=== PATIENT | male | born 1965 | race Caucasian/White ===

== ENCOUNTER 2020-03-20 06:00 | Inpatient (IN) | payer SELFPAY ==
[2020-03-20] MEDS ORDERED: Propofol 1,000 MG/100 ML VIAL IV ONE (06:06)
[2020-03-20] MEDS ORDERED: Labetalol HCl 100 MG/20 ML VIAL SLOW IVP PRN (06:38)
[2020-03-20] MEDS ORDERED: hydrALAZINE 20 MG/ML VIAL SLOW IVP PRN (06:38)
[2020-03-20] MEDS ORDERED: cloNIDine 0.1 MG TAB PO PRN (06:38)
[2020-03-20] MEDS ORDERED: Promethazine HCl 12.5 MG in Sodium Chloride 0.9% 50 ML IVPB PRN (06:38)
[2020-03-20] MEDS ORDERED: Morphine 2 MG/ML VIAL SLOW IVP PRN (06:43)
[2020-03-20] MEDS ORDERED: Propofol BOLUS 1,000 MG/100 ML VIAL IV PRN (06:43)
[2020-03-20] MEDS ORDERED: Fentanyl BOLUS 250 ML IVPB PRN (06:43)
[2020-03-20] MEDS ORDERED: DISCONTINUE PREVIOUS NARCOTIC PAIN MEDICATIONS AND BENZODIAZEPINES FS SCH (06:43)
[2020-03-20] MEDS ORDERED: fentaNYL Citrate/PF 2,000 MCG in Sodium Chloride 0.9% 60 ML IV SCH (06:43)
[2020-03-20] MEDS ORDERED: Norepinephrine 8 MG/0.9% NS 250 ML IVPB PRN (06:45)
[2020-03-20] MEDS ORDERED: Ventilator Sedation Protocol 1 EACH FS SCH (06:45)
[2020-03-20] MEDS ORDERED: Electrolyte Replacement Protoc 1 EACH EACH IVPB ONE (06:45)
[2020-03-20] MEDS ORDERED: HumaLOG 300 UNITS/3 ML VIAL SC PRN (06:45)
[2020-03-20] MEDS ORDERED: Electrolyte Replacement Protocol FS PRN (07:00)
[2020-03-20] MEDS ORDERED: ACETYLCYSTEINE IV SCH ×2 (07:15→11:15)
[2020-03-20] MEDS ORDERED: WATER IV SCH ×2 (07:15→11:15)
[2020-03-20] MEDS ORDERED: DEXTROSE 5% IV SCH ×2 (07:15→11:15)
[2020-03-20] MEDS: Lorazepam 2 MG/ML VIAL SLOW IVP PRN ×5 (07:30→17:22)
[2020-03-20] MEDS: Propofol 1,000 MG/100 ML VIAL IV PRN ×4 (07:31→20:02)
[2020-03-20 07:46] LABS: Actual Bicarbonate (HCO3a) 26.4 mEq/L (22-28); Base Excess (BEa) 1.1 mEq/L (-2.0 to +3.0); CO2 Tension 44.5 mmHg (35.0-45.0); Calcium, Ionized (arterial) 1.08 mmol/L (1.12-1.30); O2 Tension (PaO2), arterial 76.9 mmHg (80.0-100.0); Potassium - ABG Lab 2.96 mmol/L (3.70-5.30); pH, Arterial 7.39 (7.35-7.45)
--- NOTE | 2020-03-20 07:47 | RAD ---
Exam: Chest one view HISTORY:Respiratory distress. Status post intubation. Altered mental status. Comparison: 03/20/2020 at 4:09 AM FINDINGS: Lines and tubes: Redemonstration of endotracheal tube, nasogastric tube and a right-sided internal ju gular vascular catheter. Cardiac silhouette:Cardiomegaly Aorta: Unremarkable Pulmonary vessels: Normal Costophrenic angles: Clear LUNGS: Persistent multi focal interstitial and alveolar opacities. Pneumothorax: None Osseous abnormalities: None IMPRESSION: Persistent multi focal interstitial and alveolar opacities, unchanged.
[2020-03-20 07:50] LABS: ALV-art Gradient 580.475 (0-20); Puncture Site RRAD
[2020-03-20 11:26] LABS: Hemoglobin 11.2 g/dL (14.0-18.0); Mean Corpuscular HGB CONC 34.9 g/dL (32.0-36.0); Mean Corpuscular Hemoglobin 30.8 pg (27.0-31.0); Mean Corpuscular Volume 88.4 fL (78.0-98.0); Platelet Count 166 thou/uL (130-400); Red Blood Cell (RBC) Count 3.65 mill/uL (4.70-6.10)
[2020-03-20 11:33] LABS: Lactic Acid 1.8 mmol/L (0.5-2.2)
[2020-03-20 11:39] LABS: ALT (SGPT) 343 U/L (8-55); AST (SGOT) 495 U/L (5-34); Acetaminophen Less than 6.0 mcg/mL (10.0-30.0); Albumin 3.5 g/dL (3.5-5.0); Alkaline Phosphatase 52 U/L (40-110); Anion Gap 16 mmol/L (10-20); BUN (Urea Nitrogen) 38 mg/dL (8.4-25.7); Bilirubin, Total 0.9 mg/dL (0.2-1.2); Calc. Creatinine Clearance 98 mL/min (70-130); Calcium 8.5 mg/dL (7.8-10.44); Carbon Dioxide 30 mmol/L (22-29); Chloride 89 mmol/L (98-107); Estimated GFR-MDRD 55; Globulin 2.3 g/dL (2.4-3.5); Glucose 214 mg/dL (70-105); Protein, Total 5.8 g/dL (6.0-8.3); Sodium 132 mmol/L (136-145)
[2020-03-20 11:44] LABS: Potassium 2.7 mmol/L (3.5-5.1)
[2020-03-20 11:51] LABS: Band 2 % (5-11); Lymphocytes 14 % (21-51); MDiff Complete? YES; Monocytes 3 % (0-10); Neutrophil 81 % (42-75); Platelet Morphology Comment Appears Adequate; RBC Morphology Normal
[2020-03-20] MEDS: Potassium Chloride 40 MEQ in Premix Bag 1 BAG IVPB SCH ×3 (12:27→21:57)
[2020-03-20] MEDS ORDERED: Enoxaparin Sodium 40 MG/0.4 ML SYRINGE SC SCH (13:30)
--- NOTE | 2020-03-20 13:54 | PDOC.HHP ---
Hospitalist HPI - History of Present Illness altered mental status History of Present Illness: Mr. Mireles is a 54-year-old gentleman who was found at home unresponsive. He was initially taken to [place] emergency room and subsequently transferred to this facility for admission. He has a history of opioid addiction. He was reportedly started on methadone recently. He reportedly overdosed on Tylenol and methadone. Patient was reportedly agitated and saturating in the 60s, coughing up frothy red sputum. He was intubated and mechanically ventilated. Patient is currently intubated and mechanically ventilated, admitted to the CCU. He is receiving N-acetylcysteine. He also received dexamethasone furosemide and Zosyn. Hospitalist ROS - Review of Systems ROS unobtainable: due to endotracheal tube - Medication Medications: Active Medications Generic Name Dose Route Start Last Admin Trade Name Freq PRN Reason Stop Dose Admin Albuterol/Ipratropium 3 ml 03/20/20 07:00 03/20/20 12:50 Duoneb NEB 3 ml [id number] BRITTANIE Administration Enoxaparin Sodium 40 mg 03/20/20 13:30 03/20/20 13:23 Lovenox SC 03/20/20 15:30 40 mg NOW BRITTANIE Administration Acetylcysteine 11,000 mg/ 1,055 mls @ 65.938 mls/hr 03/20/20 11:15 03/20/20 10:54 Dextrose/Water IV 03/21/20 03:14 1,055 mls 1115 BRITTANIE Administration Potassium Chloride 40 meq/ 100 mls @ 25 mls/hr 03/20/20 13:00 03/20/20 12:27 Device IVPB 03/20/20 20:59 100 mls Q4H BRITTANIE Administration Lorazepam 2 mg 03/20/20 06:43 03/20/20 13:33 Ativan SLOW IVP 04/19/20 06:43 2 mg Q1H PRN Administration Breakthrough agitation Propofol 1,000 mg 03/20/20 06:43 03/20/20 10:54 Diprivan IV 04/19/20 06:43 1,000 mg INF PRN Administration TO ACHIEVE GOAL RASS Protocol Hospitalist History - Past Medical History Other Medical History: Past medical history is unknown, appears to include opioid addiction Past surgical history: Unknown Allergies: Unknown Current medications: Unknown Social history: Patient reportedly abused opiates and benzodiazepines - Exam General - other findings: Intubated and mechanically ventilated Eye: anicteric sclera ENT: moist mucosa ENT - other findings: ETT Neck: symmetric, no thyromegaly, no lymphadenopathy, no carotid bruit Heart: RRR, no gallops, no rubs, normal peripheral pulses Respiratory: CTAB, no wheezes, normal chest expansion, rales Gastrointestinal: soft, non-distended, normal bowel sounds, no palpable masses Skin: no lesions Psychiatric - other findings: Unable to assess Hospitalist Results - Labs Result Diagrams: 03/20/20 11:09 03/20/20 11:09 Lab results: WBC 13.0 thou/uL (4.8-10.8) H 03/20/20 11:09 Hgb 11.2 g/dL (14.0-18.0) L 03/20/20 11:09 Hct 32.3 % (42.0-52.0) L 03/20/20 11:09 MCV 88.4 fL (78.0-98.0) 03/20/20 11:09 Plt Count 166 thou/uL (130-400) 03/20/20 11:09 Band Neuts % (Manual) 2 % (5-11) L 03/20/20 11:09 ABG pH 7.39 (7.35-7.45) 03/20/20 07:22 ABG pCO2 44.5 mmHg (35.0-45.0) 03/20/20 07:22 ABG pO2 76.9 mmHg (80.0-100.0) L 03/20/20 07:22 Sodium 132 mmol/L (136-145) L 03/20/20 11:09 Potassium 2.7 mmol/L (3.5-5.1) L* 03/20/20 11:09 Chloride 89 mmol/L (98-107) L 03/20/20 11:09 Carbon Dioxide 30 mmol/L (22-29) H 03/20/20 11:09 BUN 38 mg/dL (8.4-25.7) H 03/20/20 11:09 Creatinine 1.36 mg/dL (0.7-1.3) H 03/20/20 11:09 Glucose 214 mg/dL (70-105) H 03/20/20 11:09 Lactic Acid 1.8 mmol/L (0.5-2.2) 03/20/20 11:09 Calcium 8.5 mg/dL (7.8-10.44) 03/20/20 11:09 Total Bilirubin 0.9 mg/dL (0.2-1.2) 03/20/20 11:09 AST 495 U/L (5-34) H 03/20/20 11:09 ALT 343 U/L (8-55) H 03/20/20 11:09 Alkaline Phosphatase 52 U/L (40-110) 03/20/20 11:09 Serum Total Protein 5.8 g/dL (6.0-8.3) L 03/20/20 11:09 Albumin 3.5 g/dL (3.5-5.0) 03/20/20 11:09 Arterial blood gases show pH of 7.21 PCO2 60.5 and PO2 of 78.9. - EKG Interpretation EKG: Telemetry: Normal sinus rhythm - Radiology Interpretation Chest x-ray Status: image reviewed by me Additional Comment: RADIOGRAPH CHEST 1 VIEW: DATE: 03/20/2020 TIME: 4:09 AM HISTORY: 54-year-old male status post intubation, central line placement, and orogastric tube placement. COMPARISON: 05/14/2004 FINDINGS: New multifocal patchy dense small and moderate size consolidations in the bilateral upper lobes, bila teral perihilar regions, and right central infrahilar lower lung zone. New endotracheal tube tip at mid thoracic trachea. New central vascular catheter distal tip overlying right apex at T2-3 level. Ne w esophagogastric tube with side-port at proximal body of stomach. Lateral costophrenic angles not effaced. No pneumothorax. IMPRESSION: 1) somewhat severe bilateral alveolar infiltrates/consolidations: Evidence for bilateral significant pneumonia. Hospitalist H&P A/P - Plan Plan: 1. Drug overdose: Patient overdosed on methadone and acetaminophen. He is currently on Mucomyst drip. QT intervals will be followed. 2.. Acute respiratory failure: Acute hypoxic and hypercapnic respiratory failure secondary to drug overdose versus medication induced pulmonary edema versus aspiration pneumonia. Patient has been started on Zosyn and furosemide, which will be continued. 3. Non-ST elevation myocardial infarction: Patient has an elevated troponin I of 1.649, most likely secondary to non-ST elevation myocardial infarction type II. Cardiology service will be consulted for opinion and help with management. 4. Hyponatremia: Mild, likely asymptomatic. 5.. Hypokalemia: Mild 6. Acute kidney injury: Patient's creatinine is 1.39. Will recheck creatinine with a.m. labs. Level of complexity: High Level of risk: High
[2020-03-20 14:12] LABS: Magnesium 2.3 mg/dL (1.6-2.6)
[2020-03-20 14:15] LABS: Phosphorus Less than 1.0 mg/dL (2.3-4.7)
[2020-03-20] MEDS ORDERED: Potassium Phosphate 30 MMOL in Sodium Chloride 0.9% 250 ML 250 ML IVPB SCH (14:30)
[2020-03-20] MEDS: Piperacillin/Tazobactam 3.375 GM in Sodium Chloride 0.9% 100 ML IVPB SCH ×2 (14:32→20:01)
[2020-03-20] MEDS ORDERED: Potassium Chloride 40 MEQ in Premix Bag 1 BAG IVPB SCH (16:00)
[2020-03-20] MEDS: Famotidine/PF 20 mg/2ml Vial SLOW IVP SCH (20:02)
[2020-03-20 20:30] LABS: Potassium 2.7 mmol/L (3.5-5.1)
[2020-03-20 20:34] LABS: Phosphorus 1.7 mg/dL (2.3-4.7)
[2020-03-20] MEDS ORDERED: Potassium Phosphate 15 MMOL in Sodium Chloride 0.9% 100 ML IVPB SCH (21:00)
[2020-03-21] MEDS: Piperacillin/Tazobactam 3.375 GM in Sodium Chloride 0.9% 100 ML IVPB SCH ×4 (01:02→19:44)
[2020-03-21] MEDS: Potassium Chloride 40 MEQ in Premix Bag 1 BAG IVPB SCH (01:04)
[2020-03-21] MEDS: Propofol 1,000 MG/100 ML VIAL IV PRN ×4 (05:18→18:05)
--- NOTE | 2020-03-21 05:42 | CON ---
DATE OF CONSULTATION: 03/20/2020 HISTORY OF PRESENT ILLNESS: Mr. Maradiaga is a 54-year-old who was admitted with an opiate overdose. Apparently, he has been on methadone. He also apparently has been on Tylenol No. 3. He is admitted to the ICU and is deeply sedated. PAST MEDICAL HISTORY: Unknown. FAMILY HISTORY: Unknown. SOCIAL HISTORY: Unknown. REVIEW OF SYSTEMS: Not obtainable. PHYSICAL EXAMINATION: GENERAL: If his sedation is turned down, he gets combative, but does not follow commands. VITAL SIGNS: Blood pressure 107/55, heart rate 74, and respiratory rate 17. HEAD AND NECK: Unremarkable. LUNGS: Clear. HEART: Regular rhythm. ABDOMEN: Soft. EXTREMITIES: Without edema. LABORATORY DATA: White count 13, hemoglobin 11.2, and platelets 156. Potassium is 2.7, and creatinine 1.36. A pH is 7.39, CO2 of 44, and pO2 of 76. IMPRESSION: Respiratory failure secondary to multiple drug overdose. PLAN: Support until the drugs have worn off. It may take a while for the methadone to wear off. CRITICAL CARE TIME: 30 minutes. Job ID: [id number] MTDD
[2020-03-21 05:44] LABS: #Lymphocytes 0.9 thou/uL (1.20-3.40); #Monocytes 0.9 thou/uL (0.11-0.59); #Neutrophils 14.7 thou/uL (1.40-6.50); %Basophils 0.3 % (0.0-1.0); %Eosinophils 0.1 % (0.0-10.0); %Lymphocytes 5.6 % (21.0-51.0); %Monocytes 5.2 % (0.0-10.0); %Neutrophils 88.9 % (42.0-75.0); Hemoglobin 10.5 g/dL (14.0-18.0); Mean Corpuscular Hemoglobin 30.3 pg (27.0-31.0); Mean Corpuscular Volume 89.1 fL (78.0-98.0); Mean Platelet Volume 10.4 fL (7.4-10.4); Platelet Count 169 thou/uL (130-400); RBC Distribution Width 12.3 % (11.5-14.5); Red Blood Cell (RBC) Count 3.46 mill/uL (4.70-6.10); White Blood Cell (WBC) Count 16.5 thou/uL (4.8-10.8)
[2020-03-21 06:01] LABS: Anion Gap 10 mmol/L (10-20); BUN (Urea Nitrogen) 33 mg/dL (8.4-25.7); Calc. Creatinine Clearance 126 mL/min (70-130); Calcium 8.5 mg/dL (7.8-10.44); Carbon Dioxide 34 mmol/L (22-29); Chloride 95 mmol/L (98-107); Estimated GFR-MDRD 73; Glucose 144 mg/dL (70-105); Sodium 136 mmol/L (136-145)
[2020-03-21 06:36] LABS: Acetaminophen Less than 6.0 mcg/mL (10.0-30.0); Magnesium 2.5 mg/dL (1.6-2.6)
[2020-03-21 06:42] LABS: Phosphorus 1.7 mg/dL (2.3-4.7)
[2020-03-21 07:02] LABS: Actual Bicarbonate (HCO3a) 27.8 mEq/L (22-28); Base Excess (BEa) 6.5 mEq/L (-2.0 to +3.0); CO2 Tension 29.9 mmHg (35.0-45.0); Calcium, Ionized (arterial) 1.11 mmol/L (1.12-1.30); Carboxyhemoglobin (COHb) 0.3 gm% (0.0-3.0); Hemoglobin (Hb) 13.8 g/dL (14.0-18.0); O2 Tension (PaO2), arterial 92.3 mmHg (80.0-100.0); Potassium - ABG Lab 3.02 mmol/L (3.70-5.30)
[2020-03-21 07:05] LABS: ALV-art Gradient 226.825 (0-20); Puncture Site RRAD; pH, Arterial 7.59 (7.35-7.45)
[2020-03-21] MEDS ORDERED: Potassium Chloride 40 MEQ in Premix Bag 1 BAG IVPB SCH (07:30)
[2020-03-21] MEDS ORDERED: Potassium Phosphate 15 MMOL in Sodium Chloride 0.9% 100 ML IVPB SCH ×2 (07:30→08:30)
[2020-03-21] MEDS: Famotidine/PF 20 mg/2ml Vial SLOW IVP SCH ×2 (07:55→20:04)
[2020-03-21] MEDS: Furosemide 40 MG/4 ML VIAL SLOW IVP SCH (07:56)
[2020-03-21] MEDS: Lorazepam 2 MG/ML VIAL SLOW IVP PRN ×4 (07:56→16:58)
[2020-03-21] MEDS: Enoxaparin Sodium 40 MG/0.4 ML SYRINGE SC SCH (07:57)
[2020-03-21] MEDS ORDERED: SODIUM CHLORIDE 0.9% IVPB SCH (08:30)
[2020-03-21] MEDS ORDERED: POTASSIUM CHLORIDE IVPB SCH (08:30)
[2020-03-21 12:18] LABS: Anion Gap 11 mmol/L (10-20); BUN (Urea Nitrogen) 32 mg/dL (8.4-25.7); Calc. Creatinine Clearance 119 mL/min (70-130); Calcium 8.4 mg/dL (7.8-10.44); Carbon Dioxide 35 mmol/L (22-29); Chloride 98 mmol/L (98-107); Estimated GFR-MDRD 68; Glucose 137 mg/dL (70-105); Phosphorus 2.9 mg/dL (2.3-4.7); Potassium 3.5 mmol/L (3.5-5.1); Sodium 140 mmol/L (136-145)
--- NOTE | 2020-03-21 12:51 | CON ---
DATE OF CONSULTATION: 03/21/2020 REASON FOR CONSULTATION: Elevated troponins. HISTORY OF PRESENT ILLNESS: Mr. Maradiaga is a 54-year-old black gentleman, who comes to the hospital for respiratory failure. He apparently overdosed on opiates and Tylenol No. 3, so he was admitted for help with his airway. He is intubated and is already starting to wake up. On my evaluation, he remains intubated and sedated and unable to give me any history. During his initial evaluation, a troponin was drawn that showed troponin of 1.6, so Cardiology has been consulted for this. PAST MEDICAL HISTORY: Unknown. Apparently, opiate addiction. SURGICAL HISTORY: Unobtainable. ALLERGIES: UNOBTAINABLE. OUTPATIENT MEDICATIONS: Unobtainable. SOCIAL HISTORY: Per report, opiate abuse as well as benzodiazepines, but otherwise unable to confirm with the patient. REVIEW OF SYSTEMS: Unobtainable as the patient is sedated and intubated. PHYSICAL EXAMINATION: VITAL SIGNS: Temperature 98.1, pulse 83, respiratory rate 15, saturations are 96% on 50% FiO2. Blood pressure 115/50. GENERAL: Sedated and intubated. NECK: Supple. LUNGS: Have coarse breath sounds anteriorly. CARDIOVASCULAR: S1 and S2. No S3 or S4. No murmurs. ABDOMEN: Soft. Positive bowel sounds. EXTREMITIES: No edema. SKIN: Warm and dry. LABORATORY WORK: Reviewed. On admission, white count was 19, hemoglobin 12, hematocrit 35, platelet count of 267. Coags and ABG were reviewed. Chemistry: Potassium was 2.7 yesterday, has been replaced up to 3.0; phos was low at 1.7; magnesium was normal at 2.3. Troponin was 1.6 with a CK-MB of 38, BNP was 1466. TSH was normal. Albumin was 3.5. UA with 1+ bacteria, 11 to 20 hyaline casts. Urine drug screen was positive for methadone, benzodiazepines. Serology, COVID-19 PCR was not detected. Chest x-ray showed bilateral alveolar infiltrates and consolidations, possible pneumonia, aspiration, also could be pulmonary edema. ASSESSMENT: 1. Acute hypoxic respiratory insufficiency, requiring mechanical ventilation. 2. Opiate and benzodiazepine overdose. 3. Prolonged QT on EKG, currently at 520. 4. Ump-[id number] myocardial infarction. Likely type 2 demand type of ischemia. 5. Acute on chronic systolic versus diastolic heart failure. PLAN: 1. We will get echocardiogram to assess LV function and valvular structures. 2. We will get one more troponin, see where this is going. If his troponin increases tremendously, he will need a heart catheterization for risk stratification. 3. Continue supportive care. Thank you for letting us participate in the care of this patient. We will follow. Forty five minutes of critical care time. Job ID: [id number]
[2020-03-21 13:08] LABS: CKMB 6.5 ng/mL (0-6.6)
--- NOTE | 2020-03-21 15:16 | PRG ---
DATE OF SERVICE: 03/21/2020 OBJECTIVE: VITAL SIGNS: Mr. Maradiaga is afebrile. Heart rate is 87, blood pressure 116/55, respiratory rate 22. LUNGS: Unchanged. HEART: Unchanged. ABDOMEN: Unchanged. NEUROLOGIC: He is still not following commands reliably when sedation is held. IMPRESSION: Multiple opiate overdose. His lab work is essentially unchanged. He has mild leukocytosis. His renal function is stable. Blood gas shows a pH of 7.59, CO2 of 29, and pO2 of 92. Respiratory rate will be decreased. We will extubate him until he is reliably following commands. We will add Precedex. Critical care time 30 min. Job ID: [id number] MTDD
[2020-03-21] MEDS ORDERED: Potassium Chloride 40 MEQ in Sodium Chloride 0.9% 250 ML 250 ML IVPB SCH (17:15)
--- NOTE | 2020-03-21 19:36 | PDOC.HOSPP ---
- Subjective Encounter Date: 03/21/20 Encounter Time: 13:30 Subjective: Patient was seen in follow-up for drug overdose. He is currently intubated, could not obtain review of systems. - Objective Vital Signs & Weight: Vital Signs (12 hours) Temp Pulse Resp Pulse Ox 03/21/20 18:50 76 21 H 93 L 03/21/20 15:59 98 F 03/21/20 15:22 21 H 03/21/20 14:32 85 03/21/20 14:00 98.3 F 03/21/20 13:00 98.3 F 03/21/20 10:20 81 Weight Admit Weight 240 lb Weight 242 lb 11.663 oz Most Recent Monitor Data Heart Rate from ECG 76 NIBP 112/54 NIBP BP-Mean 73 Respiration from ECG 20 SpO2 93 I&O: 03/20/20 03/21/20 03/22/20 06:59 06:59 06:59 Intake Total 2194 627 Output Total 400 2380 1290 Balance -093 -075 -372 Result Diagrams: 03/21/20 05:15 03/21/20 11:45 Additional Labs: Accuchecks 03/21/20 03/21/20 17:15 00:16 POC Glucose 157 H 180 H MAR and labs were reviewed by me. EKG Reviewed by me: Yes (Telemetry normal sinus rhythm, prolonged QT interval) Hospitalist ROS - Review of Systems ROS unobtainable: due to endotracheal tube - Medication Medications: Active Medications Generic Name Dose Route Start Last Admin Trade Name Freq PRN Reason Stop Dose Admin Albuterol/Ipratropium 3 ml 03/20/20 07:00 03/21/20 18:50 Duoneb NEB 3 ml [id number] BRITTANIE Administration Enoxaparin Sodium 40 mg 03/21/20 09:00 03/21/20 07:57 Lovenox SC 40 mg 0900 BRITTANIE Administration Famotidine 20 mg 03/20/20 21:00 03/21/20 07:55 Pepcid SLOW IVP 20 mg BID BRITTANIE Administration Furosemide 40 mg 03/21/20 09:00 03/21/20 07:56 Lasix SLOW IVP 40 mg DAILY BRITTANIE Administration Piperacillin Sod/Tazobactam 100 mls @ 200 mls/hr 03/20/20 14:00 03/21/20 12: 33 Sod 3.375 gm/ Sodium Chloride IVPB 100 mls 0200,0800,1400,2000 BRITTANIE Administration Dexmedetomidine HCl 400 mcg/ 100 mls @ 0 mls/hr 03/21/20 11:00 03/21/20 12:27 Sodium Chloride IVPB 100 mls INF BRITTANIE Administration Protocol Per Protocol Dexmedetomidine HCl 400 mcg/ 100 mls @ 0 mls/hr 03/21/20 11:45 03/21/20 15:23 Sodium Chloride IVPB 100 mls INF BRITTANIE Administration Protocol Titrate Lorazepam 2 mg 03/20/20 06:43 03/21/20 16:58 Ativan SLOW IVP 04/19/20 06:43 2 mg Q1H PRN Administration Breakthrough agitation Propofol 1,000 mg 03/20/20 06:43 03/21/20 18:05 Diprivan IV 04/19/20 06:43 1,000 mg INF PRN Administration TO ACHIEVE GOAL RASS Protocol - Exam General - other findings: Intubated, obese Eye: anicteric sclera ENT: moist mucosa Neck: supple Heart: RRR Respiratory: CTAB Gastrointestinal: soft, non-tender Musculoskeletal: no muscle wasting Psychiatric - other findings: Unable to assess Hosp A/P - Plan continue antibiotics, respiratory therapy Assessment and plan #1 drug overdose: Poison Control Center's instructions being carried out. Patient on Mucomyst for acetaminophen poisoning. 2.. Acute hypoxic respiratory failure: Patient is currently intubated, mechanically ventilated in the CCU. 3. Non-ST elevation myocardial infarction: Likely type II 4. pulmonary edema: Naloxone induced versus secondary to non-ST elevation myocardial infarction type II. Patient is receiving diuretics. 5. Aspiration pneumonia: Continue Zosyn.
[2020-03-22] MEDS: Lorazepam 2 MG/ML VIAL SLOW IVP PRN ×3 (02:50→16:20)
[2020-03-22] MEDS: Piperacillin/Tazobactam 3.375 GM in Sodium Chloride 0.9% 100 ML IVPB SCH ×4 (02:50→20:13)
[2020-03-22] MEDS: Propofol 1,000 MG/100 ML VIAL IV PRN ×4 (03:19→20:13)
[2020-03-22 05:32] LABS: Anion Gap 8 mmol/L (10-20); BUN (Urea Nitrogen) 31 mg/dL (8.4-25.7); Calc. Creatinine Clearance 132 mL/min (70-130); Carbon Dioxide 35 mmol/L (22-29); Chloride 102 mmol/L (98-107); Estimated GFR-MDRD 77; Glucose 137 mg/dL (70-105); Potassium 3.8 mmol/L (3.5-5.1); Sodium 141 mmol/L (136-145)
[2020-03-22 05:43] LABS: Band 5 % (5-11); Hemoglobin 10.5 g/dL (14.0-18.0); Lymphocytes 9 % (21-51); MDiff Complete? YES; Mean Corpuscular HGB CONC 32.7 g/dL (32.0-36.0); Mean Corpuscular Hemoglobin 29.8 pg (27.0-31.0); Mean Corpuscular Volume 91.2 fL (78.0-98.0); Mean Platelet Volume 10.5 fL (7.4-10.4); Monocytes 1 % (0-10); Neutrophil 85 % (42-75); Platelet Count 196 thou/uL (130-400); RBC Distribution Width 12.8 % (11.5-14.5); Red Blood Cell (RBC) Count 3.54 mill/uL (4.70-6.10); White Blood Cell (WBC) Count 13.5 thou/uL (4.8-10.8)
[2020-03-22 05:54] LABS: Phosphorus 2.1 mg/dL (2.3-4.7)
[2020-03-22] MEDS: Furosemide 40 MG/4 ML VIAL SLOW IVP SCH (07:14)
[2020-03-22] MEDS: Famotidine/PF 20 mg/2ml Vial SLOW IVP SCH ×2 (07:15→20:13)
[2020-03-22] MEDS: Enoxaparin Sodium 40 MG/0.4 ML SYRINGE SC SCH (07:15)
--- NOTE | 2020-03-22 08:28 | RAD ---
XR Chest 1 View Portable History: Ventilated patient. Comparison: Radiograph March 20, 2020 Findings: Endotracheal tube tip just below the level of clavicles. Enteric tube tip low diaphragm alt nisha out of field of view. Peripheral airspace opacities throughout the lungs appear less confluent from the comparison exam. Heart size is enlarged. Right IJ central venous catheter tip projects over the mid SVC. Impression: Slight decreased confluent nodular appearance of the airspace opacities which are now sli ghtly more peripheral and less prominent.
--- NOTE | 2020-03-22 11:22 | PDOC.HOSPP ---
- Subjective Encounter Date: 03/22/20 Encounter Time: 11:20 Subjective: Mr. Maradiaga was seen today in follow-up of respiratory failure. He is intubated and sedated. No problems voiced by staff. - Objective Vital Signs & Weight: Vital Signs (12 hours) Temp Pulse Resp BP Pulse Ox 03/22/20 11:04 75 133/71 03/22/20 07:59 98.8 F 03/22/20 07:00 98.8 F 21 H 91 L 03/22/20 06:45 77 122/63 03/22/20 06:00 23 H 03/22/20 04:00 98.4 F 22 H 03/22/20 02:00 23 H 03/22/20 00:00 98.1 F 24 H 03/21/20 23:34 76 22 H 93 L Weight Admit Weight 240 lb Weight 241 lb 4.8 oz Most Recent Monitor Data Heart Rate from ECG 75 NIBP 133/71 NIBP BP-Mean 91 Respiration from ECG 21 SpO2 93 I&O: 03/21/20 03/22/20 03/23/20 06:59 06:59 06:59 Intake Total 2194 1067 0 Output Total 2380 1999 1250 [facility] -186 -933 -1250 Result Diagrams: 03/22/20 04:15 03/22/20 04:15 Additional Labs: Accuchecks 03/22/20 03/21/20 03/21/20 09:49 22:13 17:15 POC Glucose 139 H 147 H 157 H Hospitalist ROS - Medication Medications: Active Medications Generic Name Dose Route Start Last Admin Trade Name Verito PRN Reason Stop Dose Admin Albuterol/Ipratropium 3 ml 03/20/20 07:00 03/22/20 06:41 Duoneb NEB 3 ml [id number] BRITTANIE Administration Enoxaparin Sodium 40 mg 03/21/20 09:00 03/22/20 07:15 Lovenox SC 40 mg 0900 BRITTANIE Administration Famotidine 20 mg 03/20/20 21:00 03/22/20 07:15 Pepcid SLOW IVP 20 mg BID BRITTANIE Administration Furosemide 40 mg 03/21/20 09:00 03/22/20 07:14 Lasix SLOW IVP 40 mg DAILY BRITTANIE Administration Piperacillin Sod/Tazobactam 100 mls @ 200 mls/hr 03/20/20 14:00 03/22/20 07: 15 Sod 3.375 gm/ Sodium Chloride IVPB 100 mls 0200,0800,1400,2000 BRITTANIE Administration Dexmedetomidine HCl 400 mcg/ 100 mls @ 0 mls/hr 03/21/20 11:00 03/22/20 07:50 Sodium Chloride IVPB 100 mls INF BRITTANIE Administration Protocol Per Protocol Dexmedetomidine HCl 400 mcg/ 100 mls @ 0 mls/hr 03/21/20 11:45 03/22/20 11:07 Sodium Chloride IVPB 100 mls INF BRITTANIE Administration Protocol Titrate Lorazepam 2 mg 03/20/20 06:43 03/22/20 11:11 Ativan SLOW IVP 04/19/20 06:43 2 mg Q1H PRN Administration Breakthrough agitation Propofol 1,000 mg 03/20/20 06:43 03/22/20 07:20 Diprivan IV 04/19/20 06:43 1,000 mg INF PRN Administration TO ACHIEVE GOAL RASS Protocol - Exam Eye: PERRL, anicteric sclera Heart: RRR, no murmur, no gallops, no rubs, normal peripheral pulses Respiratory: rhonchi (+ coarse breath sounds bilaterally and rales at the bases) Gastrointestinal: soft, non-tender, non-distended, normal bowel sounds Extremities: no cyanosis, 1+ LE edema Hosp A/P (1) Acute respiratory failure with hypoxemia Code(s): J96.01 - ACUTE RESPIRATORY FAILURE WITH HYPOXIA Status: Acute (2) Aspiration pneumonia Code(s): J69.0 - PNEUMONITIS DUE TO INHALATION OF FOOD AND VOMIT Status: Acute (3) Methadone overdose Code(s): T40.3X1A - POISONING BY METHADONE, ACCIDENTAL (UNINTENTIONAL), INIT Status: Acute - Plan * Acute respiratory failure due to overdose on Methadone, and aspiration pneumonia. He continues to require vent support. * Aspiration pneumonia- continue Zosyn * Wean from the vent as per PCCM * Continue DVT and GI Prophyaxis
--- NOTE | 2020-03-22 16:40 | PDOC.CPN ---
- Subjective Date: 03/22/20 Time: 16:38 Interval history: No new issues. Remains sedated and intubated. - Review of Systems ROS unobtainable: due to endotracheal tube - Objective Allergies/Adverse Reactions: Allergies Allergy/AdvReac Type Severity Reaction Status Date / Time No Allergy Information Allergy Unverified 03/20/20 06:43 Available Visit Medications: Current Medications Albuterol/Ipratropium (Duoneb) 3 ml NEB [id number] [facility] Last Admin: 03/22/20 13:41 Dose: 3 ml Albuterol/Ipratropium (Duoneb) 3 ml NEB Q6H PRN PRN Reason: SOB &/or Wheezing Clonidine (Catapres) 0.1 mg PO BIDPRN PRN PRN Reason: SBP > 160, use second Enoxaparin Sodium (Lovenox) 40 mg SC 0900 [facility] Last Admin: 03/22/20 07:15 Dose: 40 mg Famotidine (Pepcid) 20 mg SLOW IVP BID [facility] Last Admin: 03/22/20 07:15 Dose: 20 mg Furosemide (Lasix) 40 mg SLOW IVP DAILY [facility] Last Admin: 03/22/20 07:14 Dose: 40 mg Hydralazine HCl (Apresoline) 10 mg SLOW IVP Q6H PRN PRN Reason: SBP GREATER THAN 160 Promethazine HCl 12.5 mg/ (Sodium Chloride) 50.5 mls @ 202 mls/hr IVPB Q6H PRN PRN Reason: Nausea/vomiting, use second Fentanyl Citrate 2,000 mcg/ (Sodium Chloride) 100 mls @ 0 mls/hr IV INF [facility]; Protocol Stop: 04/19/20 06:43 Fentanyl Citrate (Fentanyl Bolus) 250 mls @ 0 mls/hr IVPB PRN PRN PRN Reason: Breakthrough pain/agitation Stop: 04/19/20 06:43 Norepinephrine Bitartrate (Levophed) 250 mls @ 0 mls/hr IVPB PRN PRN; Protocol PRN Reason: To maintain MAP > 65 Vasopressin 20 unit/ Sodium (Chloride) 51 mls @ 6 mls/hr IV INF PRN PRN Reason: To maintain MAP > 65 Piperacillin Sod/Tazobactam (Sod 3.375 gm/ Sodium Chloride) 100 mls @ 200 mls/ hr IVPB 0200,0800,1400,2000 BRITTANIE Last Admin: 03/22/20 14:26 Dose: 100 mls Dexmedetomidine HCl 400 mcg/ (Sodium Chloride) 100 mls @ 0 mls/hr IVPB INF BRITTANIE ; Protocol Last Admin: 03/22/20 07:50 Dose: 100 mls Dexmedetomidine HCl 400 mcg/ (Sodium Chloride) 100 mls @ 0 mls/hr IVPB INF BRITTANIE ; Protocol Last Admin: 03/22/20 11:07 Dose: 100 mls Insulin Human Lispro (Humalog) 0 units SC .MILD SLIDING SCALE PRN PRN Reason: Mild Correctional Scale Labetalol HCl (Normodyne) 20 mg SLOW IVP Q4H PRN PRN Reason: SBP > 160, use third Lorazepam (Ativan) 2 mg SLOW IVP Q1H PRN PRN Reason: Breakthrough agitation Stop: 04/19/20 06:43 Last Admin: 03/22/20 16:20 Dose: 2 mg Miscellaneous Medication (Electrolyte Replacement Protocol) 0 each FS ASDIR PRN ; Protocol PRN Reason: ELECTROLYTE REPLACEMENT Morphine Sulfate (Morphine) 2 mg SLOW IVP Q1H PRN PRN Reason: Breakthrough Pain/Agitation Stop: 04/19/20 06:43 Discontinue Previous Narcotic Pain Medications And Benzodiazepines 1 each FS .ONE BRITTANIE Stop: 04/19/20 06:43 Ondansetron HCl (Zofran) 4 mg IVP Q6H PRN PRN Reason: Nausea/Vomiting, use 1st Propofol (Diprivan) 1,000 mg IV INF PRN; Protocol PRN Reason: TO ACHIEVE GOAL RASS Stop: 04/19/20 06:43 Last Admin: 03/22/20 11:49 Dose: 1,000 mg Propofol (Diprivan Bolus) 20 mg IV Q5MIN PRN PRN Reason: BREAKTHROUGH AGITATION Stop: 04/19/20 06:43 Vital Signs & Weight: Vital Signs Temp Pulse Resp BP Pulse Ox 03/22/20 15:26 70 140/74 03/22/20 14:00 17 03/22/20 13:41 76 141/74 H 03/22/20 11:04 75 133/71 03/22/20 07:59 98.8 F 03/22/20 07:00 98.8 F 21 H 91 L 03/22/20 06:45 77 122/63 03/22/20 06:00 23 H Admit Weight 240 lb Weight 241 lb 4.8 oz - Physical Exam General: other (S/I) HEENT: normocephaly Neck: supple neck Cardiac: regular rate and rhythm Lungs: clear to auscultation Neuro: no lateralizing findings Abdomen: active bowel sounds Extremities: 1+ LE edema Skin: clear Musculoskeletal: normal range of motion - Labs Result Diagrams: 03/22/20 04:15 03/22/20 04:15 Troponin/CKMB CK-MB (CK-2) 6.5 ng/mL (0-6.6) 03/21/20 11:45 Troponin I 2.230 ng/mL (< 0.028) H* 03/21/20 11:45 - Telemetry Sinus rhythms and dysrhythmias: sinus rhythm - Assessment/Plan Assessment/Plan: 1. Acute hypoxic respiratory insufficiency, requiring mechanical ventilation. 2. Opiate and benzodiazepine overdose. 3. Prolonged QT, improving. 4. Swi-KP-rxycmzjjh myocardial infarction. Likely type 2 demand type of ischemia. 5. Acute on chronic systolic versus diastolic heart failure. PLAN: - Echo pending today. - Continue supportive care. - Repeat EKG tomorrow AM.
--- NOTE | 2020-03-22 20:31 | PRG ---
DATE OF SERVICE: 03/22/2020 SUBJECTIVE: Diallo Maradiaga still does not follow commands, gets tachypneic and agitated when sedation is held. OBJECTIVE: VITAL SIGNS: He is afebrile. Heart rate is in the 60s, blood pressure 136/75. LUNGS: Clear. HEART: Regular rhythm. ABDOMEN: Soft. EXTREMITIES: Without asymmetry or edema. He moves all 4 extremities equally. LABORATORY DATA: White count 13.5, hemoglobin 10.5, platelets 196. Sodium 141, potassium 3.8, chloride 102, bicarb 35, BUN 31, creatinine 1.02, glucose 135. IMPRESSION: 1. Multiple drug overdose. 2. Probable noncardiogenic edema. ? neurogenic pulmonary edema associated with his drug overdose. He does have diastolic dysfunction by echo. Some of this could be a chemical pneumonitis related to aspiration as well. He is not near any point of weaning or extubation in my opinion. Blood gas is not done today. I guess we dealing with an acid-base disorder. We will check a blood gas in the morning. Critical care time was 30 min. Job ID: [id number] MTDD
[2020-03-23] MEDS: Propofol 1,000 MG/100 ML VIAL IV PRN ×3 (02:09→17:24)
[2020-03-23] MEDS: Piperacillin/Tazobactam 3.375 GM in Sodium Chloride 0.9% 100 ML IVPB SCH ×4 (02:20→19:56)
[2020-03-23 05:13] LABS: #Lymphocytes 1.9 thou/uL (1.20-3.40); #Monocytes 1.1 thou/uL (0.11-0.59); #Neutrophils 9.4 thou/uL (1.40-6.50); %Basophils 0.2 % (0.0-1.0); %Eosinophils 0.2 % (0.0-10.0); %Neutrophils 75.6 % (42.0-75.0); Hemoglobin 11.8 g/dL (14.0-18.0); Mean Corpuscular HGB CONC 34.4 g/dL (32.0-36.0); Mean Corpuscular Hemoglobin 31.4 pg (27.0-31.0); Mean Corpuscular Volume 91.2 fL (78.0-98.0); Mean Platelet Volume 9.8 fL (7.4-10.4); Platelet Count 192 thou/uL (130-400); RBC Distribution Width 12.7 % (11.5-14.5); Red Blood Cell (RBC) Count 3.74 mill/uL (4.70-6.10); White Blood Cell (WBC) Count 12.4 thou/uL (4.8-10.8)
[2020-03-23 05:25] LABS: Anion Gap 11 mmol/L (10-20); BUN (Urea Nitrogen) 30 mg/dL (8.4-25.7); Calc. Creatinine Clearance 163 mL/min (70-130); Calcium 8.6 mg/dL (7.8-10.44); Carbon Dioxide 32 mmol/L (22-29); Chloride 105 mmol/L (98-107); Estimated GFR-MDRD Greater than 90; Glucose 124 mg/dL (70-105); Potassium 3.9 mmol/L (3.5-5.1); Sodium 144 mmol/L (136-145)
[2020-03-23 05:57] LABS: Band 8 % (5-11); Hemoglobin 11.6 g/dL (14.0-18.0); Lymphocytes 13 % (21-51); MDiff Complete? YES; Mean Corpuscular HGB CONC 33.7 g/dL (32.0-36.0); Mean Corpuscular Hemoglobin 30.6 pg (27.0-31.0); Mean Corpuscular Volume 90.8 fL (78.0-98.0); Mean Platelet Volume 9.9 fL (7.4-10.4); Monocytes 6 % (0-10); Neutrophil 73 % (42-75); Platelet Count 193 thou/uL (130-400); RBC Distribution Width 12.5 % (11.5-14.5); White Blood Cell (WBC) Count 12.5 thou/uL (4.8-10.8)
[2020-03-23] MEDS: Famotidine/PF 20 mg/2ml Vial SLOW IVP SCH ×2 (07:29→21:09)
[2020-03-23] MEDS: Furosemide 40 MG/4 ML VIAL SLOW IVP SCH (07:29)
[2020-03-23] MEDS: Enoxaparin Sodium 40 MG/0.4 ML SYRINGE SC SCH (07:29)
--- NOTE | 2020-03-23 08:22 | RAD ---
EXAM: CHEST ONE VIEW HISTORY: On ventilator. Follow-up evaluation. COMPARISON: 03/22/2020 FINDINGS: Endotracheal tube and nasogastric tubes remain in place. Right-sided vascular catheter is again noted in place, but the tip appears to have been mildly advanced and now overlies the expected location of the distal SVC. Increased opacity is again seen at the left lung base. Interstitial and patchy air space opacity is seen at the right lung base. Perihilar interstitial densities appear mildly improved some of which could be related to improvement in depth of inspiration on the current exam. N o other interval change. IMPRESSION: 1. Improvement in perihilar as well as peripheral airspace opacities within the lungs. However, there is increased airspace opacity present at the right lung base. There is suboptimal evaluation of the left lung base due to overlying cardiac silhouette and soft tissue density, but there also appear s to be increased parenchymal opacity at the left lung base. Findings at the left lung base could be related to pleural fluid, pneumonia, or atelectasis.
[2020-03-23 09:44] LABS: Actual Bicarbonate (HCO3a) 27.7 mEq/L (22-28); Base Excess (BEa) 3.7 mEq/L (-2.0 to +3.0); CO2 Tension 39.7 mmHg (35.0-45.0); Calcium, Ionized (arterial) 1.13 mmol/L (1.12-1.30); Carboxyhemoglobin (COHb) 0.3 gm% (0.0-3.0); O2 Tension (PaO2), arterial 67.4 mmHg (80.0-100.0); Potassium - ABG Lab 3.65 mmol/L (3.70-5.30); pH, Arterial 7.46 (7.35-7.45)
[2020-03-23 09:48] LABS: Puncture Site RBA
[2020-03-23 09:49] LABS: ALV-art Gradient 168.175 (0-20)
--- NOTE | 2020-03-23 10:05 | PDOC.HOSPP ---
- Subjective Encounter Date: 03/23/20 Encounter Time: 10:04 Subjective: Mr. Maradiaga was seen today in follow-up of respiratory failure due to opiod overdose and aspiration pneumonia. He is intubated and sedated. No problems voiced by staff. - Objective Vital Signs & Weight: Vital Signs (12 hours) Temp Pulse Resp BP Pulse Ox 03/23/20 08:41 58 L 03/23/20 07:19 22 H 99 03/23/20 07:00 99 F 03/23/20 04:00 98.7 F 03/23/20 02:16 63 133/75 03/23/20 02:00 17 03/23/20 00:51 61 16 99 03/23/20 00:00 98.4 F 18 03/22/20 22:17 64 131/73 Weight Admit Weight 240 lb Weight 242 lb 6.4 oz Most Recent Monitor Data Heart Rate from ECG 64 NIBP 125/64 NIBP BP-Mean 84 Respiration from ECG 15 SpO2 97 I&O: 03/22/20 03/23/20 03/24/20 06:59 06:59 06:59 Intake Total 1067 944 0 Output Total 1999 6545 1300 Balance -933 -1641 -1300 Result Diagrams: 03/23/20 03:30 03/23/20 03:30 Additional Labs: Accuchecks 03/22/20 03/22/20 21:13 14:27 POC Glucose 133 H 135 H Hospitalist ROS - Medication Medications: Active Medications Generic Name Dose Route Start Last Admin Trade Name Freq PRN Reason Stop Dose Admin Albuterol/Ipratropium 3 ml 03/20/20 07:00 03/23/20 08:40 Duoneb NEB 3 ml [id number] BRITTANIE Administration Enoxaparin Sodium 40 mg 03/21/20 09:00 03/23/20 07:29 Lovenox SC 40 mg 0900 BRITTANIE Administration Famotidine 20 mg 03/20/20 21:00 03/23/20 07:29 Pepcid SLOW IVP 20 mg BID BRITTANIE Administration Furosemide 40 mg 03/21/20 09:00 03/23/20 07:29 Lasix SLOW IVP 40 mg DAILY BRITTANIE Administration Piperacillin Sod/Tazobactam 100 mls @ 200 mls/hr 03/20/20 14:00 03/23/20 07: 30 Sod 3.375 gm/ Sodium Chloride IVPB 100 mls 0200,0800,1400,2000 BRITTANIE Administration Dexmedetomidine HCl 400 mcg/ 100 mls @ 0 mls/hr 03/21/20 11:45 03/22/20 11:07 Sodium Chloride IVPB 100 mls INF BRITTANIE Administration Protocol Titrate Lorazepam 2 mg 03/20/20 06:43 03/22/20 16:20 Ativan SLOW IVP 04/19/20 06:43 2 mg Q1H PRN Administration Breakthrough agitation Propofol 1,000 mg 03/20/20 06:43 03/23/20 02:09 Diprivan IV 04/19/20 06:43 1,000 mg INF PRN Administration TO ACHIEVE GOAL RASS Protocol - Exam Eye: PERRL, anicteric sclera Heart: RRR, no murmur, no gallops, no rubs, normal peripheral pulses Respiratory: rhonchi (+ coarse breath sounds at the bases) Gastrointestinal: soft, normal bowel sounds Extremities: no cyanosis, no edema Hosp A/P (1) Acute respiratory failure with hypoxemia Code(s): J96.01 - ACUTE RESPIRATORY FAILURE WITH HYPOXIA Status: Acute (2) Aspiration pneumonia Code(s): J69.0 - PNEUMONITIS DUE TO INHALATION OF FOOD AND VOMIT Status: Acute (3) Methadone overdose Code(s): T40.3X1A - POISONING BY METHADONE, ACCIDENTAL (UNINTENTIONAL), INIT Status: Acute - Plan * Acute respiratory failure due to overdose on Methadone, and aspiration pneumonia. He continues to require vent support. * Aspiration pneumonia- continue Zosyn * Wean from the vent as per PCCM * Continue DVT and GI Prophyaxis * Nutritional support with tube feeding
--- NOTE | 2020-03-23 12:27 | PDOC.CPN ---
- Subjective Date: 03/23/20 Time: 12:24 Interval history: No new issues. Remains sedated and intubated. - Review of Systems ROS unobtainable: due to endotracheal tube - Objective Allergies/Adverse Reactions: Allergies Allergy/AdvReac Type Severity Reaction Status Date / Time No Allergy Information Allergy Unverified 03/20/20 06:43 Available Visit Medications: Current Medications Albuterol/Ipratropium (Duoneb) 3 ml NEB [id number] [facility] Last Admin: 03/23/20 08:40 Dose: 3 ml Albuterol/Ipratropium (Duoneb) 3 ml NEB Q6H PRN PRN Reason: SOB &/or Wheezing Clonidine (Catapres) 0.1 mg PO BIDPRN PRN PRN Reason: SBP > 160, use second Enoxaparin Sodium (Lovenox) 40 mg SC 0900 [facility] Last Admin: 03/23/20 07:29 Dose: 40 mg Famotidine (Pepcid) 20 mg SLOW IVP BID [facility] Last Admin: 03/23/20 07:29 Dose: 20 mg Furosemide (Lasix) 40 mg SLOW IVP DAILY [facility] Last Admin: 03/23/20 07:29 Dose: 40 mg Hydralazine HCl (Apresoline) 10 mg SLOW IVP Q6H PRN PRN Reason: SBP GREATER THAN 160 Promethazine HCl 12.5 mg/ (Sodium Chloride) 50.5 mls @ 202 mls/hr IVPB Q6H PRN PRN Reason: Nausea/vomiting, use second Fentanyl Citrate 2,000 mcg/ (Sodium Chloride) 100 mls @ 0 mls/hr IV INF [facility]; Protocol Stop: 04/19/20 06:43 Fentanyl Citrate (Fentanyl Bolus) 250 mls @ 0 mls/hr IVPB PRN PRN PRN Reason: Breakthrough pain/agitation Stop: 04/19/20 06:43 Norepinephrine Bitartrate (Levophed) 250 mls @ 0 mls/hr IVPB PRN PRN; Protocol PRN Reason: To maintain MAP > 65 Vasopressin 20 unit/ Sodium (Chloride) 51 mls @ 6 mls/hr IV INF PRN PRN Reason: To maintain MAP > 65 Piperacillin Sod/Tazobactam (Sod 3.375 gm/ Sodium Chloride) 100 mls @ 200 mls/ hr IVPB 0200,0800,1400,2000 [facility] Last Admin: 03/23/20 07:30 Dose: 100 mls Dexmedetomidine HCl 400 mcg/ (Sodium Chloride) 100 mls @ 0 mls/hr IVPB INF BRITTANIE ; Protocol Last Admin: 03/22/20 11:07 Dose: 100 mls Insulin Human Lispro (Humalog) 0 units SC .MILD SLIDING SCALE PRN PRN Reason: Mild Correctional Scale Labetalol HCl (Normodyne) 20 mg SLOW IVP Q4H PRN PRN Reason: SBP > 160, use third Lorazepam (Ativan) 2 mg SLOW IVP Q1H PRN PRN Reason: Breakthrough agitation Stop: 04/19/20 06:43 Last Admin: 03/22/20 16:20 Dose: 2 mg Miscellaneous Medication (Electrolyte Replacement Protocol) 0 each FS ASDIR PRN ; Protocol PRN Reason: ELECTROLYTE REPLACEMENT Morphine Sulfate (Morphine) 2 mg SLOW IVP Q1H PRN PRN Reason: Breakthrough Pain/Agitation Stop: 04/19/20 06:43 Discontinue Previous Narcotic Pain Medications And Benzodiazepines 1 each FS .ONE BRITTANIE Stop: 04/19/20 06:43 Ondansetron HCl (Zofran) 4 mg IVP Q6H PRN PRN Reason: Nausea/Vomiting, use 1st Propofol (Diprivan) 1,000 mg IV INF PRN; Protocol PRN Reason: TO ACHIEVE GOAL RASS Stop: 04/19/20 06:43 Last Admin: 03/23/20 02:09 Dose: 1,000 mg Propofol (Diprivan Bolus) 20 mg IV Q5MIN PRN PRN Reason: BREAKTHROUGH AGITATION Stop: 04/19/20 06:43 Vital Signs & Weight: Vital Signs Temp Pulse Resp BP Pulse Ox 03/23/20 08:41 58 L 03/23/20 07:19 22 H 99 03/23/20 07:00 99 F 03/23/20 04:00 98.7 F 03/23/20 02:16 63 133/75 03/23/20 02:00 17 03/23/20 00:51 61 16 99 Admit Weight 240 lb Weight 242 lb 6.4 oz - Physical Exam General: other (S/I) HEENT: normocephaly Neck: supple neck Cardiac: regular rate and rhythm Lungs: normal breath sounds Neuro: no lateralizing findings Abdomen: active bowel sounds Extremities: no edema Skin: clear Musculoskeletal: no pain - Labs Result Diagrams: 03/23/20 03:30 03/23/20 03:30 Troponin/CKMB CK-MB (CK-2) 6.5 ng/mL (0-6.6) 03/21/20 11:45 Troponin I 2.230 ng/mL (< 0.028) H* 03/21/20 11:45 - Telemetry Sinus rhythms and dysrhythmias: sinus rhythm - Assessment/Plan Assessment/Plan: 1. Acute hypoxic respiratory insufficiency, requiring mechanical ventilation. 2. Opiate and benzodiazepine overdose. 3. Prolonged QT, improving. 4. [id number] myocardial infarction. Likely type 2 demand type of ischemia. 5. Acute on chronic systolic versus diastolic heart failure. PLAN: - Continue supportive care. - QT improved on EKG today down to 480. - Normal LV function on echo.
[2020-03-23] MEDS: Lorazepam 2 MG/ML VIAL SLOW IVP PRN ×3 (15:09→22:22)
--- NOTE | 2020-03-23 15:24 | PRG ---
DATE OF SERVICE: 03/23/2020 SUBJECTIVE: Diallo Maradiaga still reliably follows commands. OBJECTIVE: VITAL SIGNS: Heart rate in the 60, blood pressure 131/77, respiratory rate in the teens. LUNGS: Remarkable for coarse equal breath sounds. HEART: Regular rhythm. ABDOMEN: Soft. EXTREMITIES: Without asymmetry. Intake and outputs, negative 1641. PH 7.46, pCO2 of 39, pO2 of 67. Still on 10 of PEEP. LABORATORY DATA: White count 12.5, hemoglobin 11.6, platelets 193. Sodium 144, potassium 3.9, chloride 105, bicarb 32, BUN 30, creatinine 0.82. IMPRESSION: Respiratory failure associated with multiple drug overdose. It is unclear whether or not, he has some sort of hypoxic injury from being down for prolonged period of time at home. I would not recommend extubation at this point. We could hold his sedation during EEG tomorrow if necessary. If he is not following commands off sedation, we could hopefully get a decent EEG tracing or briefly paralyzing with movement is an issue to see if we can get a reliable EEG tracing. He has diffuse seizures with severe slowing. This would argue that he had a component of anoxic injury and then proceeding to an early trach would be the next option. We will continue critical care management. Critical care time 30 minutes. Job ID: [id number]
--- NOTE | 2020-03-23 16:08 | EKG ---
Test Reason : Blood Pressure : / mmHG Vent. Rate : 060 BPM Atrial Rate : 060 BPM P-R Int : 162 ms QRS Dur : 102 ms QT Int : 486 ms P-R-T Axes : 023 009 163 degrees QTc Int : 486 ms Normal sinus rhythm Moderate voltage criteria for LVH, may be normal variant with repolarization abnormality Prolonged QT Abnormal ECG Confirmed by ANDREA WHALEN ([id number]) on 03/23/2020 4:08:25 PM Referred By: KRYSTIAN Confirmed By:ANDREA WHALEN
[2020-03-24] MEDS: Lorazepam 2 MG/ML VIAL SLOW IVP PRN ×10 (00:46→19:11)
[2020-03-24] MEDS: Piperacillin/Tazobactam 3.375 GM in Sodium Chloride 0.9% 100 ML IVPB SCH ×4 (01:32→19:41)
[2020-03-24] MEDS: Propofol 1,000 MG/100 ML VIAL IV PRN ×4 (01:33→22:32)
[2020-03-24 05:00] LABS: Hemoglobin 12.2 g/dL (14.0-18.0); Mean Corpuscular HGB CONC 32.7 g/dL (32.0-36.0); Mean Corpuscular Hemoglobin 29.7 pg (27.0-31.0); Mean Corpuscular Volume 90.9 fL (78.0-98.0); Mean Platelet Volume 9.4 fL (7.4-10.4); Platelet Count 198 thou/uL (130-400); RBC Distribution Width 12.6 % (11.5-14.5); Red Blood Cell (RBC) Count 4.13 mill/uL (4.70-6.10)
[2020-03-24 05:02] LABS: Anion Gap 12 mmol/L (10-20); BUN (Urea Nitrogen) 29 mg/dL (8.4-25.7); Calc. Creatinine Clearance 160 mL/min (70-130); Calcium 8.7 mg/dL (7.8-10.44); Carbon Dioxide 29 mmol/L (22-29); Chloride 108 mmol/L (98-107); Estimated GFR-MDRD Greater than 90; Glucose 108 mg/dL (70-105); Potassium 3.8 mmol/L (3.5-5.1); Sodium 145 mmol/L (136-145)
[2020-03-24 05:42] LABS: Band 6 % (5-11); Eosinophils 1 % (0-10); Lymphocytes 18 % (21-51); MDiff Complete? YES; Monocytes 8 % (0-10); Neutrophil 66 % (42-75); Platelet Morphology Comment Appears Adequate; Polychromasia SLIGHT = 2-3 cells (100X) (0-2/hpf); Reactive Lymphocytes 1 % (0-10)
[2020-03-24] MEDS: Furosemide 40 MG/4 ML VIAL SLOW IVP SCH (07:06)
[2020-03-24] MEDS: Famotidine/PF 20 mg/2ml Vial SLOW IVP SCH ×2 (07:07→19:41)
[2020-03-24] MEDS: Enoxaparin Sodium 40 MG/0.4 ML SYRINGE SC SCH (07:07)
[2020-03-24 07:47] LABS: Actual Bicarbonate (HCO3a) 27.2 mEq/L (22-28); CO2 Tension 36.1 mmHg (35.0-45.0); Calcium, Ionized (arterial) 1.19 mmol/L (1.12-1.30); Carboxyhemoglobin (COHb) 0.3 gm% (0.0-3.0); Hemoglobin (Hb) 13.4 g/dL (14.0-18.0); O2 Tension (PaO2), arterial 64.5 mmHg (80.0-100.0); Potassium - ABG Lab 3.73 mmol/L (3.70-5.30)
[2020-03-24 07:49] LABS: Puncture Site RRA
[2020-03-24 07:50] LABS: ALV-art Gradient 175.575 (0-20)
--- NOTE | 2020-03-24 07:55 | RAD ---
EXAM: Single view of the chest HISTORY: Ventilated patient with respiratory failure COMPARISON: 03/23/2020 FINDINGS: Single view of the chest shows a normal sized cardiomediastinal silhouette. The lines and tubes are unchanged in position. There may be small bilateral pleural effusions. The bones are unremarkable IMPRESSION: Possible small bilateral pleural effusions
--- NOTE | 2020-03-24 09:02 | PDOC.HOSPP ---
- Subjective Encounter Date: 03/24/20 Encounter Time: 09:01 Subjective: Mr. Mccallum was seen in follow-up for acute respiratory failure due to methadone overdose. He remains intubated. He is minimally responsive. No complaints voiced by staff. - Objective Vital Signs & Weight: Vital Signs (12 hours) Temp Pulse Resp BP Pulse Ox 03/24/20 07:49 62 136/68 03/24/20 07:48 62 21 H 98 03/24/20 06:55 16 100 03/24/20 06:52 99.3 F 03/24/20 06:00 18 03/24/20 04:00 99.6 F 19 03/24/20 02:00 61 15 129/70 03/24/20 00:00 98.9 F 17 03/23/20 23:58 61 114/74 03/23/20 22:00 18 03/23/20 21:59 88 161/83 H Weight Admit Weight 240 lb 3.2 oz Weight 242 lb 6.4 oz Most Recent Monitor Data Heart Rate from ECG 66 NIBP 118/58 NIBP BP-Mean 78 Respiration from ECG 21 SpO2 97 I&O: 03/23/20 03/24/20 03/25/20 06:59 06:59 06:59 Intake Total 944 1462 0 Output Total 2585 3275 750 Balance -1641 -1813 -750 Result Diagrams: 03/24/20 04:30 03/24/20 04:30 Additional Labs: Accuchecks 03/24/20 03/23/20 03/23/20 00:40 15:25 10:20 POC Glucose 112 H 131 H 135 H Hospitalist ROS - Medication Medications: Active Medications Generic Name Dose Route Start Last Admin Trade Name Freq PRN Reason Stop Dose Admin Albuterol/Ipratropium 3 ml 03/20/20 07:00 03/24/20 07:48 Duoneb NEB 3 ml [id number] BRITTANIE Administration Enoxaparin Sodium 40 mg 03/21/20 09:00 03/24/20 07:07 Lovenox SC 40 mg 0900 BRITTANIE Administration Famotidine 20 mg 03/20/20 21:00 03/24/20 07:07 Pepcid SLOW IVP 20 mg BID BRITTANIE Administration Furosemide 40 mg 03/21/20 09:00 03/24/20 07:06 Lasix SLOW IVP 40 mg DAILY BRITTANIE Administration Piperacillin Sod/Tazobactam 100 mls @ 200 mls/hr 03/20/20 14:00 03/24/20 07: 07 Sod 3.375 gm/ Sodium Chloride IVPB 100 mls 0200,0800,1400,2000 BRITTANIE Administration Dexmedetomidine HCl 400 mcg/ 100 mls @ 0 mls/hr 03/21/20 11:45 03/24/20 09:00 Sodium Chloride IVPB 100 mls INF BRITTANIE Administration Protocol Titrate Lorazepam 2 mg 03/20/20 06:43 03/24/20 07:07 Ativan SLOW IVP 04/19/20 06:43 2 mg Q1H PRN Administration Breakthrough agitation Propofol 1,000 mg 03/20/20 06:43 03/24/20 01:33 Diprivan IV 04/19/20 06:43 1,000 mg INF PRN Administration TO ACHIEVE GOAL RASS Protocol - Exam Eye: PERRL, anicteric sclera Heart: RRR, no murmur, no gallops, no rubs, normal peripheral pulses Respiratory: CTAB (+ coarse breath sounds) Gastrointestinal: soft, non-tender, non-distended, normal bowel sounds, no palpable masses Extremities: no cyanosis, no edema Hosp A/P (1) Acute respiratory failure with hypoxemia Code(s): J96.01 - ACUTE RESPIRATORY FAILURE WITH HYPOXIA Status: Acute (2) Aspiration pneumonia Code(s): J69.0 - PNEUMONITIS DUE TO INHALATION OF FOOD AND VOMIT Status: Acute (3) Methadone overdose Code(s): T40.3X1A - POISONING BY METHADONE, ACCIDENTAL (UNINTENTIONAL), INIT Status: Acute - Plan * Acute respiratory failure due to overdose on Methadone, and aspiration pneumonia. He continues to require vent support. * There is concern that he may have anoxic brain injury- plan is to reduce sedation and monitor the effects. * Aspiration pneumonia- continue Zosyn * Wean from the vent as per PCCM * Continue DVT and GI Prophyaxis * Nutritional support with tube feeding
[2020-03-24] MEDS: Haloperidol Lactate 5 MG/ML VIAL IM SCH ×3 (11:16→20:34)
[2020-03-24] MEDS ORDERED: Haloperidol Lactate 5 MG/ML VIAL IM SCH (12:00)
--- NOTE | 2020-03-24 15:50 | EKG ---
Test Reason : Blood Pressure : / mmHG Vent. Rate : 063 BPM Atrial Rate : 063 BPM P-R Int : 160 ms QRS Dur : 098 ms QT Int : 438 ms P-R-T Axes : 015 006 165 degrees QTc Int : 448 ms Normal sinus rhythm Moderate voltage criteria for LVH, may be normal variant Abnormal ECG Confirmed by ANDREA WHALEN ([id number]) on 03/24/2020 3:50:10 PM Referred By: KRYSTIAN Confirmed By:ANDREA WHALEN
--- NOTE | 2020-03-24 16:00 | PDOC.CPN ---
- Subjective Date: 03/24/20 Time: 15:59 Interval history: Remains sedated and intubated. - Review of Systems ROS unobtainable: due to endotracheal tube - Objective Allergies/Adverse Reactions: Allergies Allergy/AdvReac Type Severity Reaction Status Date / Time No Known Allergies Allergy Unverified 03/23/20 21:12 Visit Medications: Current Medications Albuterol/Ipratropium (Duoneb) 3 ml NEB [id number] [facility] Last Admin: 03/24/20 13:49 Dose: 3 ml Albuterol/Ipratropium (Duoneb) 3 ml NEB Q6H PRN PRN Reason: SOB &/or Wheezing Clonidine (Catapres) 0.1 mg PO BIDPRN PRN PRN Reason: SBP > 160, use second Enoxaparin Sodium (Lovenox) 40 mg SC 0900 [facility] Last Admin: 03/24/20 07:07 Dose: 40 mg Famotidine (Pepcid) 20 mg SLOW IVP BID [facility] Last Admin: 03/24/20 07:07 Dose: 20 mg Furosemide (Lasix) 40 mg SLOW IVP DAILY [facility] Last Admin: 03/24/20 07:06 Dose: 40 mg Haloperidol Lactate (Haldol) 10 mg IM Q4HR [facility] Last Admin: 03/24/20 11:16 Dose: 10 mg Hydralazine HCl (Apresoline) 10 mg SLOW IVP Q6H PRN PRN Reason: SBP GREATER THAN 160 Promethazine HCl 12.5 mg/ (Sodium Chloride) 50.5 mls @ 202 mls/hr IVPB Q6H PRN PRN Reason: Nausea/vomiting, use second Fentanyl Citrate 2,000 mcg/ (Sodium Chloride) 100 mls @ 0 mls/hr IV INF [facility]; Protocol Stop: 04/19/20 06:43 Fentanyl Citrate (Fentanyl Bolus) 250 mls @ 0 mls/hr IVPB PRN PRN PRN Reason: Breakthrough pain/agitation Stop: 04/19/20 06:43 Norepinephrine Bitartrate (Levophed) 250 mls @ 0 mls/hr IVPB PRN PRN; Protocol PRN Reason: To maintain MAP > 65 Vasopressin 20 unit/ Sodium (Chloride) 51 mls @ 6 mls/hr IV INF PRN PRN Reason: To maintain MAP > 65 Piperacillin Sod/Tazobactam (Sod 3.375 gm/ Sodium Chloride) 100 mls @ 200 mls/ hr IVPB 0200,0800,1400,2000 BRITTANIE Last Admin: 03/24/20 12:42 Dose: 100 mls Dexmedetomidine HCl 400 mcg/ (Sodium Chloride) 100 mls @ 0 mls/hr IVPB INF BRITTANIE ; Protocol Last Admin: 03/24/20 09:00 Dose: 100 mls Insulin Human Lispro (Humalog) 0 units SC .MILD SLIDING SCALE PRN PRN Reason: Mild Correctional Scale Labetalol HCl (Normodyne) 20 mg SLOW IVP Q4H PRN PRN Reason: SBP > 160, use third Lorazepam (Ativan) 2 mg SLOW IVP Q1H PRN PRN Reason: Breakthrough agitation Stop: 04/19/20 06:43 Last Admin: 03/24/20 14:25 Dose: 2 mg Lorazepam (Ativan) 1 mg SLOW IVP Q12HR BRITTANIE Miscellaneous Medication (Electrolyte Replacement Protocol) 0 each FS ASDIR PRN ; Protocol PRN Reason: ELECTROLYTE REPLACEMENT Morphine Sulfate (Morphine) 2 mg SLOW IVP Q1H PRN PRN Reason: Breakthrough Pain/Agitation Stop: 04/19/20 06:43 Discontinue Previous Narcotic Pain Medications And Benzodiazepines 1 each FS .ONE BRITTANIE Stop: 04/19/20 06:43 Ondansetron HCl (Zofran) 4 mg IVP Q6H PRN PRN Reason: Nausea/Vomiting, use 1st Propofol (Diprivan) 1,000 mg IV INF PRN; Protocol PRN Reason: TO ACHIEVE GOAL RASS Stop: 04/19/20 06:43 Last Admin: 03/24/20 14:25 Dose: 1,000 mg Propofol (Diprivan Bolus) 20 mg IV Q5MIN PRN PRN Reason: BREAKTHROUGH AGITATION Stop: 04/19/20 06:43 Vital Signs & Weight: Vital Signs Temp Pulse Resp BP Pulse Ox 03/24/20 14:53 99 F 03/24/20 13:49 65 03/24/20 10:29 70 134/69 03/24/20 10:07 70 134/69 03/24/20 07:49 62 136/68 03/24/20 07:48 62 21 H 98 03/24/20 06:55 16 100 03/24/20 06:52 99.3 F 03/24/20 06:00 18 03/24/20 04:00 99.6 F 19 Admit Weight 240 lb 3.2 oz Weight 242 lb 6.4 oz - Physical Exam General: other (S/I) HEENT: mucus membranes moist Neck: supple neck Cardiac: regular rate and rhythm Lungs: normal breath sounds Neuro: no lateralizing findings Abdomen: active bowel sounds Extremities: no edema Skin: clear Musculoskeletal: no fluid collection - Labs Result Diagrams: 03/24/20 04:30 03/24/20 04:30 Troponin/CKMB CK-MB (CK-2) 6.5 ng/mL (0-6.6) 03/21/20 11:45 Troponin I 2.230 ng/mL (< 0.028) H* 03/21/20 11:45 - Telemetry Sinus rhythms and dysrhythmias: sinus rhythm - Assessment/Plan Assessment/Plan: 1. Acute hypoxic respiratory insufficiency, requiring mechanical ventilation. 2. Opiate and benzodiazepine overdose. 3. Prolonged QT, improving. 4. [id number] myocardial infarction. Likely type 2 demand type of ischemia. 5. Acute on chronic systolic versus diastolic heart failure. PLAN: - Continue supportive care. - QT normalized on EKG today down to 430's. - Normal LV function on echo. - Will sign off. Please call with any questions.
--- NOTE | 2020-03-24 19:47 | PRG ---
DATE OF SERVICE: 03/24/2020 SUBJECTIVE: Diallo Maradiaga had a sedation holiday this morning. He had a prolonged period, but less than an hour where he has actually calm and cooperative, and he became very combative, extremely tachypneic and tachycardic. It was not felt to be [place] to extubate him. He did pass a leak test this morning. OBJECTIVE: LUNGS: Remarkable for coarse equal breath sounds. HEART: Regular rhythm. ABDOMEN: Soft. EXTREMITIES: Without edema. VITAL SIGNS: Blood pressure this afternoon is 135/73, heart rate 66, respiratory rates in the 20s. LABORATORY STUDIES: White count 12, hemoglobin 12.2, platelets 198. Sodium 145, potassium 3.8, chloride 108, bicarb 29, BUN 29, creatinine 0.84. PH 7.5, CO2 of 36, PO2 of 64. IMPRESSION: 1. Respiratory failure associated with opiate overdose. 2. ? Component of hypoxic brain injury. We will add Haldol and Ativan today and see if these help facilitate weaning. I do not feel comfortable extubating at this point. I think he will be so combative that we will not be able to control him and he will end up re-intubated. Critical care time, 30 minutes. Job ID: [id number]
[2020-03-24] MEDS: Lorazepam 2 MG/ML VIAL SLOW IVP SCH (20:35)
[2020-03-25] MEDS: Haloperidol Lactate 5 MG/ML VIAL IM SCH ×6 (00:16→20:13)
[2020-03-25] MEDS: Piperacillin/Tazobactam 3.375 GM in Sodium Chloride 0.9% 100 ML IVPB SCH ×4 (01:02→20:12)
[2020-03-25] MEDS: Lorazepam 2 MG/ML VIAL SLOW IVP PRN (02:47)
[2020-03-25] MEDS: Propofol 1,000 MG/100 ML VIAL IV PRN ×4 (03:15→20:18)
[2020-03-25 04:01] LABS: Anion Gap 11 mmol/L (10-20); BUN (Urea Nitrogen) 28 mg/dL (8.4-25.7); Calc. Creatinine Clearance 132 mL/min (70-130); Calcium 8.6 mg/dL (7.8-10.44); Carbon Dioxide 27 mmol/L (22-29); Chloride 109 mmol/L (98-107); Estimated GFR-MDRD 77; Glucose 94 mg/dL (70-105); Potassium 4.3 mmol/L (3.5-5.1); Sodium 143 mmol/L (136-145)
[2020-03-25 04:20] LABS: Band 5 % (5-11); Eosinophils 1 % (0-10); Hemoglobin 12.9 g/dL (14.0-18.0); Lymphocytes 24 % (21-51); MDiff Complete? YES; Mean Corpuscular HGB CONC 32.7 g/dL (32.0-36.0); Mean Corpuscular Hemoglobin 29.9 pg (27.0-31.0); Mean Corpuscular Volume 91.5 fL (78.0-98.0); Monocytes 9 % (0-10); Neutrophil 61 % (42-75); Platelet Count 214 thou/uL (130-400); RBC Distribution Width 13.2 % (11.5-14.5); Red Blood Cell (RBC) Count 4.32 mill/uL (4.70-6.10); White Blood Cell (WBC) Count 11.4 thou/uL (4.8-10.8)
[2020-03-25 07:23] LABS: Actual Bicarbonate (HCO3a) 23.2 mEq/L (22-28); CO2 Tension 33.4 mmHg (35.0-45.0); Calcium, Ionized (arterial) 1.18 mmol/L (1.12-1.30); Carboxyhemoglobin (COHb) 0.1 gm% (0.0-3.0); Hemoglobin (Hb) 13.7 g/dL (14.0-18.0); O2 Tension (PaO2), arterial 69.4 mmHg (80.0-100.0); Potassium - ABG Lab 4.29 mmol/L (3.70-5.30); pH, Arterial 7.46 (7.35-7.45)
[2020-03-25 07:28] LABS: Puncture Site RR
--- NOTE | 2020-03-25 08:01 | RAD ---
EXAM: CHEST ONE VIEW HISTORY: On ventilator. Follow-up evaluation. COMPARISON: 03/24/2020 FINDINGS: Endotracheal tube remains place with tip overlying the T1-2 level and well above the level of the car muna. Right internal jugular vein central venous catheter and nasogastric tube are also stable in position. Cardiac silhouette and bronchovascular markings are accentuated by the shallow depth inspir ation and portable technique. There is suggestion of increased pleural and parenchymal density at each lung base which may represent small bilateral pleural effusions and atelectasis. Superimposed in filtrates is a possibility. No other interval change. IMPRESSION: 1. Bibasilar pleural and parenchymal lung changes suggesting small bilateral pleural effusions and pr obable atelectasis. However, infiltrate/pneumonia in either lung base could not be excluded. 2. Lines and tubes stable in position. Tip of the endotracheal tube is again seen overlying the T1-2 level.
[2020-03-25] MEDS: Lorazepam 2 MG/ML VIAL SLOW IVP SCH ×2 (08:50→20:13)
[2020-03-25] MEDS: Furosemide 40 MG/4 ML VIAL SLOW IVP SCH (08:50)
[2020-03-25] MEDS: Enoxaparin Sodium 40 MG/0.4 ML SYRINGE SC SCH (08:50)
[2020-03-25] MEDS: Famotidine/PF 20 mg/2ml Vial SLOW IVP SCH ×2 (08:51→20:12)
--- NOTE | 2020-03-25 09:55 | PDOC.HOSPP ---
- Subjective Encounter Date: 03/25/20 Encounter Time: 09:53 Subjective: Mr. Maradiaga was seen today in follow-up of respiratory failure following drug overdose. He was given a sedation holiday yesterday and was awake and following some commands, but then became agitated. - Objective Vital Signs & Weight: Vital Signs (12 hours) Temp Pulse Resp BP 03/25/20 07:28 75 104/56 L 03/25/20 06:00 22 H 03/25/20 04:00 22 H 03/25/20 03:00 98.7 F 03/25/20 02:24 75 144/69 H 03/25/20 02:00 22 H 03/25/20 00:20 68 140/70 03/25/20 00:00 23 H 03/24/20 23:00 98.4 F 03/24/20 22:00 23 H 03/24/20 21:59 69 143/73 H Weight Admit Weight 240 lb 3.2 oz Weight 242 lb 6.4 oz Most Recent Monitor Data Heart Rate from ECG 69 NIBP 106/55 NIBP BP-Mean 72 Respiration from ECG 22 SpO2 97 I&O: 03/24/20 03/25/20 03/26/20 06:59 06:59 06:59 Intake Total 1462 1846 Output Total 3275 2315 100 [facility] -1813 -469 -100 Result Diagrams: 03/25/20 03:19 03/25/20 03:19 Additional Labs: Accuchecks 03/24/20 03/24/20 21:11 15:22 POC Glucose 91 98 Hospitalist ROS - Medication Medications: Active Medications Generic Name Dose Route Start Last Admin Trade Name Verito PRN Reason Stop Dose Admin Albuterol/Ipratropium 3 ml 03/20/20 07:00 03/25/20 07:03 Duoneb NEB 3 ml [id number] BRITTANIE Administration Enoxaparin Sodium 40 mg 03/21/20 09:00 03/25/20 08:50 Lovenox SC 40 mg 0900 BRITTANIE Administration Famotidine 20 mg 03/20/20 21:00 03/25/20 08:51 Pepcid SLOW IVP 20 mg BID BRITTANIE Administration Furosemide 40 mg 03/21/20 09:00 03/25/20 08:50 Lasix SLOW IVP 40 mg DAILY BRITTANIE Administration Haloperidol Lactate 10 mg 03/24/20 13:00 03/25/20 08:50 Haldol IM 10 mg Q4HR BRITTANIE Administration Piperacillin Sod/Tazobactam 100 mls @ 200 mls/hr 03/20/20 14:00 03/25/20 09: 00 Sod 3.375 gm/ Sodium Chloride IVPB 100 mls 0200,0800,1400,2000 BRITTANIE Administration Dexmedetomidine HCl 400 mcg/ 100 mls @ 0 mls/hr 03/21/20 11:45 03/25/20 04:56 Sodium Chloride IVPB 100 mls INF BRITTANIE Administration Protocol Titrate Lorazepam 2 mg 03/20/20 06:43 03/25/20 02:47 Ativan SLOW IVP 04/19/20 06:43 2 mg Q1H PRN Administration Breakthrough agitation Lorazepam 1 mg 03/24/20 21:00 03/25/20 08:50 Ativan SLOW IVP 1 mg Q12HR BRITTANIE Administration Propofol 1,000 mg 03/20/20 06:43 03/25/20 08:49 Diprivan IV 04/19/20 06:43 1,000 mg INF PRN Administration TO ACHIEVE GOAL RASS Protocol - Exam Eye: PERRL, anicteric sclera Heart: RRR, no murmur, no gallops, no rubs, normal peripheral pulses Respiratory: CTAB (+ with the exception of coasre breath sounds) Gastrointestinal: soft, non-tender, non-distended, normal bowel sounds, no palpable masses Extremities: no cyanosis, no edema Hosp A/P (1) Acute respiratory failure with hypoxemia Code(s): J96.01 - ACUTE RESPIRATORY FAILURE WITH HYPOXIA Status: Acute (2) Aspiration pneumonia Code(s): J69.0 - PNEUMONITIS DUE TO INHALATION OF FOOD AND VOMIT Status: Acute (3) Methadone overdose Code(s): T40.3X1A - POISONING BY METHADONE, ACCIDENTAL (UNINTENTIONAL), INIT Status: Acute - Plan * Acute respiratory failure due to overdose on Methadone, and aspiration pneumonia. * Plan is for trial of extubation today * Aspiration pneumonia- continue Zosyn * Continue DVT and GI Prophyaxis * Nutritional support with tube feeding
[2020-03-25] MEDS: Acetaminophen 650 MG/20.3 ML UDCUP PER TUBE PRN ×2 (11:57→18:17)
--- NOTE | 2020-03-25 11:58 | EKG ---
Test Reason : Blood Pressure : / mmHG Vent. Rate : 070 BPM Atrial Rate : 070 BPM P-R Int : 146 ms QRS Dur : 092 ms QT Int : 430 ms P-R-T Axes : 014 000 065 degrees QTc Int : 464 ms Normal sinus rhythm Possible Left atrial enlargement Moderate voltage criteria for LVH, may be normal variant Abnormal ECG Confirmed by ANDREA WHALEN ([id number]) on 03/25/2020 11:58:16 AM Referred By: KRYSTIAN Confirmed By:ANDREA WHALEN
--- NOTE | 2020-03-25 22:19 | PRG ---
DATE OF SERVICE: 03/25/2020 SUBJECTIVE: Diallo Maradiaga is still extremely encephalopathic and combative when his sedation is held. He is febrile today to 103. OBJECTIVE: LUNGS: Clear. HEART: Regular rhythm. ABDOMEN: Soft. EXTREMITIES: Without edema. LABORATORY DATA: Chest x-ray, hazy at both lung bases. White count 11.4, hemoglobin 12.9, platelets 214,000. There is only 5% bands on his peripheral smear. Electrolytes are normal. IMPRESSION: 1. Respiratory failure associated with multiple drug overdose. 2. Persistent encephalopathy. I doubt he has meningitis or encephalitis. I do not feel an LP is indicated. I do think it would be reasonable to get an EEG tomorrow with him all sedation and may be briefly with paralytics on board, so motion artifact will be eliminated. Do not think he has any evidence of a clear-cut pneumonia. He has no obvious abdominal source of fever. He is on DVT prophylaxis. It is unlikely that he has a DVT. He did have a temp of 103. His lines not hold. His bloods have been recultured. He is on Haldol, Precedex, propofol, p.r.n. lorazepam. He is on Zosyn. He does not have anything would lead me to believe that he has a methicillin-resistant Staph infection. We will just continue to await blood cultures and support him. CRITICAL CARE TIME: 30 minutes. Job ID: [id number]
[2020-03-26] MEDS: Propofol 1,000 MG/100 ML VIAL IV PRN ×5 (00:43→23:57)
[2020-03-26] MEDS: Haloperidol Lactate 5 MG/ML VIAL IM SCH ×6 (00:43→20:47)
[2020-03-26] MEDS: Piperacillin/Tazobactam 3.375 GM in Sodium Chloride 0.9% 100 ML IVPB SCH ×4 (01:13→20:49)
[2020-03-26 03:55] LABS: Band 11 % (5-11); Eosinophils 1 % (0-10); Hemoglobin 13.2 g/dL (14.0-18.0); Lymphocytes 25 % (21-51); MDiff Complete? YES; Mean Corpuscular HGB CONC 32.8 g/dL (32.0-36.0); Mean Corpuscular Hemoglobin 29.9 pg (27.0-31.0); Mean Corpuscular Volume 91.3 fL (78.0-98.0); Mean Platelet Volume 9.3 fL (7.4-10.4); Monocytes 2 % (0-10); Neutrophil 61 % (42-75); Platelet Count 198 thou/uL (130-400); White Blood Cell (WBC) Count 13.2 thou/uL (4.8-10.8)
[2020-03-26 03:58] LABS: Anion Gap 11 mmol/L (10-20); BUN (Urea Nitrogen) 36 mg/dL (8.4-25.7); Calc. Creatinine Clearance 114 mL/min (70-130); Calcium 8.8 mg/dL (7.8-10.44); Carbon Dioxide 27 mmol/L (22-29); Chloride 108 mmol/L (98-107); Estimated GFR-MDRD 65; Glucose 107 mg/dL (70-105); Potassium 3.9 mmol/L (3.5-5.1); Sodium 142 mmol/L (136-145)
[2020-03-26] MEDS: Acetaminophen 650 MG/20.3 ML UDCUP PER TUBE PRN (04:23)
[2020-03-26 06:31] LABS: Actual Bicarbonate (HCO3a) 23.2 mEq/L (22-28); Analyzer IN Cardio ER; Base Excess (BEa) 0.1 mEq/L (-2.0 to +3.0); CO2 Tension 33.4 mmHg (35.0-45.0); Calcium, Ionized (arterial) 1.15 mmol/L (1.12-1.30); Carboxyhemoglobin (COHb) 0.1 gm% (0.0-3.0); Hemoglobin (Hb) 13.8 g/dL (14.0-18.0); O2 Tension (PaO2), arterial 63.7 mmHg (80.0-100.0); pH, Arterial 7.46 (7.35-7.45)
[2020-03-26 06:36] LABS: Puncture Site RRA
--- NOTE | 2020-03-26 07:55 | RAD ---
EXAM: Single view of the chest HISTORY: Ventilated patient with respiratory failure COMPARISON: 03/25/2020 FINDINGS: Single view of the chest shows a normal sized cardiomediastinal silhouette. The lines and tubes are unchanged in position. Bibasilar atelectasis versus infiltrates are seen. The bones are unremarkable IMPRESSION: Stable exam
[2020-03-26] MEDS ORDERED: Vecuronium 10 MG VIAL ONE (08:19)
[2020-03-26] MEDS: Vecuronium 10 MG VIAL IVP PRN ×3 (08:20→10:05)
[2020-03-26] MEDS: Famotidine/PF 20 mg/2ml Vial SLOW IVP SCH ×2 (09:10→20:47)
[2020-03-26] MEDS: Enoxaparin Sodium 40 MG/0.4 ML SYRINGE SC SCH ×2 (09:10→09:11)
[2020-03-26] MEDS: Furosemide 40 MG/4 ML VIAL SLOW IVP SCH (09:12)
[2020-03-26] MEDS: Lorazepam 2 MG/ML VIAL SLOW IVP SCH ×2 (09:12→20:48)
--- NOTE | 2020-03-26 09:57 | PDOC.HOSPP ---
- Subjective Encounter Date: 03/26/20 Encounter Time: 09:55 Subjective: Mr. Maradiaga was seen today in follow-up of respiratory failure. He is currently intubated. He is getting an EEG done now. - Objective Vital Signs & Weight: Vital Signs (12 hours) Temp Pulse Resp BP Pulse Ox 03/26/20 07:31 75 116/61 03/26/20 06:00 23 H 03/26/20 04:00 101.6 F H 25 H 03/26/20 02:44 73 111/64 03/26/20 02:00 24 H 03/26/20 00:06 73 114/64 03/26/20 00:04 73 23 H 96 03/26/20 00:00 103.1 F H 24 H 03/25/20 23:09 71 104/60 03/25/20 22:00 24 H Weight Admit Weight 240 lb 3.2 oz Weight 242 lb 4.255 oz Most Recent Monitor Data Heart Rate from ECG 72 NIBP 116/61 NIBP BP-Mean 79 Respiration from ECG 28 SpO2 94 I&O: 03/25/20 03/26/20 03/27/20 06:59 06:59 06:59 Intake Total 1846 1847 Output Total 4663 6926 Balance -009 -058 Result Diagrams: 03/26/20 03:00 03/26/20 03:00 Additional Labs: Accuchecks 03/26/20 03/25/20 03/25/20 04:10 22:17 18:13 POC Glucose 100 117 H 115 H Hospitalist ROS - Medication Medications: Active Medications Generic Name Dose Route Start Last Admin Trade Name Verito PRN Reason Stop Dose Admin Acetaminophen 650 mg 03/25/20 11:20 03/26/20 04:23 Tylenol Elixir PER TUBE 650 mg Q6H PRN Administration Fever > 101 Albuterol/Ipratropium 3 ml 03/20/20 07:00 03/26/20 07:31 Duoneb NEB 3 ml [id number] BRITTANIE Administration Enoxaparin Sodium 40 mg 03/21/20 09:00 03/26/20 09:11 Lovenox SC 40 mg 0900 BRITTANIE Administration Famotidine 20 mg 03/20/20 21:00 03/26/20 09:10 Pepcid SLOW IVP 20 mg BID BRITTANIE Administration Furosemide 40 mg 03/21/20 09:00 03/26/20 09:12 Lasix SLOW IVP 40 mg DAILY BRITTANIE Administration Haloperidol Lactate 10 mg 03/24/20 13:00 03/26/20 09:12 Haldol IM Not Given Q4HR BRITTANIE Piperacillin Sod/Tazobactam 100 mls @ 200 mls/hr 03/20/20 14:00 03/26/20 09: 11 Sod 3.375 gm/ Sodium Chloride IVPB 100 mls 0200,0800,1400,2000 BRITTANIE Administration Dexmedetomidine HCl 400 mcg/ 100 mls @ 0 mls/hr 03/21/20 11:45 03/26/20 03:08 Sodium Chloride IVPB 100 mls INF BRITTANIE Administration Protocol Titrate Lorazepam 2 mg 03/20/20 06:43 03/25/20 02:47 Ativan SLOW IVP 04/19/20 06:43 2 mg Q1H PRN Administration Breakthrough agitation Lorazepam 1 mg 03/24/20 21:00 03/26/20 09:12 Ativan SLOW IVP Not Given Q12HR BRITTANIE Propofol 1,000 mg 03/20/20 06:43 03/26/20 06:12 Diprivan IV 04/19/20 06:43 1,000 mg INF PRN Administration TO ACHIEVE GOAL RASS Protocol Vecuronium [place] 10 mg 03/26/20 08:27 03/26/20 08:50 Norcuron IVP 10 mg Q30MIN PRN Administration Agitation - Exam Eye: PERRL, anicteric sclera Heart: RRR, no murmur, no gallops, no rubs, normal peripheral pulses Respiratory: CTAB, no wheezes, no rales, normal chest expansion Gastrointestinal: soft, non-tender, non-distended, normal bowel sounds, no palpable masses Extremities: no cyanosis, no edema Hosp A/P (1) Acute respiratory failure with hypoxemia Code(s): J96.01 - ACUTE RESPIRATORY FAILURE WITH HYPOXIA Status: Acute (2) Aspiration pneumonia Code(s): J69.0 - PNEUMONITIS DUE TO INHALATION OF FOOD AND VOMIT Status: Acute (3) Methadone overdose Code(s): T40.3X1A - POISONING BY METHADONE, ACCIDENTAL (UNINTENTIONAL), INIT Status: Acute - Plan * Acute respiratory failure due to overdose on Methadone, and aspiration pneumonia. * He is undergoing EEG * Possible Aspiration pneumonia- continue Zosyn * Continue DVT and GI Prophyaxis * Nutritional support with tube feeding
[2020-03-26] MEDS: Metoclopramide HCl 10 MG/2 ML VIAL IVP SCH ×2 (13:45→20:54)
--- NOTE | 2020-03-26 14:10 | EEG ---
DATE OF SERVICE: 03/26/2020 ATTENDING PHYSICIAN: Laurie Rogers MD This EEG was performed using 24-channel [employer] video digital EEG machine with 24-disk electrodes. This was an extended 2 hours 5 minutes of inpatient video EEG recording. Digital analysis of the EEG was done for spike and seizure detection, which revealed no abnormalities. BACKGROUND: There is a nonsustained posterior background rhythm with 6 to 7 Hz. Minimal reactivity is seen with eye opening and closure. HYPERVENTILATION: Not performed. PHOTIC STIMULATION: No significant response seen with photic stimulation. SLEEP: No stage change was observed. EEG DIAGNOSES: 1. Intermittent irregular theta activity seen throughout the recording. 2. Nonsustained slow posterior background rhythm. CLINICAL INTERPRETATION: This EEG is consistent with moderate generalized nonspecific cerebral dysfunction. No ictal or interictal epileptiform abnormalities seen during the recording. Job ID: [id number]
--- NOTE | 2020-03-26 16:17 | EKG ---
Test Reason : Blood Pressure : / mmHG Vent. Rate : 079 BPM Atrial Rate : 079 BPM P-R Int : 150 ms QRS Dur : 092 ms QT Int : 450 ms P-R-T Axes : 015 -01 082 degrees QTc Int : 516 ms Sinus rhythm with Premature atrial complexes Voltage criteria for left ventricular hypertrophy Prolonged QT Abnormal ECG Confirmed by ANDREA WHALEN ([id number]) on 03/26/2020 4:17:17 PM Referred By: KRYSTIAN Confirmed By:ANDREA WHALEN
--- NOTE | 2020-03-26 21:59 | PRG ---
DATE OF SERVICE: 03/26/2020 SUBJECTIVE: Diallo Maradiaga had his EEG today, who chemically paralyzed and turned off sedation, so we can see what his background rhythm was. His findings were nonspecific. He did not have any epileptiform discharges. He did not have severe slowing. sedation was restarted. When his sedation is held, he would not follow commands. OBJECTIVE: LUNGS: Unchanged. HEART: Unchanged. ABDOMEN: Unchanged. LABORATORY DATA: White count 13.2, hemoglobin 13.2 platelets 198. Electrolytes are unremarkable. BUN 36 and creatinine 1.18. IMPRESSION: 1. Respiratory failure associated with drug overdose. 2. Persistent encephalopathy. He is not better over the weekend. He needs a trach early next week. Critical care time 30 min. Job ID: [id number] MTDD
[2020-03-27] MEDS: Piperacillin/Tazobactam 3.375 GM in Sodium Chloride 0.9% 100 ML IVPB SCH (01:46)
[2020-03-27] MEDS: Haloperidol Lactate 5 MG/ML VIAL IM SCH ×2 (01:46→04:34)
[2020-03-27] MEDS: Metoclopramide HCl 10 MG/2 ML VIAL IVP SCH ×4 (01:46→20:30)
[2020-03-27 04:00] LABS: Anion Gap 11 mmol/L (10-20); BUN (Urea Nitrogen) 42 mg/dL (8.4-25.7); Calc. Creatinine Clearance 113 mL/min (70-130); Calcium 8.8 mg/dL (7.8-10.44); Carbon Dioxide 27 mmol/L (22-29); Chloride 109 mmol/L (98-107); Estimated GFR-MDRD 64; Glucose 125 mg/dL (70-105); Potassium 3.9 mmol/L (3.5-5.1); Sodium 143 mmol/L (136-145)
[2020-03-27 04:33] LABS: Band 3 % (5-11); Eosinophils 1 % (0-10); Hypochromia SLIGHT = 6-15 cells (100X) (0-5/hpf); Lymphocytes 12 % (21-51); MDiff Complete? YES; Mean Corpuscular HGB CONC 33.1 g/dL (32.0-36.0); Mean Corpuscular Hemoglobin 30.3 pg (27.0-31.0); Mean Corpuscular Volume 91.4 fL (78.0-98.0); Mean Platelet Volume 9.6 fL (7.4-10.4); Monocytes 9 % (0-10); Neutrophil 74 % (42-75); Platelet Count 165 thou/uL (130-400); Platelet Morphology Comment Appears Adequate; RBC Distribution Width 12.8 % (11.5-14.5); Reactive Lymphocytes 1 % (0-10); Red Blood Cell (RBC) Count 4.29 mill/uL (4.70-6.10); White Blood Cell (WBC) Count 12.9 thou/uL (4.8-10.8)
[2020-03-27] MEDS: Propofol 1,000 MG/100 ML VIAL IV PRN ×3 (04:34→23:49)
[2020-03-27] MEDS: Acetaminophen 650 MG/20.3 ML UDCUP PER TUBE PRN ×2 (05:34→10:56)
[2020-03-27] MEDS ORDERED: Meropenem 2 GM, Admixture Fee 1 EACH in Sodium Chloride 0.9% 100 ML IVPB SCH ×2 (06:45→14:00)
[2020-03-27 06:58] LABS: Actual Bicarbonate (HCO3a) 23.3 mEq/L (22-28); Analyzer IN Cardio ER; Base Excess (BEa) 1.1 mEq/L (-2.0 to +3.0); CO2 Tension 30.4 mmHg (35.0-45.0); Calcium, Ionized (arterial) 1.15 mmol/L (1.12-1.30); Carboxyhemoglobin (COHb) 0.3 gm% (0.0-3.0); Hemoglobin (Hb) 13.8 g/dL (14.0-18.0); Potassium - ABG Lab 3.82 mmol/L (3.70-5.30)
--- NOTE | 2020-03-27 07:51 | RAD ---
EXAM: Single view of the chest HISTORY: Ventilated patient with respiratory failure COMPARISON: 03/26/2020 FINDINGS: Single view of the chest shows a normal sized cardiomediastinal silhouette. The lines and tubes are unchanged in position. Bibasilar atelectasis is seen. The bones are unremarkable IMPRESSION: Stable exam
[2020-03-27 08:04] LABS: Puncture Site RRAD
[2020-03-27] MEDS: Furosemide 40 MG/4 ML VIAL SLOW IVP SCH (08:48)
[2020-03-27] MEDS: Lorazepam 2 MG/ML VIAL SLOW IVP SCH ×2 (08:49→20:31)
[2020-03-27] MEDS: Famotidine/PF 20 mg/2ml Vial SLOW IVP SCH ×2 (08:49→20:30)
[2020-03-27] MEDS: Meropenem 2 GM, Admixture Fee 1 EACH in Sodium Chloride 0.9% 100 ML IVPB SCH ×2 (09:48→17:38)
--- NOTE | 2020-03-27 09:51 | PRG ---
DATE OF SERVICE: 03/27/2020 SUBJECTIVE: Mr. Maradiaga still does not follow commands. He gets agitated. Sedation is held. He is still febrile. He was switched to meropenem, and vancomycin will be added. His cultures remain negative. . I suppose he could have a retrocardiac infiltrate or an infiltrate behind his diaphragm that was not seen easily on his chest x-ray. OBJECTIVE: LUNGS: Remarkable for coarse equal breath sounds. HEART: Regular rhythm. ABDOMEN: Soft. EXTREMITIES: Without edema. LABORATORY DATA: White count 12.9, hemoglobin 13.0, and platelets 165. He only has 3% bands on his peripheral smear. Sodium 143, potassium 3.9, chloride 109, bicarbonate 27, BUN 42, creatinine 1.19. The pH 7.5, pCO2 of 30, and pO2 of 77. IMPRESSION AND PLAN: 1. Status post intubation after methadone overdose. 2. Probable hypoxic encephalopathy. There, he never arrested from what I can tell from the records. 3. If he does not have normalization of his mental status and can not follow commands by the end of this weekend, I would recommend early tracheostomy early next week. I doubt he will be weanable this weekend. 4. Other issues include a prolonged QT interval and non ST-elevation myocardial infarction. It was felt to be demand ischemia and diastolic heart failure. 5. Chest x-ray was unchanged today. He has bibasilar haziness. Again as mentioned, his antimicrobial therapy was changed. Critical care time 30 min. Job ID: [id number] MTDD
--- NOTE | 2020-03-27 10:56 | PDOC.HOSPP ---
- Subjective Encounter Date: 03/27/20 Encounter Time: 10:54 Subjective: Mr. Maradiaga was seen today in follow-up of metabolic encephalopathy and respiratory failure due to methadone overdose. He is still encephalopathic. He remains intubated. - Objective Vital Signs & Weight: Vital Signs (12 hours) Temp Pulse Resp BP Pulse Ox 03/27/20 08:05 103 H 03/27/20 08:00 102.3 F H 25 H 03/27/20 07:00 101.7 F H 03/27/20 06:38 76 25 H 98 03/27/20 06:00 25 H 03/27/20 04:00 102.0 F H 30 H 03/27/20 02:55 80 112/54 L 03/27/20 02:00 26 H 03/27/20 01:08 72 27 H 96 03/27/20 00:00 99.7 F H 27 H Weight Admit Weight 240 lb 3.2 oz Weight 218 lb 4.122 oz Most Recent Monitor Data Heart Rate from ECG 92 NIBP 122/63 NIBP BP-Mean 82 Respiration from ECG 34 SpO2 99 I&O: 03/26/20 03/27/20 03/28/20 06:59 06:59 06:59 Intake Total 1847 909.4 40 Output Total 2690 2008 175 Balance -843 -1098.6 -135 Result Diagrams: 03/27/20 03:22 03/27/20 03:22 Additional Labs: Accuchecks 03/27/20 03/26/20 00:05 18:32 POC Glucose 115 H 119 H Hospitalist ROS - Medication Medications: Active Medications Generic Name Dose Route Start Last Admin Trade Name Verito PRN Reason Stop Dose Admin Acetaminophen 650 mg 03/25/20 11:20 03/27/20 05:34 Tylenol Elixir PER TUBE 650 mg Q6H PRN Administration Fever > 101 Albuterol/Ipratropium 3 ml 03/20/20 07:00 03/27/20 06:38 Duoneb NEB 3 ml [id number] BRITTANIE Administration Enoxaparin Sodium 40 mg 03/21/20 09:00 03/26/20 09:11 Lovenox SC 40 mg 0900 BRITTANIE Administration Famotidine 20 mg 03/20/20 21:00 03/27/20 08:49 Pepcid SLOW IVP 20 mg BID BRITTANIE Administration Furosemide 40 mg 03/21/20 09:00 03/27/20 08:48 Lasix SLOW IVP 40 mg DAILY BRITTANIE Administration Dexmedetomidine HCl 400 mcg/ 100 mls @ 0 mls/hr 03/21/20 11:45 03/27/20 04:34 Sodium Chloride IVPB 100 mls INF BRITTANIE Administration Protocol Titrate Vancomycin HCl 2 gm/ Sodium 500 mls @ 250 mls/hr 03/27/20 09:00 03/27/20 10: 32 Chloride IV 03/27/20 11:00 500 mls NOW BRITTANIE Administration Meropenem 2 gm/ Miscellaneous 100 mls @ 200 mls/hr 03/27/20 09:00 03/27/20 09 :48 Medication 1 each/ Sodium IVPB 100 mls Chloride Q8H BRITTANIE Administration Lorazepam 2 mg 03/20/20 06:43 03/25/20 02:47 Ativan SLOW IVP 04/19/20 06:43 2 mg Q1H PRN Administration Breakthrough agitation Lorazepam 1 mg 03/24/20 21:00 03/27/20 08:49 Ativan SLOW IVP Not Given Q12HR BRITTANIE Metoclopramide HCl 10 mg 03/26/20 14:00 03/27/20 08:47 Reglan IVP 10 mg 0200,0800,1400,2000 BRITTANIE Administration Propofol 1,000 mg 03/20/20 06:43 03/27/20 09:48 Diprivan IV 04/19/20 06:43 1,000 mg INF PRN Administration TO ACHIEVE GOAL RASS Protocol Vecuronium [place] 10 mg 03/26/20 08:27 03/26/20 10:05 Norcuron IVP 10 mg Q30MIN PRN Administration Agitation - Exam Eye: PERRL, anicteric sclera Heart: RRR, no murmur, no gallops, no rubs, normal peripheral pulses Respiratory: CTAB (+ coarse breath sounds) Gastrointestinal: soft, non-tender, non-distended, normal bowel sounds, no palpable masses, no hepatomegaly Extremities: no cyanosis, no clubbing, no edema Hosp A/P (1) Acute respiratory failure with hypoxemia Code(s): J96.01 - ACUTE RESPIRATORY FAILURE WITH HYPOXIA Status: Acute (2) Aspiration pneumonia Code(s): J69.0 - PNEUMONITIS DUE TO INHALATION OF FOOD AND VOMIT Status: Acute (3) Methadone overdose Code(s): T40.3X1A - POISONING BY METHADONE, ACCIDENTAL (UNINTENTIONAL), INIT Status: Acute - Plan * Acute respiratory failure due to overdose on Methadone, and aspiration pneumonia. * EEG results noted * Possible Aspiration pneumonia- continue Zosyn * Continue DVT and GI Prophyaxis * Nutritional support with tube feeding * Continue supportive care as per PCCM
[2020-03-27] MEDS: Haloperidol Lactate 5 MG/ML VIAL IM PRN (14:21)
[2020-03-27] MEDS: Lorazepam 2 MG/ML VIAL SLOW IVP PRN (14:22)
[2020-03-27] MEDS: Vancomycin 1.5 GRAM/300 ML BAG 1.5 GM in Premix Bag 1 BAG IVPB SCH (20:32)
[2020-03-28] MEDS: Metoclopramide HCl 10 MG/2 ML VIAL IVP SCH ×4 (01:11→20:39)
[2020-03-28] MEDS: Meropenem 2 GM, Admixture Fee 1 EACH in Sodium Chloride 0.9% 100 ML IVPB SCH ×3 (01:11→18:19)
[2020-03-28 04:53] LABS: Band 2 % (5-11); Eosinophils 1 % (0-10); Hemoglobin 12.4 g/dL (14.0-18.0); Lymphocytes 8 % (21-51); MDiff Complete? YES; Mean Corpuscular HGB CONC 32.4 g/dL (32.0-36.0); Mean Corpuscular Hemoglobin 29.9 pg (27.0-31.0); Mean Corpuscular Volume 92.3 fL (78.0-98.0); Monocytes 2 % (0-10); Neutrophil 87 % (42-75); Platelet Count 168 thou/uL (130-400); Platelet Morphology Comment Appears Adequate; RBC Morphology Normal; Red Blood Cell (RBC) Count 4.16 mill/uL (4.70-6.10); White Blood Cell (WBC) Count 12.7 thou/uL (4.8-10.8)
[2020-03-28 05:05] LABS: Anion Gap 13 mmol/L (10-20); BUN (Urea Nitrogen) 41 mg/dL (8.4-25.7); Calc. Creatinine Clearance 120 mL/min (70-130); Calcium 8.8 mg/dL (7.8-10.44); Carbon Dioxide 27 mmol/L (22-29); Chloride 111 mmol/L (98-107); Estimated GFR-MDRD 78; Glucose 117 mg/dL (70-105); Potassium 3.4 mmol/L (3.5-5.1); Sodium 148 mmol/L (136-145)
[2020-03-28] MEDS: Propofol 1,000 MG/100 ML VIAL IV PRN ×3 (05:17→20:51)
[2020-03-28] MEDS: Lorazepam 2 MG/ML VIAL SLOW IVP PRN ×2 (05:51→20:40)
[2020-03-28] MEDS ORDERED: Potassium Chloride 40 MEQ in Sodium Chloride 0.9% 250 ML 250 ML IV SCH (06:30)
[2020-03-28 07:30] LABS: Actual Bicarbonate (HCO3a) 23.5 mEq/L (22-28); Base Excess (BEa) -0.1 mEq/L (-2.0 to +3.0); CO2 Tension 35.3 mmHg (35.0-45.0); Calcium, Ionized (arterial) 1.19 mmol/L (1.12-1.30); Carboxyhemoglobin (COHb) 0.2 gm% (0.0-3.0); O2 Tension (PaO2), arterial 76.6 mmHg (80.0-100.0); Potassium - ABG Lab 3.39 mmol/L (3.70-5.30); pH, Arterial 7.44 (7.35-7.45)
[2020-03-28 07:44] LABS: ALV-art Gradient 164.475 (0-20); Puncture Site RBRACH
--- NOTE | 2020-03-28 08:17 | RAD ---
Chest one view HISTORY: Ventilated. Dyspnea. COMPARISON: 03/27/2020. Findings cardiac silhouette remains magnified by projection. Subtle patchy bibasilar infiltrates obsc ure the diaphragm. Pulmonary vasculature is within normal limits. Mediastinum is midline. Lines and tubes are unchanged in position. No evidence of pneumothorax. IMPRESSION : Patchy bibasilar infiltrates and other findings are stable.
[2020-03-28] MEDS: Enoxaparin Sodium 40 MG/0.4 ML SYRINGE SC SCH (09:22)
[2020-03-28] MEDS: Vancomycin 1.5 GRAM/300 ML BAG 1.5 GM in Premix Bag 1 BAG IVPB SCH ×2 (09:23→20:41)
[2020-03-28] MEDS: Lorazepam 2 MG/ML VIAL SLOW IVP SCH ×2 (09:24→20:41)
[2020-03-28] MEDS: Furosemide 40 MG/4 ML VIAL SLOW IVP SCH (09:24)
[2020-03-28] MEDS: Famotidine/PF 20 mg/2ml Vial SLOW IVP SCH ×2 (09:24→20:39)
--- NOTE | 2020-03-28 13:15 | PDOC.HOSPP ---
- Subjective Encounter Date: 03/28/20 Encounter Time: 11:40 Subjective: COVID the patient -- seen at the distance on vent. On vancomycin and Merrem - Objective Vital Signs & Weight: Vital Signs (12 hours) Temp Pulse Resp BP 03/28/20 12:00 98.5 F 23 H 03/28/20 10:44 66 03/28/20 10:00 24 H 03/28/20 08:00 98.3 F 21 H 03/28/20 07:45 69 03/28/20 06:00 21 H 03/28/20 04:00 98.2 F 24 H 03/28/20 02:24 64 116/71 03/28/20 02:00 20 Weight Admit Weight 240 lb 3.2 oz Weight 216 lb 7.903 oz Most Recent Monitor Data Heart Rate from ECG 70 NIBP 128/73 NIBP BP-Mean 91 Respiration from ECG 26 SpO2 98 I&O: 03/27/20 03/28/20 03/29/20 06:59 06:59 06:59 Intake Total 909.4 1840.0 430 Output Total 2007 2205 670 Balance -1098.6 -365.0 -240 Result Diagrams: 03/28/20 03:30 03/28/20 03:30 Additional Labs: Accuchecks 03/28/20 03/28/20 03/27/20 05:51 00:05 17:58 POC Glucose 135 H 127 H 111 H Hospitalist ROS - Medication Medications: Active Medications Generic Name Dose Route Start Last Admin Trade Name Freq PRN Reason Stop Dose Admin Acetaminophen 650 mg 03/25/20 11:20 03/27/20 10:56 Tylenol Elixir PER TUBE 650 mg Q6H PRN Administration Fever > 101 Albuterol/Ipratropium 3 ml 03/20/20 07:00 03/28/20 12:29 Duoneb NEB 3 ml [id number] BRITTANIE Administration Enoxaparin Sodium 40 mg 03/21/20 09:00 03/28/20 09:22 Lovenox SC 40 mg 0900 BRITTANIE Administration Famotidine 20 mg 03/20/20 21:00 03/28/20 09:24 Pepcid SLOW IVP 20 mg BID BRITTANIE Administration Furosemide 40 mg 03/21/20 09:00 03/28/20 09:24 Lasix SLOW IVP 40 mg DAILY BRITTANIE Administration Haloperidol Lactate 10 mg 03/27/20 08:45 03/27/20 14:21 Haldol IM 10 mg Q4H PRN Administration Severe Agitation Dexmedetomidine HCl 400 mcg/ 100 mls @ 0 mls/hr 03/21/20 11:45 03/28/20 09:19 Sodium Chloride IVPB 100 mls INF BRITTANIE Administration Protocol Titrate Vancomycin HCl 1.5 gm/ Device 300 mls @ 200 mls/hr 03/27/20 21:00 03/28/20 09 :23 IVPB 300 mls 0900,2100 BRITTANIE Administration Meropenem 2 gm/ Miscellaneous 100 mls @ 200 mls/hr 03/27/20 09:00 03/28/20 09 :25 Medication 1 each/ Sodium IVPB 100 mls Chloride Q8H BRITTANIE Administration Lorazepam 2 mg 03/20/20 06:43 03/28/20 05:51 Ativan SLOW IVP 04/19/20 06:43 2 mg Q1H PRN Administration Breakthrough agitation Lorazepam 1 mg 03/24/20 21:00 03/28/20 09:24 Ativan SLOW IVP 1 mg Q12HR BRITTANIE Administration Metoclopramide HCl 10 mg 03/26/20 14:00 03/28/20 09:27 Reglan IVP 10 mg 0200,0800,1400,2000 BRITTANIE Administration Propofol 1,000 mg 03/20/20 06:43 03/28/20 05:17 Diprivan IV 04/19/20 06:43 1,000 mg INF PRN Administration TO ACHIEVE GOAL RASS Protocol Sodium Chloride 10 ml 03/28/20 09:00 03/28/20 09:25 Flush - Normal Saline IVF 10 ml Q12HR BRITTANIE Administration Vecuronium [place] 10 mg 03/26/20 08:27 03/26/20 10:05 Norcuron IVP 10 mg Q30MIN PRN Administration Agitation Hosp A/P - Plan (1) Acute respiratory failure with hypoxemia -Due to methadone overdose Hypoxic encephalopathy Metabolic encephalopathy due to drug overdose (2) Aspiration pneumonia Code(s): J69.0 - PNEUMONITIS DUE TO INHALATION OF FOOD AND VOMIT Status: Acute (3) Methadone overdose Code(s): T40.3X1A - POISONING BY METHADONE, ACCIDENTAL (UNINTENTIONAL), INIT Status: Acute - Plan * Acute respiratory failure due to overdose on Methadone, and aspiration pneumonia. * EEG results noted " Intermittent irregular theta activity and nonsustained slow posterior background rhythm Suggesting nonspecific cerebral dysfunction no epileptiform abnormalities during the recording. * Possible Aspiration pneumonia- on meropenem and Vanco currently * * Nutritional support with tube feeding * Continue supportive care as per PCCM * * Continue DVT and GI Prophyaxis * * Full code
--- NOTE | 2020-03-28 14:24 | PRG ---
DATE OF SERVICE: 03/28/2020 SUBJECTIVE: There has been no significant change in his neurologic status. He does not follow commands. He does become somewhat restless when agitation is reduced. We have successfully reduced his rate to 5 and I will start CPAP trials today. The patient unfortunately has persistence of his underlying encephalopathy. He had been found unresponsive and the duration of this is unknown. It is quite possible that he has suffered a profound hypoxic brain injury. PHYSICAL EXAMINATION: VITAL SIGNS: Blood pressure 124/66, heart rate 71, saturation 98%. He is afebrile with temperature 98.5. GENERAL: He is intubated, but not responsive. Eyes do not track, although they are open. He does and does have decent spontaneous efforts. He also has cough with suctioning. LUNGS: Show rhonchi, but no wheezing. HEART: Regular rate and rhythm. ABDOMEN: Obese, soft. There is no guarding or rebound. EXTREMITIES: Without cyanosis. He has 1+ edema. LABORATORY DATA: White count 12,700, hemoglobin is 12.4, platelet count 168,000. Blood gas includes pH 7.44, pCO2 is 35, pO2 is 76, bicarbonate 24. Electrolytes include sodium 148, potassium 3.4, chloride 111, CO2 is 27, BUN 41, creatinine 1. Chest x-ray has shown patchy bibasilar consolidation. His COVID test has been negative. IMPRESSION: 1. Altered mental status, presumed secondary to prolonged down time and hypoxic [employer] injury. 2. History of overdose. PLAN: We will continue supportive therapies. I have turned him to CPAP trials. Ultimately, a decision will need to be made as to whether a tracheostomy is appropriate or whether he will have an adequate cough to somewhat maintain his airway. Job ID: [id number]
[2020-03-28 20:23] LABS: Vancomycin, Trough 15.3 ug/mL
[2020-03-29] MEDS: Meropenem 2 GM, Admixture Fee 1 EACH in Sodium Chloride 0.9% 100 ML IVPB SCH ×3 (01:23→16:49)
[2020-03-29] MEDS: Metoclopramide HCl 10 MG/2 ML VIAL IVP SCH ×4 (01:24→20:44)
[2020-03-29] MEDS: Propofol 1,000 MG/100 ML VIAL IV PRN ×2 (02:14→07:35)
[2020-03-29 05:01] LABS: Anion Gap 12 mmol/L (10-20); BUN (Urea Nitrogen) 37 mg/dL (8.4-25.7); Calc. Creatinine Clearance 122 mL/min (70-130); Calcium 8.6 mg/dL (7.8-10.44); Carbon Dioxide 26 mmol/L (22-29); Chloride 114 mmol/L (98-107); Estimated GFR-MDRD 80; Glucose 118 mg/dL (70-105); Potassium 3.3 mmol/L (3.5-5.1); Sodium 149 mmol/L (136-145)
[2020-03-29 05:07] LABS: Band 1 % (5-11); Elliptocytes SLIGHT = 2-5 cells (100X) (0-1/hpf); Eosinophils 2 % (0-10); Hemoglobin 11.6 g/dL (14.0-18.0); Lymphocytes 7 % (21-51); MDiff Complete? YES; Mean Corpuscular HGB CONC 32.3 g/dL (32.0-36.0); Mean Corpuscular Hemoglobin 29.8 pg (27.0-31.0); Mean Corpuscular Volume 92.4 fL (78.0-98.0); Mean Platelet Volume 11.2 fL (7.4-10.4); Monocytes 3 % (0-10); Neutrophil 87 % (42-75); Platelet Count 189 thou/uL (130-400); Platelet Morphology Comment Appears Adequate; RBC Distribution Width 13.1 % (11.5-14.5); Red Blood Cell (RBC) Count 3.88 mill/uL (4.70-6.10); White Blood Cell (WBC) Count 12.4 thou/uL (4.8-10.8)
[2020-03-29] MEDS ORDERED: Potassium Chloride 40 MEQ in Sodium Chloride 0.9% 250 ML 250 ML IV SCH (06:30)
[2020-03-29 06:37] LABS: Actual Bicarbonate (HCO3a) 23.4 mEq/L (22-28); Base Excess (BEa) 0.8 mEq/L (-2.0 to +3.0); CO2 Tension 31.5 mmHg (35.0-45.0); Calcium, Ionized (arterial) 1.19 mmol/L (1.12-1.30); Carboxyhemoglobin (COHb) 0.3 gm% (0.0-3.0); Hemoglobin (Hb) 13.1 g/dL (14.0-18.0); O2 Tension (PaO2), arterial 76.5 mmHg (80.0-100.0); pH, Arterial 7.49 (7.35-7.45)
[2020-03-29 07:20] LABS: ALV-art Gradient 169.325 (0-20); Puncture Site RBRACH
[2020-03-29] MEDS: Enoxaparin Sodium 40 MG/0.4 ML SYRINGE SC SCH (08:12)
[2020-03-29] MEDS: Furosemide 40 MG/4 ML VIAL SLOW IVP SCH (08:13)
[2020-03-29] MEDS: Famotidine/PF 20 mg/2ml Vial SLOW IVP SCH ×2 (08:13→20:44)
--- NOTE | 2020-03-29 08:13 | RAD ---
Chest one view HISTORY: Dyspnea. Intubated. Follow-up. COMPARISON: 03/28/2020. FINDINGS: Cardiac silhouette remains magnified by projection. Pulmonary vasculature is unremarkable. Mediastinum is midline. Lines and tubes unchanged in position. Blunting of each costophrenic angle and patchy parenchymal infiltrates at each lung base are similar in appearance. No evidence of pneumothorax. hall monitor leads overlie the chest. IMPRESSION : Stable radiographic appearance of the chest.
[2020-03-29] MEDS: Vancomycin 1.5 GRAM/300 ML BAG 1.5 GM in Premix Bag 1 BAG IVPB SCH ×2 (08:15→20:45)
[2020-03-29] MEDS: Lorazepam 2 MG/ML VIAL SLOW IVP SCH ×2 (09:17→20:45)
--- NOTE | 2020-03-29 09:30 | PRG ---
DATE OF SERVICE: 03/29/2020 SUBJECTIVE: Mr. Maradiaga continues the ventilatory support, although, he is doing quite well on CPAP. Neurologically today, he will at least food production associate his hands and moves his feet to command. He is not seem to be tracking as much. OBJECTIVE: VITAL SIGNS: Blood pressure is 133/64, heart rate is 81, saturation is 100% on CPAP with FiO2 of 0.4. GENERAL: He seems to stare ahead and does not spontaneously look to either side, although, he will deviate his eyes to command, he will food production associate hands to command. He has no adenopathy. LUNGS: Show rhonchi, but no wheezing. HEART: Regular rate and rhythm. ABDOMEN: Soft. Bowel sounds are normal. There is no guarding. He has trace edema. NEUROLOGIC: As above. LABORATORY DATA: White count 12,400, hemoglobin is 11.6, platelet count of 189,000. Electrolytes; sodium 149, potassium 3.3, chloride 114, BUN 37, and creatinine 0.9. Blood gas; pH 7.49 with pCO2 of 31, PO2 of 76, and bicarbonate 23. This again done on CPAP. Chest x-ray shows minimal patchy consolidation in the bases, unchanged. IMPRESSION: 1. Altered mental status in the setting of what sounds like an overdose. The patient was found down and unresponsive for an unknown period of time. Initially, there was concern about his prolonged blunted neurologic status, but he seems to be gradually recovering now. 2. Respiratory failure secondary to above. PLAN: He is doing well on CPAP trials and we expect to try to extubate him today. I see no evidence that he has any type of withdrawal issues. Certainly, if he were to have respiratory failure again, we would reintubate. Critical care today 35 minutes. Job ID: [id number]
--- NOTE | 2020-03-29 14:20 | PDOC.HOSPP ---
- Subjective Encounter Date: 03/29/20 Encounter Time: 10:40 Subjective: Patient is extubated today. He is talking but does not make much sense. You afebrile and his blood pressure systolic in 160 range. - Objective Vital Signs & Weight: Vital Signs (12 hours) Temp Pulse Resp BP Pulse Ox 03/29/20 10:00 23 H 03/29/20 09:00 99.2 F 03/29/20 08:00 20 98 03/29/20 07:20 81 03/29/20 04:00 99.9 F H 30 H 03/29/20 02:31 75 127/76 Weight Admit Weight 240 lb 3.2 oz Weight 210 lb 1.608 oz Most Recent Monitor Data Heart Rate from ECG 86 NIBP 159/68 NIBP BP-Mean 98 Respiration from ECG 29 SpO2 99 I&O: 03/28/20 03/29/20 03/30/20 06:59 06:59 06:59 Intake Total 1840.0 2455.6 Output Total 2205 2435 1000 Balance -365.0 20.6 -1000 Result Diagrams: 03/29/20 03:25 03/29/20 03:25 Additional Labs: Accuchecks 03/29/20 03/29/20 03/28/20 12:38 00:53 17:55 POC Glucose 121 H 127 H 131 H Hospitalist ROS - Medication Medications: Active Medications Generic Name Dose Route Start Last Admin Trade Name Freq PRN Reason Stop Dose Admin Acetaminophen 650 mg 03/25/20 11:20 03/27/20 10:56 Tylenol Elixir PER TUBE 650 mg Q6H PRN Administration Fever > 101 Albuterol/Ipratropium 3 ml 03/20/20 07:00 03/29/20 06:30 Duoneb NEB 3 ml [id number] BRITTANIE Administration Enoxaparin Sodium 40 mg 03/21/20 09:00 03/29/20 08:12 Lovenox SC 40 mg 09 BRITTANIE Administration Famotidine 20 mg 03/20/20 21:00 03/29/20 08:13 Pepcid SLOW IVP 20 mg BID BRITTANIE Administration Furosemide 40 mg 03/21/20 09:00 03/29/20 08:13 Lasix SLOW IVP 40 mg DAILY BRITTANIE Administration Haloperidol Lactate 10 mg 03/27/20 08:45 03/27/20 14:21 Haldol IM 10 mg Q4H PRN Administration Severe Agitation Dexmedetomidine HCl 400 mcg/ 100 mls @ 0 mls/hr 03/21/20 11:45 03/29/20 08:53 Sodium Chloride IVPB 100 mls INF BRITTANIE Administration Protocol Titrate Vancomycin HCl 1.5 gm/ Device 300 mls @ 200 mls/hr 03/27/20 21:00 03/29/20 08 :15 IVPB 300 mls 0900,2100 BRITTANIE Administration Meropenem 2 gm/ Miscellaneous 100 mls @ 200 mls/hr 03/27/20 09:00 03/29/20 08 :53 Medication 1 each/ Sodium IVPB 100 mls Chloride Q8H BRITTANIE Administration Lorazepam 2 mg 03/20/20 06:43 03/28/20 05:51 Ativan SLOW IVP 04/19/20 06:43 2 mg Q1H PRN Administration Breakthrough agitation Lorazepam 1 mg 03/24/20 21:00 03/29/20 09:17 Ativan SLOW IVP 1 mg Q12HR BRITTANIE Administration Metoclopramide HCl 10 mg 03/26/20 14:00 03/29/20 07:38 Reglan IVP 10 mg 0200,0800,1400,2000 BRITTANIE Administration Propofol 1,000 mg 03/20/20 06:43 03/29/20 07:35 Diprivan IV 04/19/20 06:43 1,000 mg INF PRN Administration TO ACHIEVE GOAL RASS Protocol Sodium Chloride 10 ml 03/28/20 09:00 03/29/20 08:13 Flush - Normal Saline IVF 10 ml Q12HR BRITTANIE Administration Vecuronium [place] 10 mg 03/26/20 08:27 03/26/20 10:05 Norcuron IVP 10 mg Q30MIN PRN Administration Agitation - Exam General Appearance: NAD, awake alert General - other findings: Extubated Eye: PERRL ENT: normocephalic atraumatic Neck: supple Heart: RRR Respiratory: CTAB, normal chest expansion Gastrointestinal: soft, normal bowel sounds Neurological: no focal deficits Psychiatric: oriented to person Hosp A/P - Plan (1) Acute respiratory failure with hypoxemia -Due to methadone overdose Hypoxic encephalopathy Metabolic encephalopathy due to drug overdose (2) Aspiration pneumonia Code(s): J69.0 - PNEUMONITIS DUE TO INHALATION OF FOOD AND VOMIT Status: Acute (3) Methadone overdose Code(s): T40.3X1A - POISONING BY METHADONE, ACCIDENTAL (UNINTENTIONAL), INIT Status: Acute - Plan * Acute respiratory failure due to overdose on Methadone, and aspiration pneumonia. * EEG results noted " Intermittent irregular theta activity and nonsustained slow posterior background rhythm Suggesting nonspecific cerebral dysfunction no epileptiform abnormalities during the recording. * Possible Aspiration pneumonia- on meropenem and Vanco currently * * Nutritional support with tube feeding * Continue supportive care as per PCCM * * Continue DVT and GI Prophyaxis * * Full code Status post extubation on -Continue above medical management.
--- NOTE | 2020-03-29 14:58 | PRG ---
DATE OF SERVICE: 03/29/2020 SUBJECTIVE: Mr. Maradiaga was extubated earlier today. He has done well since that time. He is currently awake. He has taken ice chips. He is asking when he might go home and what is our anticipated plan. At this time, we will continue current supportive therapies. Job ID: [id number]
[2020-03-29] MEDS: Lorazepam 2 MG/ML VIAL SLOW IVP PRN (20:46)
[2020-03-30] MEDS: Haloperidol Lactate 5 MG/ML VIAL IM PRN ×2 (00:55→20:57)
[2020-03-30] MEDS: Meropenem 2 GM, Admixture Fee 1 EACH in Sodium Chloride 0.9% 100 ML IVPB SCH ×3 (01:33→17:33)
[2020-03-30] MEDS: Metoclopramide HCl 10 MG/2 ML VIAL IVP SCH ×4 (01:33→20:56)
[2020-03-30 03:40] LABS: Band 13 % (5-11); Lymphocytes 7 % (21-51); MDiff Complete? YES; Mean Corpuscular HGB CONC 32.4 g/dL (32.0-36.0); Mean Corpuscular Volume 92.8 fL (78.0-98.0); Monocytes 4 % (0-10); Neutrophil 76 % (42-75); Platelet Count 243 thou/uL (130-400); Platelet Morphology Comment Appears Adequate; RBC Distribution Width 13.2 % (11.5-14.5); White Blood Cell (WBC) Count 15.7 thou/uL (4.8-10.8)
[2020-03-30 03:46] LABS: Anion Gap 11 mmol/L (10-20); BUN (Urea Nitrogen) 33 mg/dL (8.4-25.7); Calc. Creatinine Clearance 135 mL/min (70-130); Calcium 8.8 mg/dL (7.8-10.44); Carbon Dioxide 26 mmol/L (22-29); Chloride 118 mmol/L (98-107); Estimated GFR-MDRD Greater than 90; Glucose 126 mg/dL (70-105); Sodium 152 mmol/L (136-145)
[2020-03-30] MEDS ORDERED: Potassium Chloride 40 MEQ in Premix Bag 1 BAG IVPB SCH ×2 (04:00→09:30)
[2020-03-30] MEDS: Vancomycin 1.5 GRAM/300 ML BAG 1.5 GM in Premix Bag 1 BAG IVPB SCH ×2 (08:06→20:56)
[2020-03-30] MEDS: Enoxaparin Sodium 40 MG/0.4 ML SYRINGE SC SCH (08:06)
[2020-03-30] MEDS: Lorazepam 2 MG/ML VIAL SLOW IVP SCH ×2 (08:07→20:56)
[2020-03-30] MEDS: Famotidine/PF 20 mg/2ml Vial SLOW IVP SCH ×2 (08:07→20:56)
[2020-03-30 08:48] LABS: Magnesium 2.4 mg/dL (1.6-2.6); Potassium 3.3 mmol/L (3.5-5.1)
[2020-03-30] MEDS: Furosemide 40 MG/4 ML VIAL SLOW IVP SCH (09:30)
[2020-03-30] MEDS ORDERED: Dextrose 5% w/ 20 mEq KCl 1,000 ML IV SCH (10:00)
[2020-03-30] MEDS ORDERED: Diazepam 5 MG TAB PO SCH ×2 (10:15→21:00)
[2020-03-30] MEDS ORDERED: Potassium Citrate 10 MEQ TAB PO SCH (10:15)
[2020-03-30 11:46] LABS: Bilirubin Negative (Negative); Blood, Urine Large (Negative); Glucose, Urine (Dipstick) Negative (Negative); Ketone, Urine 40 mg/dL (Negative); Leukocyte Negative (Negative); Nitrite Negative (Negative); Protein, Urine (Dipstick) 30 mg/dL (Neg-Trace); Urobilinogen 0.2 mg/dL (Less than 2); pH, Urine 5.5 (5.0-9.0)
[2020-03-30 11:49] LABS: RBC/HPF Greater than 50 HPF (0-3); Squamous Epithelial None Seen HPF (0-3)
[2020-03-30 11:58] LABS: Clarity Hazy (Clear)
[2020-03-30 11:59] LABS: Specific Gravity, Urine 1.029 (1.002-1.036)
[2020-03-30 12:01] LABS: Bacteria/HPF None Seen HPF (None Seen)
--- NOTE | 2020-03-30 14:25 | PDOC.HOSPP ---
- Subjective Encounter Date: 03/30/20 Encounter Time: 11:50 Subjective: Patient is still confused. It appears that he may be on methadone remotely but however I do not see any home medication regimen like that. Will schedule low- dose Valium for now. His sodium level is high. Will check the labs as well as repeat the sodium level this afternoon. - Objective Vital Signs & Weight: Vital Signs (12 hours) Temp Pulse Resp BP Pulse Ox 03/30/20 13:44 126 H 22 H 94 L 03/30/20 13:38 168/81 H 03/30/20 07:15 95 03/30/20 07:11 93 L 03/30/20 07:10 110 H 23 H 93 L 03/30/20 07:00 98.6 F 03/30/20 03:00 98.8 F Weight Admit Weight 240 lb 3.2 oz Weight 214 lb 15.211 oz Most Recent Monitor Data Heart Rate from ECG 119 NIBP 155/87 NIBP BP-Mean 109 Respiration from ECG 39 SpO2 93 I&O: 03/29/20 03/30/20 03/31/20 06:59 06:59 06:59 Intake Total 2455.6 1632 610 Output Total 2435 2260 240 Balance 20.6 -628 370 Result Diagrams: 03/30/20 03:20 03/30/20 08:15 Additional Labs: Accuchecks 03/30/20 03/30/20 03/29/20 12:04 08:27 17:17 POC Glucose 112 H 117 H 113 H Hospitalist ROS - Medication Medications: Active Medications Generic Name Dose Route Start Last Admin Trade Name Verito PRN Reason Stop Dose Admin Acetaminophen 650 mg 03/25/20 11:20 03/27/20 10:56 Tylenol Elixir PER TUBE 650 mg Q6H PRN Administration Fever > 101 Albuterol/Ipratropium 3 ml 03/20/20 07:00 03/30/20 13:44 Duoneb NEB 3 ml [id number] BRITTANIE Administration Clonidine 0.1 mg 03/20/20 06:38 03/30/20 13:38 Catapres PO 0.1 mg BIDPRN PRN Administration SBP > 160, use second Enoxaparin Sodium 40 mg 03/21/20 09:00 03/30/20 08:06 Lovenox SC 40 mg 0900 BRITTANIE Administration Famotidine 20 mg 03/20/20 21:00 03/30/20 08:07 Pepcid SLOW IVP 20 mg BID BRITTANIE Administration Furosemide 40 mg 03/21/20 09:00 03/30/20 09:30 Lasix SLOW IVP Not Given DAILY BRITTANIE Haloperidol Lactate 10 mg 03/27/20 08:45 03/30/20 00:55 Haldol IM 10 mg Q4H PRN Administration Severe Agitation Dexmedetomidine HCl 400 mcg/ 100 mls @ 0 mls/hr 03/21/20 11:45 03/29/20 20:46 Sodium Chloride IVPB 100 mls INF BRITTANIE Administration Protocol Titrate Vancomycin HCl 1.5 gm/ Device 300 mls @ 200 mls/hr 03/27/20 21:00 03/30/20 08 :06 IVPB 300 mls 0900,2100 BRITTANIE Administration Meropenem 2 gm/ Miscellaneous 100 mls @ 200 mls/hr 03/27/20 09:00 03/30/20 09 :30 Medication 1 each/ Sodium IVPB 100 mls Chloride Q8H BRITTANIE Administration Potassium Chloride/Dextrose 1,000 mls @ 50 mls/hr 03/30/20 10:00 03/30/20 11: 05 D5w W/ 20 Meq Kcl IV 03/31/20 05:59 1,000 mls .Q20H BRITTANIE Administration Lorazepam 1 mg 03/24/20 21:00 03/30/20 08:07 Ativan SLOW IVP 1 mg Q12HR BRITTANIE Administration Metoclopramide HCl 10 mg 03/26/20 14:00 03/30/20 13:44 Reglan IVP 10 mg 0200,0800,1400,2000 BRITTNAIE Administration Sodium Chloride 10 ml 03/28/20 09:00 03/30/20 08:07 Flush - Normal Saline IVF 10 ml Q12HR BRITTANIE Administration Vecuronium [place] 10 mg 03/26/20 08:27 03/26/20 10:05 Norcuron IVP 10 mg Q30MIN PRN Administration Agitation - Exam General - other findings: Confused Eye: PERRL, anicteric sclera ENT: normocephalic atraumatic Neck: supple Heart: RRR Respiratory: CTAB, normal chest expansion Gastrointestinal: soft, normal bowel sounds Neurological: no focal deficits Psychiatric: not oriented Hosp A/P - Plan (1) Acute respiratory failure with hypoxemia -Due to methadone overdose Hypoxic encephalopathy Metabolic encephalopathy due to drug overdose (2) Aspiration pneumonia Code(s): J69.0 - PNEUMONITIS DUE TO INHALATION OF FOOD AND VOMIT Status: Acute (3) Methadone overdose Code(s): T40.3X1A - POISONING BY METHADONE, ACCIDENTAL (UNINTENTIONAL), INIT Status: Acute - Plan * Acute respiratory failure due to overdose on Methadone, and aspiration pneumonia. * EEG results noted " Intermittent irregular theta activity and nonsustained slow posterior background rhythm Suggesting nonspecific cerebral dysfunction no epileptiform abnormalities during the recording. * Possible Aspiration pneumonia- on meropenem and Vanco currently * * Nutritional support with tube feeding * Continue supportive care as per PCCM * * Continue DVT and GI Prophyaxis * * Full code Status post extubation on -Continue above medical management. Persistent metabolic encephalopathy Hypernatremia--due to lack of free water access and poor p.o. intake--giving free water checking urine as well as serum osmolality TSH and random cortisol and will repeat the sodium level this afternoon. If persistently elevated or trending up will consult to the renal to help us. Hypokalemia--replace the lites History of methadone use and presented with methadone overdose -Not sure what the dose would be I would still refrain from starting him on methadone even at low dose -Instead I scheduled Valium. Leukocytosis on antibiotic -Probably stress demargination. No sign of infection. He is afebrile His UA showed mostly uric acid crystals proteinuria and the insignificant WBCs. Chest x-ray no new infiltrate other than patchy infiltrate at the lung bases that was noted in the past. He is on Merrem for that. Blood culture off fifth showed coag negative Staphylococcus. This is 1 out of 2 ; other sets no growth for the last 5 days. Heamturia and proteinuria --repeat the UA, if persistent hematuria, get US and may consider urology eval.
[2020-03-30 15:11] LABS: Anion Gap 13 mmol/L (10-20); BUN (Urea Nitrogen) 30 mg/dL (8.4-25.7); Calc. Creatinine Clearance 137 mL/min (70-130); Carbon Dioxide 24 mmol/L (22-29); Chloride 122 mmol/L (98-107); Estimated GFR-MDRD Greater than 90; Glucose 118 mg/dL (70-105); Potassium 3.6 mmol/L (3.5-5.1); Sodium 155 mmol/L (136-145)
[2020-03-30 16:12] LABS: Thyroid Stimulating Hormone 0.5711 uIU/mL (0.35-4.94)
--- NOTE | 2020-03-30 16:51 | ULT ---
US Renal Bilateral STANDARD History: Hematuria Comparison: None. Findings: Real-time grayscale and color evaluation of the kidneys and urinary bladder was performed. Right kidney measures 9.2 x 5.5 x 6.5 cm and the left kidney measures 10.8 x 5.8 x 6.3 cm. There is a cyst superior pole right kidney which measures up to 2.8 cm. No renal mass, hydronephrosis or abnormal calcifications. Urinary bladder not well seen. Impression: Simple cyst superior pole right kidney without evidence for obstructive uropathy.
[2020-03-30] MEDS ORDERED: 1/2 NS w/KCL 20 mEq 1,000 ML IV SCH (17:00)
[2020-03-30 20:22] LABS: Vancomycin, Trough 10.3 ug/mL
[2020-03-30] MEDS: Dextrose 5% in Water 1,000 ML IV SCH (20:55)
[2020-03-30] MEDS: Ondansetron PF 4 MG/2 ML Vial IVP PRN (20:57)
--- NOTE | 2020-03-30 21:14 | PRG ---
DATE OF SERVICE: 03/30/2020 SUBJECTIVE: Mr. Maradiaga was extubated at the weekend. He remains encephalopathic. He is tachycardic. OBJECTIVE: VITAL SIGNS: Blood pressure 144/69, respiratory rates in the 20s. GENERAL: He is hallucinating. LUNGS: Clear. HEART: Regular rhythm. ABDOMEN: Soft. LABORATORY DATA: White count 15.7, hemoglobin 12, platelets 243. Sodium 155, potassium 3.6, chloride 122, bicarb 24, BUN 30, creatinine 0.87. IMPRESSION: 1. Multiple drug overdose. 2. Hypoxic encephalopathy, secondary to his drug overdose. We will continue with ludwig Guillen. He has been afebrile since he was switched to meropenem, where he had 3 different coag-negative Staph from one blood culture, and the other blood culture was negative, arguing that this is a contaminant. We will continue supportive care and antibiotics for now. Job ID: [id number]
[2020-03-31] MEDS: Meropenem 2 GM, Admixture Fee 1 EACH in Sodium Chloride 0.9% 100 ML IVPB SCH ×3 (03:25→17:45)
[2020-03-31] MEDS: Metoclopramide HCl 10 MG/2 ML VIAL IVP SCH ×3 (03:26→13:33)
[2020-03-31] MEDS: Dextrose 5% in Water 1,000 ML IV SCH ×3 (03:26→14:21)
[2020-03-31 04:57] LABS: Anion Gap 18 mmol/L (10-20); BUN (Urea Nitrogen) 28 mg/dL (8.4-25.7); Calc. Creatinine Clearance 140 mL/min (70-130); Calcium 6.4 mg/dL (7.8-10.44); Carbon Dioxide 21 mmol/L (22-29); Chloride 122 mmol/L (98-107); Estimated GFR-MDRD Greater than 90; Glucose 130 mg/dL (70-105); Potassium 5.6 mmol/L (3.5-5.1); Sodium 155 mmol/L (136-145)
[2020-03-31 05:02] LABS: Hemoglobin 12.3 g/dL (14.0-18.0); Hypochromia SLIGHT = 6-15 cells (100X) (0-5/hpf); Lymphocytes 11 % (21-51); MDiff Complete? YES; Mean Corpuscular HGB CONC 32.6 g/dL (32.0-36.0); Mean Corpuscular Hemoglobin 30.7 pg (27.0-31.0); Mean Corpuscular Volume 94.1 fL (78.0-98.0); Mean Platelet Volume 10.1 fL (7.4-10.4); Monocytes 4 % (0-10); Neutrophil 85 % (42-75); Platelet Count 306 thou/uL (130-400); Platelet Morphology Comment Appears Adequate; RBC Distribution Width 13.7 % (11.5-14.5); Red Blood Cell (RBC) Count 4.02 mill/uL (4.70-6.10); White Blood Cell (WBC) Count 17.6 thou/uL (4.8-10.8)
[2020-03-31] MEDS: Enoxaparin Sodium 40 MG/0.4 ML SYRINGE SC SCH (09:06)
[2020-03-31] MEDS: Diazepam 5 MG TAB PO SCH (09:06)
[2020-03-31] MEDS: Famotidine/PF 20 mg/2ml Vial SLOW IVP SCH (09:07)
[2020-03-31] MEDS: Vancomycin HCl 1.75 GM in Sodium Chloride 0.9% 500 ML IVPB SCH (09:09)
[2020-03-31] MEDS: Lorazepam 2 MG/ML VIAL SLOW IVP SCH ×2 (09:40→15:07)
--- NOTE | 2020-03-31 11:39 | PDOC.HOSPP ---
- Subjective Encounter Date: 03/31/20 Encounter Time: 11:45 Subjective: Discussed with RN. Patient is still confused but alert oriented x1. He was sleepy this morning Ativan was held. I talked to the yesterday evening almost 30 minutes. She states that he is quite extensively abusing the drugs. She wants to know whether any rehab options can be explored once he is medically stable. I have explained to her that when he is alert oriented and able to have a meaningful conversation then will ask mental health for video conferencing with him. Very likely they would like to follow-up with him in an outpatient setting. Sodium is 155 remained the same like yesterday not worsening. Potassium 5.6 Kayexalate given. Will check his potassium level this evening. D5 running at 200 mL an hour. - Objective Vital Signs & Weight: Vital Signs (12 hours) Temp Pulse Resp Pulse Ox 03/31/20 08:20 101 H 24 H 95 03/31/20 08:00 99.5 F 91 L 03/31/20 02:00 98.8 F 03/31/20 00:32 105 H 22 H 93 L Weight Admit Weight 240 lb 3.2 oz Weight 214 lb 11.684 oz Most Recent Monitor Data Heart Rate from ECG 119 NIBP 128/72 NIBP BP-Mean 90 Respiration from ECG 41 SpO2 93 I&O: 03/30/20 03/31/20 04/01/20 06:59 06:59 06:59 Intake Total 1632 2012 760 Output Total 2260 1335 340 Balance -628 677 420 Result Diagrams: 03/31/20 03:30 03/31/20 03:30 Additional Labs: Accuchecks 03/31/20 03/31/20 03/30/20 11:29 00:16 14:31 POC Glucose 131 H 110 115 H 03/30/20 12:04 POC Glucose 112 H Hospitalist ROS - Medication Medications: Active Medications Generic Name Dose Route Start Last Admin Trade Name Freq PRN Reason Stop Dose Admin Acetaminophen 650 mg 03/25/20 11:20 03/27/20 10:56 Tylenol Elixir PER TUBE 650 mg Q6H PRN Administration Fever > 101 Albuterol/Ipratropium 3 ml 03/20/20 07:00 03/31/20 08:20 Duoneb NEB 3 ml [id number] BRITTANIE Administration Clonidine 0.1 mg 03/20/20 06:38 03/30/20 13:38 Catapres PO 0.1 mg BIDPRN PRN Administration SBP > 160, use second Diazepam 5 mg 03/31/20 09:00 03/31/20 09:06 Valium PO 5 mg BID BRITTANIE Administration Enoxaparin Sodium 40 mg 03/21/20 09:00 03/31/20 09:06 Lovenox SC 40 mg 0900 BRITTANIE Administration Famotidine 20 mg 03/20/20 21:00 03/31/20 09:07 Pepcid SLOW IVP 20 mg BID BRITTANIE Administration Haloperidol Lactate 10 mg 03/27/20 08:45 03/30/20 20:57 Haldol IM 10 mg Q4H PRN Administration Severe Agitation Dexmedetomidine HCl 400 mcg/ 100 mls @ 0 mls/hr 03/21/20 11:45 03/29/20 20:46 Sodium Chloride IVPB 100 mls INF BRITTANIE Administration Protocol Titrate Meropenem 2 gm/ Miscellaneous 100 mls @ 200 mls/hr 03/27/20 09:00 03/31/20 10 :19 Medication 1 each/ Sodium IVPB 100 mls Chloride Q8H BRITTANIE Administration Vancomycin HCl 1.75 gm/ Sodium 500 mls @ 250 mls/hr 03/31/20 09:00 03/31/20 09:09 Chloride IVPB 500 mls Q12HR BRITTANIE Administration Dextrose/Water 1,000 mls @ 200 mls/hr 03/31/20 10:41 03/31/20 11:16 D5w IV 1,000 mls .Q5H BRITTANIE Administration Lorazepam 1 mg 03/24/20 21:00 03/31/20 09:40 Ativan SLOW IVP Not Given Q12HR BRITTANIE Metoclopramide HCl 10 mg 03/26/20 14:00 03/31/20 09:03 Reglan IVP 10 mg 0200,0800,1400,2000 BRITTANIE Administration Ondansetron HCl 4 mg 03/20/20 06:38 03/30/20 20:57 Zofran IVP 4 mg Q6H PRN Administration Nausea/Vomiting, use 1st Sodium Chloride 10 ml 03/28/20 09:00 03/31/20 09:43 Flush - Normal Saline IVF 10 ml Q12HR BRITTANIE Administration Sodium Chloride 10 ml 03/28/20 06:26 03/31/20 03:27 Flush - Normal Saline IVF 10 ml PRN PRN Administration Saline Flush Sodium Polystyrene Sulfonate 30 gm 03/31/20 10:45 03/31/20 11:06 Kayexalate Oral Susp 15 Gm/60 Ml PO 03/31/20 13:00 30 gm NOW BRITTANIE Administration - Exam General Appearance: ill appearing General - other findings: Confused but oriented to himself. Eye: PERRL ENT: normocephalic atraumatic Neck: supple Heart: RRR Respiratory: CTAB, normal chest expansion Gastrointestinal: soft, normal bowel sounds Neurological: no focal deficits Psychiatric: oriented to person, somnolent Hosp A/P - Plan (1) Acute respiratory failure with hypoxemia -Due to methadone overdose Hypoxic encephalopathy Metabolic encephalopathy due to drug overdose (2) Aspiration pneumonia Code(s): J69.0 - PNEUMONITIS DUE TO INHALATION OF FOOD AND VOMIT Status: Acute (3) Methadone overdose Code(s): T40.3X1A - POISONING BY METHADONE, ACCIDENTAL (UNINTENTIONAL), INIT Status: Acute - Plan * Acute respiratory failure due to overdose on Methadone, and aspiration pneumonia. * EEG results noted " Intermittent irregular theta activity and nonsustained slow posterior background rhythm Suggesting nonspecific cerebral dysfunction no epileptiform abnormalities during the recording. * Possible Aspiration pneumonia- on meropenem and Vanco currently * * Nutritional support with tube feeding * Continue supportive care as per PCCM * * Continue DVT and GI Prophyaxis * * Full code Status post extubation on nin -Continue above medical management. 10th Persistent metabolic encephalopathy Hypernatremia--due to lack of free water access and poor p.o. intake--giving free water checking urine as well as serum osmolality TSH and random cortisol and will repeat the sodium level this afternoon. If persistently elevated or trending up will consult to the renal to help us. Hypokalemia--replace the lites History of methadone use and presented with methadone overdose -Not sure what the dose would be I would still refrain from starting him on methadone even at low dose -Instead I scheduled Valium. Leukocytosis on antibiotic -Probably stress demargination. No sign of infection. He is afebrile His UA showed mostly uric acid crystals proteinuria and the insignificant WBCs. Chest x-ray no new infiltrate other than patchy infiltrate at the lung bases that was noted in the past. He is on Merrem for that. Blood culture off fifth showed coag negative Staphylococcus. This is 1 out of 2 ; other sets no growth for the last 5 days. Heamturia and proteinuria --repeat the UA, if persistent hematuria, get US and may consider urology eval. 11th Hypernatremia Hyperkalemia -Serum osmolality very high suggestive of significant volume depletion; urine osmolality high - suggested that kidney is appropriately functioning. Holding the water. - Sodium is 155 remained the same like yesterday not worsening. Potassium 5.6 Kayexalate given. Will check his potassium level this evening. D5 running at 200 mL an hour. Renal ultrasound-no obstruction I talked to the yesterday evening almost 30 minutes. She states that he is quite extensively abusing the drugs. She wants to know whether any rehab options can be explored once he is medically stable. I have explained to her that when he is alert oriented and able to have a meaningful conversation then will ask mental health for video conferencing with him. Very likely they would like to follow-up with him in an outpatient setting.
[2020-03-31] MEDS: Haloperidol Lactate 5 MG/ML VIAL IM PRN (14:13)
--- NOTE | 2020-03-31 15:49 | PRG ---
DATE OF SERVICE: 03/31/2020 SUBJECTIVE: Mr. Maradiaga remains encephalopathic. OBJECTIVE: VITAL SIGNS: Heart rate is 119, blood pressure 153/68, respiratory rates in the 20s. LUNGS: Clear. HEART: Regular rhythm. ABDOMEN: Soft. EXTREMITIES: Without asymmetry or edema. LABORATORY DATA: White count is 17.6, hemoglobin 12.3, and platelets 303. Sodium 155, potassium 5.6, chloride 122, bicarb 21, BUN 28, creatinine 0.85, and glucose 130. IMPRESSION: 1. Status post drug overdose with persistent encephalopathy, likely secondary to hypoxemia. 2. ? Pneumonia, on meropenem and vancomycin. I would probably treat him for a week with both of these antibiotics and discontinue them. He should respond to the addition of free water and should not need nephrology input. His long history of heavy drug abuse is a big long-term issue, but he is not a candidate for any type of rehabilitation until his encephalopathy improves. Job ID: [id number]
[2020-03-31 16:11] LABS: Potassium 3.1 mmol/L (3.5-5.1)
[2020-03-31] MEDS ORDERED: Potassium Chloride 20 MEQ TAB PO SCH (17:30)
--- NOTE | 2020-03-31 19:15 | PRG ---
DATE OF SERVICE: 03/31/2020 SUBJECTIVE: The patient was seen and examined, noted with the following vital signs. OBJECTIVE: VITAL SIGNS: respiratory rate of 23, heart rate 117, blood pressure 147/62. HEENT: Unremarkable. CARDIOVASCULAR: First and second heart sounds were heard. DIGESTIVE: Revealed a benign abdomen with positive bowel sounds. EXTREMITIES: No peripheral edema. SKIN: No new gross rash. LYMPHATICS: No peripheral lymphadenopathy. LABORATORY INVESTIGATION: Reviewed, worsening hypernatremia with a sodium of 155, potassium 5.6. IMPRESSION: 1. Hypernatremia. 2. Hyperkalemia. PLAN: 1. Increase the free water repletion. 2. Kayexalate to address the hyperkalemia, probably helps the patient to move bowel also. 3. Further management will be dependent on the clinical course. Job ID: [id number]
[2020-04-01] MEDS: Metoclopramide HCl 10 MG/2 ML VIAL IVP SCH ×5 (00:15→23:14)
[2020-04-01] MEDS: Dextrose 5% in Water 1,000 ML IV SCH ×7 (00:15→23:15)
[2020-04-01] MEDS: Diazepam 5 MG TAB PO SCH ×3 (00:16→23:14)
[2020-04-01] MEDS: Famotidine/PF 20 mg/2ml Vial SLOW IVP SCH ×3 (00:16→23:14)
[2020-04-01] MEDS: Lorazepam 2 MG/ML VIAL SLOW IVP SCH ×2 (00:17→10:01)
[2020-04-01] MEDS: Vancomycin HCl 1.75 GM in Sodium Chloride 0.9% 500 ML IVPB SCH ×3 (00:17→20:05)
[2020-04-01] MEDS: Haloperidol Lactate 5 MG/ML VIAL IM PRN ×5 (00:18→23:17)
[2020-04-01] MEDS: Meropenem 2 GM, Admixture Fee 1 EACH in Sodium Chloride 0.9% 100 ML IVPB SCH ×3 (00:18→16:00)
--- NOTE | 2020-04-01 00:31 | CON ---
DATE OF CONSULTATION: 03/30/2020 CONSULTING PHYSICIAN: Sameera Solorio MD REQUESTING PHYSICIAN: Dr. Hess. REASON FOR CONSULTATION: Hypernatremia. IMPRESSION: Hypernatremia, this is likely in the context of free water deficit compounded by Lasix usage. PLAN: 1. Aggressive free water repletion. Therefore, we will change the current IV fluid and switch it over to free water 5% dextrose and I adjust the rate accordingly based on this sodium response. 2. Further management will be dependent on the clinical course. HISTORY OF PRESENT ILLNESS: History is that of a 54-year-old gentleman who was found unresponsive at home. The patient with a history of opioid addiction, started on methadone recently and methadone. The patient was intubated and mechanically ventilated while on ventilator. The patient was on Lasix. Rising sodium levels noted. At this time of dictation, sodium level has gone above 150. It caused the need for renal consultation. PAST MEDICAL HISTORY: Could not be substantiated, that includes opioid addiction. FAMILY HISTORY: Could not be obtained. ALLERGIES: NO KNOWN DRUG ALLERGIES. MEDICATIONS: As documented on [facility]. REVIEW OF SYSTEMS: Highly limited. PHYSICAL EXAMINATION: GENERAL: The patient was found to be somewhat confused. VITAL SIGNS: Noted with the following vital signs; blood pressure 132/76, pulse of 94, and respiratory rate of 23. HEENT: Unremarkable. CARDIOVASCULAR SYSTEM: First and second heart sounds were heard. DIGESTIVE SYSTEM: Revealed obese abdomen with positive bowel sounds. EXTREMITIES: No peripheral edema. SKIN: No new gross rash. LYMPHATICS: No peripheral lymphadenopathy. LABORATORY INVESTIGATION: Showed a sodium of 155, potassium 3.6, BUN of 30 with a creatinine of 0.87. SUMMARY: A 54-year-old gentleman with narcotic addiction/overdose, status post mechanical ventilation, experiencing worsening hypernatremia. Thank you for this consultation. We will follow with you. Job ID: [id number]
[2020-04-01 04:10] LABS: Band 1 % (5-11); Eosinophils 1 % (0-10); Hemoglobin 11.2 g/dL (14.0-18.0); Lymphocytes 11 % (21-51); MDiff Complete? YES; Mean Corpuscular HGB CONC 32.8 g/dL (32.0-36.0); Mean Corpuscular Hemoglobin 30.7 pg (27.0-31.0); Mean Corpuscular Volume 93.5 fL (78.0-98.0); Mean Platelet Volume 9.8 fL (7.4-10.4); Monocytes 2 % (0-10); Neutrophil 85 % (42-75); Platelet Count 280 thou/uL (130-400); Platelet Morphology Comment Appears Adequate; RBC Distribution Width 13.3 % (11.5-14.5); Red Blood Cell (RBC) Count 3.64 mill/uL (4.70-6.10); White Blood Cell (WBC) Count 14.7 thou/uL (4.8-10.8)
[2020-04-01 04:40] LABS: Anion Gap 10 mmol/L (10-20); BUN (Urea Nitrogen) 22 mg/dL (8.4-25.7); Calc. Creatinine Clearance 161 mL/min (70-130); Carbon Dioxide 26 mmol/L (22-29); Chloride 118 mmol/L (98-107); Estimated GFR-MDRD Greater than 90; Glucose 131 mg/dL (70-105); Potassium 2.8 mmol/L (3.5-5.1); Sodium 151 mmol/L (136-145)
[2020-04-01] MEDS: Potassium Chloride 40 MEQ in Premix Bag 1 BAG IVPB SCH ×2 (06:13→07:50)
[2020-04-01] MEDS: Enoxaparin Sodium 40 MG/0.4 ML SYRINGE SC SCH (09:06)
--- NOTE | 2020-04-01 13:04 | PDOC.HOSPP ---
- Subjective Encounter Date: 04/01/20 Encounter Time: 12:20 Subjective: Patient is quite confused. He is not oriented. Talk to the RN. It is too early to consult Mental health tachycardic little somnolent. Otherwise mentally he is not back to his baseline. - Objective Vital Signs & Weight: Vital Signs (12 hours) Temp Pulse Resp Pulse Ox 04/01/20 12:32 110 H 35 H 99 04/01/20 12:00 98.7 F 04/01/20 08:58 99 04/01/20 08:53 93 19 97 04/01/20 08:00 98.2 F 04/01/20 07:18 95 Weight Admit Weight 240 lb 3.2 oz Weight 214 lb 11.684 oz Most Recent Monitor Data Heart Rate from ECG 108 NIBP 124/63 NIBP BP-Mean 83 Respiration from ECG 22 SpO2 94 I&O: 03/31/20 04/01/20 04/02/20 06:59 06:59 06:59 Intake Total 2011 0974 417 Output Total 1335 9825 315 Balance 677 4630 375 Result Diagrams: 04/01/20 03:42 04/01/20 03:42 Additional Labs: Accuchecks 04/01/20 03/31/20 11:57 15:46 POC Glucose 112 H 145 H Hospitalist ROS - Medication Medications: Active Medications Generic Name Dose Route Start Last Admin Trade Name Freq PRN Reason Stop Dose Admin Acetaminophen 650 mg 03/25/20 11:20 03/27/20 10:56 Tylenol Elixir PER TUBE 650 mg Q6H PRN Administration Fever > 101 Albuterol/Ipratropium 3 ml 03/20/20 07:00 04/01/20 12:32 Duoneb NEB 3 ml [id number] BRITTANIE Administration Clonidine 0.1 mg 03/20/20 06:38 03/30/20 13:38 Catapres PO 0.1 mg BIDPRN PRN Administration SBP > 160, use second Diazepam 5 mg 03/31/20 09:00 04/01/20 07:49 Valium PO 5 mg BID BRITTANIE Administration Enoxaparin Sodium 40 mg 03/21/20 09:00 04/01/20 09:06 Lovenox SC 40 mg 0900 BRITTANIE Administration Famotidine 20 mg 03/20/20 21:00 04/01/20 09:06 Pepcid SLOW IVP 20 mg BID BRITTANIE Administration Haloperidol Lactate 10 mg 03/27/20 08:45 04/01/20 10:02 Haldol IM 10 mg Q4H PRN Administration Severe Agitation Dexmedetomidine HCl 400 mcg/ 100 mls @ 0 mls/hr 03/21/20 11:45 03/29/20 20:46 Sodium Chloride IVPB 100 mls INF BRITTANIE Administration Protocol Titrate Meropenem 2 gm/ Miscellaneous 100 mls @ 200 mls/hr 03/27/20 09:00 04/01/20 09 :43 Medication 1 each/ Sodium IVPB 100 mls Chloride Q8H BRITTANIE Administration Vancomycin HCl 1.75 gm/ Sodium 500 mls @ 250 mls/hr 03/31/20 09:00 04/01/20 09:06 Chloride IVPB 500 mls Q12HR BRITTANIE Administration Dextrose/Water 1,000 mls @ 200 mls/hr 03/31/20 10:41 04/01/20 12:12 D5w IV Not Given .Q5H BRITTANIE Metoclopramide HCl 10 mg 03/26/20 14:00 04/01/20 07:49 Reglan IVP Not Given 0200,0800,1400,2000 [facility] Ondansetron HCl 4 mg 03/20/20 06:38 03/30/20 20:57 Zofran IVP 4 mg Q6H PRN Administration Nausea/Vomiting, use 1st Sodium Chloride 10 ml 03/28/20 09:00 04/01/20 09:44 Flush - Normal Saline IVF 10 ml Q12HR BRITTANIE Administration Sodium Chloride 10 ml 03/28/20 06:26 03/31/20 03:27 Flush - Normal Saline IVF 10 ml PRN PRN Administration Saline Flush - Exam General - other findings: Quite confused Eye: PERRL ENT: normocephalic atraumatic Neck: supple Heart: RRR Respiratory: CTAB, normal chest expansion Gastrointestinal: soft, normal bowel sounds Neurological: no focal deficits Psychiatric: not oriented Hosp A/P - Plan (1) Acute respiratory failure with hypoxemia -Due to methadone overdose Hypoxic encephalopathy Metabolic encephalopathy due to drug overdose (2) Aspiration pneumonia Code(s): J69.0 - PNEUMONITIS DUE TO INHALATION OF FOOD AND VOMIT Status: Acute (3) Methadone overdose Code(s): T40.3X1A - POISONING BY METHADONE, ACCIDENTAL (UNINTENTIONAL), INIT Status: Acute - Plan * Acute respiratory failure due to overdose on Methadone, and aspiration pneumonia. * EEG results noted " Intermittent irregular theta activity and nonsustained slow posterior background rhythm Suggesting nonspecific cerebral dysfunction no epileptiform abnormalities during the recording. * Possible Aspiration pneumonia- on meropenem and Vanco currently * * Nutritional support with tube feeding * Continue supportive care as per PCCM * * Continue DVT and GI Prophyaxis * * Full code Status post extubation on nin -Continue above medical management. 10th Persistent metabolic encephalopathy Hypernatremia--due to lack of free water access and poor p.o. intake--giving free water checking urine as well as serum osmolality TSH and random cortisol and will repeat the sodium level this afternoon. If persistently elevated or trending up will consult to the renal to help us. Hypokalemia--replace the lites History of methadone use and presented with methadone overdose -Not sure what the dose would be I would still refrain from starting him on methadone even at low dose -Instead I scheduled Valium. Leukocytosis on antibiotic -Probably stress demargination. No sign of infection. He is afebrile His UA showed mostly uric acid crystals proteinuria and the insignificant WBCs. Chest x-ray no new infiltrate other than patchy infiltrate at the lung bases that was noted in the past. He is on Merrem for that. Blood culture off fifth showed coag negative Staphylococcus. This is 1 out of 2 ; other sets no growth for the last 5 days. Heamturia and proteinuria --repeat the UA, if persistent hematuria, get US and may consider urology eval. 11th Hypernatremia Hyperkalemia -Serum osmolality very high suggestive of significant volume depletion; urine osmolality high - suggested that kidney is appropriately functioning. Holding the water. - Sodium is 155 remained the same like yesterday not worsening. Potassium 5.6 Kayexalate given. Will check his potassium level this evening. D5 running at 200 mL an hour. Renal ultrasound-no obstruction I talked to the yesterday evening almost 30 minutes. She states that he is quite extensively abusing the drugs. She wants to know whether any rehab options can be explored once he is medically stable. I have explained to her that when he is alert oriented and able to have a meaningful conversation then will ask mental health for video conferencing with him. Very likely they would like to follow-up with him in an outpatient setting. 12th Continue the supportive measures for the most part. Will DC the scheduled Ativan. He is not ready yet for any meaningful physical therapy evaluation. And he is too risky to move him to the medical floor --fall risk patient, unless we provide the sitter. Plan is to consult to the mental health for video conferencing with the patient for drug rehab options, and patient is back to baseline mentally and able to communicate with us meaningfully.
--- NOTE | 2020-04-01 18:26 | PRG ---
DATE OF SERVICE: 04/01/2020 SUBJECTIVE: The patient was seen and examined, still confused, thrashing around on the bed, noted with the following vital signs. OBJECTIVE: VITAL SIGNS: Blood pressure 120/66, pulse of 103, respiratory rate of 18, O2 saturation 96%. HEENT: Unremarkable. CARDIOVASCULAR SYSTEM: First and second heart sounds were heard. RESPIRATORY SYSTEM: Clear to auscultation. DIGESTIVE SYSTEM: Revealed an obese abdomen. EXTREMITIES: No peripheral edema. SKIN: No new gross rash. LYMPHATICS: No peripheral lymphadenopathy. LABORATORY INVESTIGATION: Showed a potassium down to 2.8, sodium of 151. IMPRESSION: 1. Hypernatremia, improving. 2. Hypokalemia, down from hyperkalemic range. PLAN: 1. Replete potassium. 2. Continue free water repletion. 3. Further management to be dependent on the clinical course. Job ID: [id number]
[2020-04-01] MEDS ORDERED: Potassium Chloride 40 MEQ in Premix Bag 1 BAG IVPB SCH (20:15)
--- NOTE | 2020-04-01 20:42 | PRG ---
DATE OF SERVICE: 04/01/2020 SUBJECTIVE: Mr. Maradiaga still is encephalopathic. OBJECTIVE: VITAL SIGNS: He is afebrile. Heart rate is 100, respiratory rates in the 20s to 30s, oximetry is 96, blood pressure 97/46. LUNGS: Remarkable for coarse equal breath sounds. HEART: Regular rhythm. ABDOMEN: Soft. EXTREMITIES: Without edema. LABORATORY DATA: White count is 14.7, hemoglobin 11.2, and platelets 280. Sodium 151, potassium 2.8, chloride 118, bicarb 26, BUN 22, and creatinine 0.7. IMPRESSION: 1. 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 2. Status post mechanical ventilation for his overdose. 3. Persistent encephalopathy. 4. Hypernatremia. This is simply something that can be fixed with free water administration. 5. He will likely need a PEG insertion at some point, not optimistic that he will become functional again, only time will answer that question. Job ID: [id number]
[2020-04-01 21:34] LABS: Vancomycin, Trough 36.2 ug/mL
[2020-04-01] MEDS: Ondansetron PF 4 MG/2 ML Vial IVP PRN (23:16)
[2020-04-02] MEDS: Meropenem 2 GM, Admixture Fee 1 EACH in Sodium Chloride 0.9% 100 ML IVPB SCH ×3 (01:28→17:29)
[2020-04-02] MEDS: Metoclopramide HCl 10 MG/2 ML VIAL IVP SCH ×4 (01:28→20:11)
[2020-04-02] MEDS: Dextrose 5% in Water 1,000 ML IV SCH ×2 (01:29→16:10)
[2020-04-02 04:49] LABS: Anion Gap 9 mmol/L (10-20); BUN (Urea Nitrogen) 16 mg/dL (8.4-25.7); Calc. Creatinine Clearance 155 mL/min (70-130); Calcium 7.8 mg/dL (7.8-10.44); Carbon Dioxide 26 mmol/L (22-29); Chloride 110 mmol/L (98-107); Estimated GFR-MDRD Greater than 90; Glucose 158 mg/dL (70-105); Sodium 142 mmol/L (136-145)
[2020-04-02 04:50] LABS: Band 1 % (5-11); Hemoglobin 10.7 g/dL (14.0-18.0); Hypochromia SLIGHT = 6-15 cells (100X) (0-5/hpf); Lymphocytes 12 % (21-51); MDiff Complete? YES; Mean Corpuscular HGB CONC 32.1 g/dL (32.0-36.0); Mean Corpuscular Hemoglobin 30.2 pg (27.0-31.0); Mean Platelet Volume 10.4 fL (7.4-10.4); Monocytes 4 % (0-10); Neutrophil 83 % (42-75); Platelet Count 267 thou/uL (130-400); Platelet Morphology Comment Appears Adequate; RBC Distribution Width 13.2 % (11.5-14.5); Red Blood Cell (RBC) Count 3.53 mill/uL (4.70-6.10); White Blood Cell (WBC) Count 10.2 thou/uL (4.8-10.8)
[2020-04-02 04:58] LABS: Potassium 2.9 mmol/L (3.5-5.1)
[2020-04-02] MEDS: Potassium Chloride 40 MEQ in Premix Bag 1 BAG IVPB SCH ×2 (05:05→10:19)
[2020-04-02 08:51] LABS: Vancomycin, Trough 15.5 ug/mL
[2020-04-02] MEDS: Vancomycin HCl 1.75 GM in Sodium Chloride 0.9% 500 ML IVPB SCH ×2 (09:30→20:14)
[2020-04-02] MEDS: Enoxaparin Sodium 40 MG/0.4 ML SYRINGE SC SCH (09:30)
--- NOTE | 2020-04-02 09:35 | PRG ---
DATE OF SERVICE: 04/02/2020 SUBJECTIVE: Mr. Maradiaga still encephalopathic, but he is more cooperative each day. OBJECTIVE: VITAL SIGNS: Heart rate is in the 80s, oximetry is 99% on room air, blood pressure 137/64. LUNGS: Clear. HEART: Regular rhythm. ABDOMEN: Soft and nontender. EXTREMITIES: Without edema. LABORATORY DATA: White count 10.2, hemoglobin 10.7, platelets 267. Sodium 142, potassium 2.9, chloride 110, bicarb 26, BUN 16, creatinine 0.77. He continues to have problems with potassium. I would wonder if he did have a renal tubular acidosis contributing to this. He is certainly a candidate to move out of Critical Care Unit at this point. We will sign off. Job ID: [id number]
[2020-04-02] MEDS: Famotidine/PF 20 mg/2ml Vial SLOW IVP SCH ×2 (09:56→20:12)
[2020-04-02] MEDS: Diazepam 5 MG TAB PO SCH ×2 (09:56→20:12)
[2020-04-02] MEDS: Potassium Chloride 40 MEQ in Dextrose 5% in Water 1,000 ML IV SCH ×2 (10:12→20:11)
--- NOTE | 2020-04-02 13:53 | PDOC.HOSPP ---
- Subjective Encounter Date: 04/02/20 Encounter Time: 11:30 Subjective: Patient T is sleeping hugging his pillow. He is at least lying in the bed straight. Instead of horizontally like yesterday. I talked to the RN. He is okay to be transferred to the floor. if possible we can put a sitter otherwise close observation. - Objective Vital Signs & Weight: Vital Signs (12 hours) Temp Pulse Pulse Ox 04/02/20 12:00 99.0 F 04/02/20 08:03 98 04/02/20 08:00 99.1 F 04/02/20 07:56 86 99 Weight Admit Weight 240 lb 3.2 oz Weight 214 lb 11.684 oz Most Recent Monitor Data Heart Rate from ECG 79 NIBP 116/59 NIBP BP-Mean 78 Respiration from ECG 29 SpO2 83 I&O: 04/01/20 04/02/20 04/03/20 06:59 06:59 06:59 Intake Total 5705 6116 1540 Output Total 1075 1165 560 Balance 4630 4951 980 Result Diagrams: 04/02/20 04:10 04/02/20 04:10 Additional Labs: Accuchecks 04/01/20 15:44 POC Glucose 125 H Hospitalist ROS - Medication Medications: Active Medications Generic Name Dose Route Start Last Admin Trade Name Dimasq PRN Reason Stop Dose Admin Acetaminophen 650 mg 03/25/20 11:20 03/27/20 10:56 Tylenol Elixir PER TUBE 650 mg Q6H PRN Administration Fever > 101 Albuterol/Ipratropium 3 ml 03/20/20 07:00 04/02/20 07:56 Duoneb NEB 3 ml [id number] BRITTANIE Administration Clonidine 0.1 mg 03/20/20 06:38 03/30/20 13:38 Catapres PO 0.1 mg BIDPRN PRN Administration SBP > 160, use second Diazepam 5 mg 03/31/20 09:00 04/02/20 09:56 Valium PO 5 mg BID BRITTANIE Administration Enoxaparin Sodium 40 mg 03/21/20 09:00 04/02/20 09:30 Lovenox SC 40 mg 0900 BRITTANIE Administration Famotidine 20 mg 03/20/20 21:00 04/02/20 09:56 Pepcid SLOW IVP 20 mg BID BRITTANIE Administration Haloperidol Lactate 10 mg 03/27/20 08:45 04/01/20 23:17 Haldol IM 10 mg Q4H PRN Administration Severe Agitation Dexmedetomidine HCl 400 mcg/ 100 mls @ 0 mls/hr 03/21/20 11:45 03/29/20 20:46 Sodium Chloride IVPB 100 mls INF BRITTANIE Administration Protocol Titrate Meropenem 2 gm/ Miscellaneous 100 mls @ 200 mls/hr 03/27/20 09:00 04/02/20 10 :11 Medication 1 each/ Sodium IVPB 100 mls Chloride Q8H BRITTANIE Administration Vancomycin HCl 1.75 gm/ Sodium 500 mls @ 250 mls/hr 03/31/20 09:00 04/02/20 09:30 Chloride IVPB 500 mls Q12HR BRITTANIE Administration Potassium Chloride 40 meq/ 1,020 mls @ 100 mls/hr 04/02/20 09:00 04/02/20 10: 12 Dextrose/Water IV 1,020 mls .[id number] BRITTANIE Administration Metoclopramide HCl 10 mg 03/26/20 14:00 04/02/20 09:55 Reglan IVP Not Given 0200,0800,1400,2000 BRITTANIE Ondansetron HCl 4 mg 03/20/20 06:38 04/01/20 23:16 Zofran IVP 4 mg Q6H PRN Administration Nausea/Vomiting, use 1st Sodium Chloride 10 ml 03/28/20 09:00 04/02/20 10:13 Flush - Normal Saline IVF 10 ml Q12HR BRITTANIE Administration Sodium Chloride 10 ml 03/28/20 06:26 03/31/20 03:27 Flush - Normal Saline IVF 10 ml PRN PRN Administration Saline Flush - Exam General - other findings: Sleeping Eye: PERRL ENT: normocephalic atraumatic Neck: supple Heart: RRR, normal peripheral pulses Respiratory: CTAB, normal chest expansion Gastrointestinal: soft, normal bowel sounds Neurological: no focal deficits Psychiatric: not oriented Hosp A/P - Plan (1) Acute respiratory failure with hypoxemia -Due to methadone overdose Hypoxic encephalopathy Metabolic encephalopathy due to drug overdose (2) Aspiration pneumonia Code(s): J69.0 - PNEUMONITIS DUE TO INHALATION OF FOOD AND VOMIT Status: Acute (3) Methadone overdose Code(s): T40.3X1A - POISONING BY METHADONE, ACCIDENTAL (UNINTENTIONAL), INIT Status: Acute - Plan * Acute respiratory failure due to overdose on Methadone, and aspiration pneumonia. * EEG results noted " Intermittent irregular theta activity and nonsustained slow posterior background rhythm Suggesting nonspecific cerebral dysfunction no epileptiform abnormalities during the recording. * Possible Aspiration pneumonia- on meropenem and Vanco currently * * Nutritional support with tube feeding * Continue supportive care as per [facility] * * Continue DVT and GI Prophyaxis * * Full code Status post extubation on ninth -Continue above medical management. 10th Persistent metabolic encephalopathy Hypernatremia--due to lack of free water access and poor p.o. intake--giving free water checking urine as well as serum osmolality TSH and random cortisol and will repeat the sodium level this afternoon. If persistently elevated or trending up will consult to the renal to help us. Hypokalemia--replace the lites History of methadone use and presented with methadone overdose -Not sure what the dose would be I would still refrain from starting him on methadone even at low dose -Instead I scheduled Valium. Leukocytosis on antibiotic -Probably stress demargination. No sign of infection. He is afebrile His UA showed mostly uric acid crystals proteinuria and the insignificant WBCs. Chest x-ray no new infiltrate other than patchy infiltrate at the lung bases that was noted in the past. He is on Merrem for that. Blood culture off fifth showed coag negative Staphylococcus. This is 1 out of 2 ; other sets no growth for the last 5 days. Heamturia and proteinuria --repeat the UA, if persistent hematuria, get US and may consider urology eval. 11th Hypernatremia Hyperkalemia -Serum osmolality very high suggestive of significant volume depletion; urine osmolality high - suggested that kidney is appropriately functioning. Holding the water. - Sodium is 155 remained the same like yesterday not worsening. Potassium 5.6 Kayexalate given. Will check his potassium level this evening. D5 running at 200 mL an hour. Renal ultrasound-no obstruction I talked to the yesterday evening almost 30 minutes. She states that he is quite extensively abusing the drugs. She wants to know whether any rehab options can be explored once he is medically stable. I have explained to her that when he is alert oriented and able to have a meaningful conversation then will ask mental health for video conferencing with him. Very likely they would like to follow-up with him in an outpatient setting. 12th Continue the supportive measures for the most part. Will DC the scheduled Ativan. He is not ready yet for any meaningful physical therapy evaluation. And he is too risky to move him to the medical floor --fall risk patient, unless we provide the sitter. Plan is to consult to the mental health for video conferencing with the patient for drug rehab options, and patient is back to baseline mentally and able to communicate with us meaningfully. 13th He is okay to be transferred to the floor. if possible we can put a sitter otherwise close observation. When he is able to communicate with us then I will initiate to the video conference with mental health.
--- NOTE | 2020-04-02 17:23 | PRG ---
DATE OF SERVICE: 04/02/2020 SUBJECTIVE: The patient was seen and examined, seems to be today, noted with the following vital signs. OBJECTIVE: VITAL SIGNS: Afebrile, temperature 99, pulse 79, respiratory rate of 20, and O2 saturation is 95%, and blood pressure 134/69. HEENT: Unremarkable CARDIOVASCULAR SYSTEM: First and second heart sounds were heard. RESPIRATORY SYSTEM: Clear to auscultation. DIGESTIVE SYSTEM: Revealed a benign abdomen. Positive bowel sounds. EXTREMITIES: No peripheral edema. SKIN: No new gross rash. LYMPHATICS: No peripheral lymphadenopathy. LABORATORY INVESTIGATION: Showed a hemoglobin of 10.7. Chemistry showed a sodium of 142, potassium 3.9. IMPRESSION: 1. Hypernatremia, which has improved. 2. Hypokalemia. PLAN: 1. Reduce the patient's rate of IV fluids down to 100 mL an hour. 2. Add potassium to the IV fluid and replete potassium orally also. 3. Encourage the patient to eat and drink. 4. Further management to be dependent on the clinical course. Job ID: [id number]
[2020-04-03] MEDS: Metoclopramide HCl 10 MG/2 ML VIAL IVP SCH ×4 (01:17→20:13)
[2020-04-03] MEDS: Meropenem 2 GM, Admixture Fee 1 EACH in Sodium Chloride 0.9% 100 ML IVPB SCH ×3 (01:18→16:58)
[2020-04-03] MEDS: Dextrose 5% in Water 1,000 ML IV SCH (01:42)
[2020-04-03] MEDS ORDERED: diphenhydrAMINE 25 MG CAP PO SCH ×2 (02:45→21:15)
[2020-04-03] MEDS: Potassium Chloride 40 MEQ in Dextrose 5% in Water 1,000 ML IV SCH ×2 (05:05→16:57)
[2020-04-03 06:13] LABS: Mean Corpuscular HGB CONC 32.7 g/dL (32.0-36.0); Mean Corpuscular Volume 91.9 fL (78.0-98.0); Mean Platelet Volume 9.9 fL (7.4-10.4); Platelet Count 277 thou/uL (130-400); Red Blood Cell (RBC) Count 3.67 mill/uL (4.70-6.10); White Blood Cell (WBC) Count 8.1 thou/uL (4.8-10.8)
[2020-04-03 06:17] LABS: Band 1 % (5-11); Eosinophils 3 % (0-10); Lymphocytes 19 % (21-51); MDiff Complete? YES; Monocytes 8 % (0-10); Neutrophil 69 % (42-75)
[2020-04-03 06:23] LABS: Anion Gap 9 mmol/L (10-20); BUN (Urea Nitrogen) 11 mg/dL (8.4-25.7); Calc. Creatinine Clearance 165 mL/min (70-130); Calcium 8.2 mg/dL (7.8-10.44); Carbon Dioxide 26 mmol/L (22-29); Chloride 110 mmol/L (98-107); Estimated GFR-MDRD Greater than 90; Glucose 106 mg/dL (70-105); Potassium 3.5 mmol/L (3.5-5.1); Sodium 141 mmol/L (136-145)
[2020-04-03] MEDS: Diazepam 5 MG TAB PO SCH (07:58)
[2020-04-03] MEDS: Potassium Chloride 20 MEQ in Premix Bag 1 BAG IVPB SCH ×2 (09:52→11:17)
[2020-04-03] MEDS: Famotidine/PF 20 mg/2ml Vial SLOW IVP SCH ×2 (09:53→20:12)
[2020-04-03] MEDS: Enoxaparin Sodium 40 MG/0.4 ML SYRINGE SC SCH (09:53)
[2020-04-03] MEDS: Vancomycin HCl 1.75 GM in Sodium Chloride 0.9% 500 ML IVPB SCH ×3 (11:20→22:02)
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
[2020-04-03] MEDS ORDERED: Lorazepam 2 MG/ML VIAL SLOW IVP PRN (13:37)
[2020-04-04] MEDS: Meropenem 2 GM, Admixture Fee 1 EACH in Sodium Chloride 0.9% 100 ML IVPB SCH ×3 (01:17→17:23)
[2020-04-04] MEDS: Potassium Chloride 40 MEQ in Dextrose 5% in Water 1,000 ML IV SCH ×2 (01:18→15:21)
[2020-04-04] MEDS: Metoclopramide HCl 10 MG/2 ML VIAL IVP SCH ×4 (01:18→21:44)
[2020-04-04 07:31] LABS: Anion Gap 9 mmol/L (10-20); BUN (Urea Nitrogen) 7 mg/dL (8.4-25.7); Calc. Creatinine Clearance 164 mL/min (70-130); Calcium 8.2 mg/dL (7.8-10.44); Carbon Dioxide 24 mmol/L (22-29); Chloride 111 mmol/L (98-107); Estimated GFR-MDRD Greater than 90; Glucose 113 mg/dL (70-105); Potassium 3.3 mmol/L (3.5-5.1); Sodium 141 mmol/L (136-145)
[2020-04-04 07:55] LABS: Band 6 % (5-11); Eosinophils 6 % (0-10); Hemoglobin 11.3 g/dL (14.0-18.0); Lymphocytes 14 % (21-51); MDiff Complete? YES; Mean Corpuscular HGB CONC 33.2 g/dL (32.0-36.0); Mean Corpuscular Hemoglobin 30.5 pg (27.0-31.0); Mean Corpuscular Volume 92.1 fL (78.0-98.0); Mean Platelet Volume 9.7 fL (7.4-10.4); Monocytes 1 % (0-10); Neutrophil 73 % (42-75); Platelet Count 281 thou/uL (130-400); RBC Distribution Width 13.7 % (11.5-14.5); Red Blood Cell (RBC) Count 3.71 mill/uL (4.70-6.10); White Blood Cell (WBC) Count 7.2 thou/uL (4.8-10.8)
[2020-04-04] MEDS: Enoxaparin Sodium 40 MG/0.4 ML SYRINGE SC SCH (08:34)
[2020-04-04] MEDS: Famotidine/PF 20 mg/2ml Vial SLOW IVP SCH ×2 (08:34→21:44)
[2020-04-04] MEDS: Vancomycin HCl 1.75 GM in Sodium Chloride 0.9% 500 ML IVPB SCH ×2 (11:31→21:45)
[2020-04-04] MEDS ORDERED: Potassium Chloride 20 MEQ TAB PO SCH (14:30)
--- NOTE | 2020-04-04 14:55 | PDOC.HOSPP ---
- Subjective Encounter Date: 04/04/20 Encounter Time: 14:53 Subjective: Mr. Maradiaga was seen today in follow-up of metabolic encephalopathy. He is awake and alert. He knows where he is, why he is in the hospital, and the date and year. - Objective Vital Signs & Weight: Vital Signs (12 hours) Temp Pulse Resp BP Pulse Ox 04/04/20 14:11 85 14 04/04/20 08:00 96 04/04/20 07:12 98.6 F 96 16 162/79 H 93 L 04/04/20 06:59 90 16 Weight Admit Weight 240 lb 3.2 oz Weight 219 lb 2 oz Most Recent Monitor Data Heart Rate from ECG 91 NIBP 138/58 NIBP BP-Mean 84 Respiration from ECG 35 SpO2 83 I&O: 04/03/20 04/04/20 04/05/20 06:59 06:59 06:59 Intake Total 4320 Output Total 2610 Balance 1710 Result Diagrams: 04/04/20 06:12 04/04/20 06:12 Additional Labs: Accuchecks 04/04/20 04/04/20 04/03/20 11:40 05:34 20:22 POC Glucose 116 H 90 95 04/03/20 15:35 POC Glucose 111 H Hospitalist ROS - Medication Medications: Active Medications Generic Name Dose Route Start Last Admin Trade Name Freq PRN Reason Stop Dose Admin Acetaminophen 650 mg 03/25/20 11:20 03/27/20 10:56 Tylenol Elixir PER TUBE 650 mg Q6H PRN Administration Fever > 101 Albuterol/Ipratropium 3 ml 03/20/20 07:00 04/04/20 14:11 Duoneb NEB 3 ml [id number] BRITTANIE Administration Clonidine 0.1 mg 03/20/20 06:38 03/30/20 13:38 Catapres PO 0.1 mg BIDPRN PRN Administration SBP > 160, use second Enoxaparin Sodium 40 mg 03/21/20 09:00 04/04/20 08:34 Lovenox SC 40 mg 0900 BRITTANIE Administration Famotidine 20 mg 03/20/20 21:00 04/04/20 08:34 Pepcid SLOW IVP 20 mg BID BRITTANIE Administration Haloperidol Lactate 10 mg 03/27/20 08:45 04/01/20 23:17 Haldol IM 10 mg Q4H PRN Administration Severe Agitation Dexmedetomidine HCl 400 mcg/ 100 mls @ 0 mls/hr 03/21/20 11:45 03/29/20 20:46 Sodium Chloride IVPB 100 mls INF BRITTANIE Administration Protocol Titrate Meropenem 2 gm/ Miscellaneous 100 mls @ 200 mls/hr 03/27/20 09:00 04/04/20 10 :06 Medication 1 each/ Sodium IVPB 100 mls Chloride Q8H BRITTANIE Administration Vancomycin HCl 1.75 gm/ Sodium 500 mls @ 250 mls/hr 04/03/20 10:00 04/04/20 11:31 Chloride IVPB 500 mls 1000,2200 BRITTANIE Administration Metoclopramide HCl 10 mg 03/26/20 14:00 04/04/20 08:34 Reglan IVP 10 mg 0200,0800,1400,2000 BRITTANIE Administration Ondansetron HCl 4 mg 03/20/20 06:38 04/01/20 23:16 Zofran IVP 4 mg Q6H PRN Administration Nausea/Vomiting, use 1st Sodium Chloride 10 ml 03/28/20 09:00 04/04/20 10:06 Flush - Normal Saline IVF 10 ml Q12HR BRITTANIE Administration Sodium Chloride 10 ml 03/28/20 06:26 03/31/20 03:27 Flush - Normal Saline IVF 10 ml PRN PRN Administration Saline Flush - Exam Eye: PERRL, anicteric sclera ENT: normocephalic atraumatic, no oropharyngeal lesions Heart: RRR, no murmur, no gallops, no rubs, normal peripheral pulses Respiratory: CTAB, no wheezes, no rales, no ronchi, normal chest expansion, no tachypnea Gastrointestinal: soft, non-tender, non-distended, normal bowel sounds, no palpable masses Extremities: no cyanosis, no edema Hosp A/P (1) Acute respiratory failure with hypoxemia Code(s): J96.01 - ACUTE RESPIRATORY FAILURE WITH HYPOXIA Status: Acute (2) Aspiration pneumonia Code(s): J69.0 - PNEUMONITIS DUE TO INHALATION OF FOOD AND VOMIT Status: Acute (3) Methadone overdose Code(s): T40.3X1A - POISONING BY METHADONE, ACCIDENTAL (UNINTENTIONAL), INIT Status: Acute - Plan * Acute respiratory failure due to overdose on Methadone- resolved * Metabolic encephalopathy- almost completely resolved. * Severe deconditioning- continue PT * Continue DVT and GI Prophyaxis * Encourage increased oral intake * Chronic pain- stable- will avoid narcotic medications * Hopefully he can be discharged eiher home, or to Rehab in a few days.
[2020-04-04] MEDS: Potassium Chloride 20 MEQ in Premix Bag 1 BAG IVPB SCH ×2 (15:20→15:21)
[2020-04-05] MEDS: Meropenem 2 GM, Admixture Fee 1 EACH in Sodium Chloride 0.9% 100 ML IVPB SCH ×3 (01:59→17:16)
[2020-04-05] MEDS: Metoclopramide HCl 10 MG/2 ML VIAL IVP SCH ×4 (02:05→20:27)
[2020-04-05 06:46] LABS: Hemoglobin 10.6 g/dL (14.0-18.0); Mean Corpuscular HGB CONC 33.1 g/dL (32.0-36.0); Mean Corpuscular Hemoglobin 30.4 pg (27.0-31.0); Mean Corpuscular Volume 91.8 fL (78.0-98.0); Mean Platelet Volume 9.5 fL (7.4-10.4); Platelet Count 264 thou/uL (130-400); Red Blood Cell (RBC) Count 3.49 mill/uL (4.70-6.10); White Blood Cell (WBC) Count 5.8 thou/uL (4.8-10.8)
[2020-04-05 06:56] LABS: Band 5 % (5-11); Eosinophils 1 % (0-10); Lymphocytes 18 % (21-51); MDiff Complete? YES; Monocytes 5 % (0-10); Neutrophil 71 % (42-75)
[2020-04-05 06:59] LABS: Anion Gap 12 mmol/L (10-20); BUN (Urea Nitrogen) 5 mg/dL (8.4-25.7); Calc. Creatinine Clearance 166 mL/min (70-130); Calcium 7.8 mg/dL (7.8-10.44); Carbon Dioxide 22 mmol/L (22-29); Chloride 110 mmol/L (98-107); Estimated GFR-MDRD Greater than 90; Glucose 99 mg/dL (70-105); Potassium 3.2 mmol/L (3.5-5.1); Sodium 141 mmol/L (136-145)
[2020-04-05] MEDS ORDERED: Potassium Chloride 20 MEQ TAB PO SCH ×3 (07:45→20:00)
[2020-04-05] MEDS: Famotidine/PF 20 mg/2ml Vial SLOW IVP SCH ×2 (08:35→20:27)
[2020-04-05] MEDS: Enoxaparin Sodium 40 MG/0.4 ML SYRINGE SC SCH (08:36)
[2020-04-05 11:06] LABS: Vancomycin, Trough 16.9 ug/mL
[2020-04-05] MEDS: Vancomycin HCl 1.75 GM in Sodium Chloride 0.9% 500 ML IVPB SCH ×2 (11:55→21:21)
--- NOTE | 2020-04-05 17:14 | PDOC.HOSPP ---
- Subjective Encounter Date: 04/05/20 Encounter Time: 17:13 Subjective: Mr. Maradiaga was seen today in follow-up of respiratory failure and methadone overdose. He is resting in bed. He notes some difficulty sleeping last night. He was able to ambulate today without difficulty. - Objective Vital Signs & Weight: Vital Signs (12 hours) Temp Pulse Resp BP BP Pulse Ox 04/05/20 16:09 98.8 F 106 H 16 168/94 H 98 04/05/20 11:43 98.8 F 96 18 156/78 H 94 L 04/05/20 08:00 98 04/05/20 07:16 99.8 F H 101 H 16 160/81 H 98 04/05/20 06:38 108 H 14 Weight Admit Weight 240 lb 3.2 oz Weight 218 lb 14.4 oz Most Recent Monitor Data Heart Rate from ECG 91 NIBP 138/58 NIBP BP-Mean 84 Respiration from ECG 35 SpO2 83 I&O: 04/04/20 04/05/20 04/06/20 06:59 06:59 06:59 Intake Total 1280 Output Total 400 Balance 880 Result Diagrams: 04/05/20 05:44 04/05/20 05:44 Additional Labs: Accuchecks 04/05/20 04/05/20 04/05/20 16:13 11:48 05:21 POC Glucose 94 94 90 04/04/20 20:12 POC Glucose 89 Hospitalist ROS - Medication Medications: Active Medications Generic Name Dose Route Start Last Admin Trade Name Freq PRN Reason Stop Dose Admin Acetaminophen 650 mg 03/25/20 11:20 03/27/20 10:56 Tylenol Elixir PER TUBE 650 mg Q6H PRN Administration Fever > 101 Albuterol/Ipratropium 3 ml 03/20/20 07:00 04/05/20 14:02 Duoneb NEB Not Given [id number] BRITTANIE Clonidine 0.1 mg 03/20/20 06:38 03/30/20 13:38 Catapres PO 0.1 mg BIDPRN PRN Administration SBP > 160, use second Enoxaparin Sodium 40 mg 03/21/20 09:00 04/05/20 08:36 Lovenox SC 40 mg 0900 BRITTANIE Administration Famotidine 20 mg 03/20/20 21:00 04/05/20 08:35 Pepcid SLOW IVP 20 mg BID BRITTANIE Administration Haloperidol Lactate 10 mg 03/27/20 08:45 04/01/20 23:17 Haldol IM 10 mg Q4H PRN Administration Severe Agitation Dexmedetomidine HCl 400 mcg/ 100 mls @ 0 mls/hr 03/21/20 11:45 03/29/20 20:46 Sodium Chloride IVPB 100 mls INF BRITTANIE Administration Protocol Titrate Meropenem 2 gm/ Miscellaneous 100 mls @ 200 mls/hr 03/27/20 09:00 04/05/20 08 :36 Medication 1 each/ Sodium IVPB 100 mls Chloride Q8H BRITTANIE Administration Vancomycin HCl 1.75 gm/ Sodium 500 mls @ 250 mls/hr 04/03/20 10:00 04/05/20 11:55 Chloride IVPB 500 mls 1000,2200 BRITTANIE Administration Metoclopramide HCl 10 mg 03/26/20 14:00 04/05/20 14:40 Reglan IVP 10 mg 0200,0800,1400,2000 BRITTANIE Administration Ondansetron HCl 4 mg 03/20/20 06:38 04/01/20 23:16 Zofran IVP 4 mg Q6H PRN Administration Nausea/Vomiting, use 1st Sodium Chloride 10 ml 03/28/20 09:00 04/05/20 08:45 Flush - Normal Saline IVF 10 ml Q12HR BRITTANIE Administration Sodium Chloride 10 ml 03/28/20 06:26 04/05/20 14:45 Flush - Normal Saline IVF 10 ml PRN PRN Administration Saline Flush - Exam Eye: PERRL, anicteric sclera Heart: RRR, no murmur, no gallops, no rubs, normal peripheral pulses Respiratory: CTAB, no wheezes, no rales, no ronchi, normal chest expansion, no tachypnea Gastrointestinal: soft, non-tender, non-distended, normal bowel sounds, no palpable masses Extremities: no cyanosis, no edema Hosp A/P (1) Acute respiratory failure with hypoxemia Code(s): J96.01 - ACUTE RESPIRATORY FAILURE WITH HYPOXIA Status: Acute (2) Aspiration pneumonia Code(s): J69.0 - PNEUMONITIS DUE TO INHALATION OF FOOD AND VOMIT Status: Acute (3) Methadone overdose Code(s): T40.3X1A - POISONING BY METHADONE, ACCIDENTAL (UNINTENTIONAL), INIT Status: Acute - Plan * Acute respiratory failure due to overdose on Methadone- resolved * Metabolic encephalopathy- resolved * Continue DVT and GI Prophyaxis * Encourage increased oral intake * Chronic pain- stable- will avoid narcotic medications * Continue to ambulate * Hopefully home in a few days
[2020-04-05] MEDS ORDERED: diphenhydrAMINE 25 MG CAP PO SCH (19:30)
--- NOTE | 2020-04-05 20:25 | PRG ---
DATE OF SERVICE: 04/05/2020 SUBJECTIVE: The patient was seen and examined, noted with the following vital signs. OBJECTIVE: VITAL SIGNS: Afebrile, temperature 99.2, pulse 97, respiratory rate of 18, and O2 saturations 93% with blood pressure 170/82. HEENT: Unremarkable. CARDIOVASCULAR SYSTEM: First and second heart sounds were heard. RESPIRATORY SYSTEM: Clear to auscultation. DIGESTIVE SYSTEM: Revealed a benign abdomen with positive bowel sounds. EXTREMITIES: No peripheral edema. SKIN: No new gross rash. LYMPHATICS: No peripheral lymphadenopathy. LABORATORY INVESTIGATION: Significant for hemoglobin of 10.6. Chemistry showed a sodium of 141 and potassium of 3.2. IMPRESSION: 1. Hypernatremia, which has resolved in the context of free water repletion. 2. Mild hypokalemia. PLAN: 1. Replete potassium. 2. Discontinue IV fluid. 3. Discontinue daily blood draws to avoid iatrogenic anemia. 4. Further management to be dependent on the clinical course. Job ID: [id number]
[2020-04-06] MEDS: Meropenem 2 GM, Admixture Fee 1 EACH in Sodium Chloride 0.9% 100 ML IVPB SCH ×3 (00:21→19:54)
[2020-04-06] MEDS: Metoclopramide HCl 10 MG/2 ML VIAL IVP SCH ×4 (01:34→19:54)
[2020-04-06 06:10] LABS: Anion Gap 11 mmol/L (10-20); BUN (Urea Nitrogen) 5 mg/dL (8.4-25.7); Calc. Creatinine Clearance 154 mL/min (70-130); Calcium 8.3 mg/dL (7.8-10.44); Carbon Dioxide 23 mmol/L (22-29); Chloride 109 mmol/L (98-107); Estimated GFR-MDRD Greater than 90; Glucose 96 mg/dL (70-105); Potassium 4.1 mmol/L (3.5-5.1); Sodium 139 mmol/L (136-145)
[2020-04-06] MEDS: Famotidine/PF 20 mg/2ml Vial SLOW IVP SCH ×2 (07:57→19:53)
[2020-04-06] MEDS: Enoxaparin Sodium 40 MG/0.4 ML SYRINGE SC SCH (07:57)
[2020-04-06] MEDS: Vancomycin HCl 1.75 GM in Sodium Chloride 0.9% 500 ML IVPB SCH ×2 (10:14→22:10)
[2020-04-06 11:58] VITALS: BMI 32.0
--- NOTE | 2020-04-06 14:47 | PDOC.HOSPP ---
- Subjective Encounter Date: 04/06/20 Encounter Time: 14:45 Subjective: Ms. Maradiaga was seen today in follow-up of metabolic encephalopathy due to Methadone overodse. He does not have any complaints. He is asking to go home. - Objective Vital Signs & Weight: Vital Signs (12 hours) Temp Pulse Resp BP Pulse Ox 04/06/20 11:21 98.8 F 99 16 153/74 H 96 04/06/20 08:09 96 04/06/20 07:25 99.7 F H 108 H 18 161/84 H 95 04/06/20 07:01 95 14 96 Weight Admit Weight 240 lb 3.2 oz Weight 216 lb 12.8 oz Most Recent Monitor Data Heart Rate from ECG 91 NIBP 138/58 NIBP BP-Mean 84 Respiration from ECG 35 SpO2 83 I&O: 04/05/20 04/06/20 04/07/20 06:59 06:59 06:59 Intake Total 1280 3180 Output Total 400 800 Balance 880 2380 Result Diagrams: 04/05/20 05:44 04/06/20 05:29 Additional Labs: Accuchecks 04/06/20 04/06/20 04/05/20 11:29 05:13 19:21 POC Glucose 90 99 92 04/05/20 16:13 POC Glucose 94 Hospitalist ROS - Medication Medications: Active Medications Generic Name Dose Route Start Last Admin Trade Name Freq PRN Reason Stop Dose Admin Acetaminophen 650 mg 03/25/20 11:20 03/27/20 10:56 Tylenol Elixir PER TUBE 650 mg Q6H PRN Administration Fever > 101 Clonidine 0.1 mg 03/20/20 06:38 03/30/20 13:38 Catapres PO 0.1 mg BIDPRN PRN Administration SBP > 160, use second Enoxaparin Sodium 40 mg 03/21/20 09:00 04/06/20 07:57 Lovenox SC 40 mg 0900 BRITTANIE Administration Famotidine 20 mg 03/20/20 21:00 04/06/20 07:57 Pepcid SLOW IVP 20 mg BID BRITTANIE Administration Haloperidol Lactate 10 mg 03/27/20 08:45 04/01/20 23:17 Haldol IM 10 mg Q4H PRN Administration Severe Agitation Dexmedetomidine HCl 400 mcg/ 100 mls @ 0 mls/hr 03/21/20 11:45 03/29/20 20:46 Sodium Chloride IVPB 100 mls INF BRITTANIE Administration Protocol Titrate Meropenem 2 gm/ Miscellaneous 100 mls @ 200 mls/hr 03/27/20 09:00 04/06/20 10 :06 Medication 1 each/ Sodium IVPB 100 mls Chloride Q8H BRITTANIE Administration Vancomycin HCl 1.75 gm/ Sodium 500 mls @ 250 mls/hr 04/03/20 10:00 04/06/20 10:14 Chloride IVPB 500 mls 1000,2200 BRITTANIE Administration Metoclopramide HCl 10 mg 03/26/20 14:00 04/06/20 13:59 Reglan IVP 10 mg 0200,0800,1400,2000 BRITTANIE Administration Ondansetron HCl 4 mg 03/20/20 06:38 04/01/20 23:16 Zofran IVP 4 mg Q6H PRN Administration Nausea/Vomiting, use 1st Sodium Chloride 10 ml 03/28/20 09:00 04/06/20 10:07 Flush - Normal Saline IVF 10 ml Q12HR BRITTANIE Administration Sodium Chloride 10 ml 03/28/20 06:26 04/05/20 14:45 Flush - Normal Saline IVF 10 ml PRN PRN Administration Saline Flush - Exam Eye: PERRL, anicteric sclera Heart: RRR, no murmur, no gallops, no rubs, normal peripheral pulses Respiratory: CTAB, no wheezes, no rales, no ronchi, normal chest expansion, no tachypnea Gastrointestinal: soft, non-tender, non-distended, normal bowel sounds, no palpable masses Extremities: no cyanosis, no clubbing, no edema Hosp A/P (1) Acute respiratory failure with hypoxemia Code(s): J96.01 - ACUTE RESPIRATORY FAILURE WITH HYPOXIA Status: Acute (2) Aspiration pneumonia Code(s): J69.0 - PNEUMONITIS DUE TO INHALATION OF FOOD AND VOMIT Status: Acute (3) Methadone overdose Code(s): T40.3X1A - POISONING BY METHADONE, ACCIDENTAL (UNINTENTIONAL), INIT Status: Acute - Plan * Acute respiratory failure due to overdose on Methadone- resolved * Metabolic encephalopathy- resolved * Continue DVT and GI Prophyaxis * Encourage increased oral intake * Chronic pain- stable- will avoid narcotic medications * Continue to ambulate * PT evaluation noted- it is recommended that he have a stay in Rehab prior to going home. He is unsteady with his gait. However he may be unfunded. Will discuss with Case Management as well as with patient and his .
[2020-04-07] MEDS: Metoclopramide HCl 10 MG/2 ML VIAL IVP SCH ×3 (02:47→15:06)
[2020-04-07] MEDS ORDERED: Acetaminophen 325 MG/10.15 ML UDCUP PER TUBE PRN (03:22)
[2020-04-07 07:46] VITALS: BP 119/60; TEMP 98.5
[2020-04-07 09:18] LABS: Vancomycin, Trough 19.3 ug/mL
[2020-04-07] MEDS: Famotidine/PF 20 mg/2ml Vial SLOW IVP SCH (09:19)
[2020-04-07] MEDS: Enoxaparin Sodium 40 MG/0.4 ML SYRINGE SC SCH (09:21)
[2020-04-07] MEDS: Vancomycin HCl 1.75 GM in Sodium Chloride 0.9% 500 ML IVPB SCH ×2 (13:11→14:53)
--- NOTE | 2020-04-07 15:42 | PDOC.HOSPP ---
- Subjective Encounter Date: 04/07/20 Encounter Time: 15:40 Subjective: Mr. Maradiaga was seen today infollow-up of methadone overdose. He notes seom soreness in his ankles, but otherwise no concerns. - Objective Vital Signs & Weight: Vital Signs (12 hours) Temp Pulse Resp BP BP Pulse Ox 04/07/20 08:00 95 04/07/20 07:45 98.5 F 104 H 16 119/60 95 04/07/20 04:39 99.7 F H 104 H 18 132/74 93 L Weight Admit Weight 240 lb 3.2 oz Weight 217 lb 1 oz Most Recent Monitor Data Heart Rate from ECG 91 NIBP 138/58 NIBP BP-Mean 84 Respiration from ECG 35 SpO2 83 I&O: 04/06/20 04/07/20 04/08/20 06:59 06:59 06:59 Intake Total 3180 1640 Output Total 800 1250 Balance 2380 390 Result Diagrams: 04/05/20 05:44 04/06/20 05:29 Additional Labs: Accuchecks 04/07/20 04/06/20 11:41 19:52 POC Glucose 99 111 H Hospitalist ROS - Medication Medications: Active Medications Generic Name Dose Route Start Last Admin Trade Name Freq PRN Reason Stop Dose Admin Acetaminophen 650 mg 04/07/20 03:22 04/07/20 09:21 Tylenol Elixir PER TUBE 650 mg Q6H PRN Administration Fever > 101 Clonidine 0.1 mg 03/20/20 06:38 03/30/20 13:38 Catapres PO 0.1 mg BIDPRN PRN Administration SBP > 160, use second Enoxaparin Sodium 40 mg 03/21/20 09:00 04/07/20 09:21 Lovenox SC Not Given 0900 BRITTANIE Famotidine 20 mg 03/20/20 21:00 04/07/20 09:19 Pepcid SLOW IVP 20 mg BID BRITTANIE Administration Haloperidol Lactate 10 mg 03/27/20 08:45 04/01/20 23:17 Haldol IM 10 mg Q4H PRN Administration Severe Agitation Dexmedetomidine HCl 400 mcg/ 100 mls @ 0 mls/hr 03/21/20 11:45 03/29/20 20:46 Sodium Chloride IVPB 100 mls INF BRITTANIE Administration Protocol Titrate Vancomycin HCl 1.75 gm/ Sodium 500 mls @ 250 mls/hr 04/03/20 10:00 04/07/20 14:53 Chloride IVPB Not Given 1000,2200 BRITTANIE Metoclopramide HCl 10 mg 03/26/20 14:00 04/07/20 15:06 Reglan IVP Not Given 0200,0800,1400,2000 BRITTANIE Ondansetron HCl 4 mg 03/20/20 06:38 04/01/20 23:16 Zofran IVP 4 mg Q6H PRN Administration Nausea/Vomiting, use 1st Sodium Chloride 10 ml 03/28/20 09:00 04/07/20 09:51 Flush - Normal Saline IVF Not Given Q12HR BRITTANIE Sodium Chloride 10 ml 03/28/20 06:26 04/05/20 14:45 Flush - Normal Saline IVF 10 ml PRN PRN Administration Saline Flush - Exam Eye: PERRL, anicteric sclera Heart: RRR, no murmur, no gallops, no rubs, normal peripheral pulses Respiratory: CTAB, no wheezes, no rales, no ronchi, normal chest expansion Gastrointestinal: soft, non-tender, non-distended, normal bowel sounds, no palpable masses Extremities: no cyanosis, no edema Hosp A/P (1) Acute respiratory failure with hypoxemia Code(s): J96.01 - ACUTE RESPIRATORY FAILURE WITH HYPOXIA Status: Acute (2) Aspiration pneumonia Code(s): J69.0 - PNEUMONITIS DUE TO INHALATION OF FOOD AND VOMIT Status: Acute (3) Methadone overdose Code(s): T40.3X1A - POISONING BY METHADONE, ACCIDENTAL (UNINTENTIONAL), INIT Status: Acute - Plan * Acute respiratory failure due to overdose on Methadone- resolved * Metabolic encephalopathy- resolved * Continue DVT and GI Prophyaxis * Encourage increased oral intake * Chronic pain- stable- off medications * Home today
--- NOTE | 2020-04-07 16:02 | PDOC.HOSPP ---
- Subjective Encounter Date: 04/07/20 Encounter Time: 15:58 Subjective: Mr. Maradiaga was seen today in follow-up of methadone overdose. He does not have any complaints. - Objective Vital Signs & Weight: Vital Signs (12 hours) Temp Pulse Resp BP BP Pulse Ox 04/07/20 08:00 95 04/07/20 07:45 98.5 F 104 H 16 119/60 95 04/07/20 04:39 99.7 F H 104 H 18 132/74 93 L Weight Admit Weight 240 lb 3.2 oz Weight 217 lb 1 oz Most Recent Monitor Data Heart Rate from ECG 91 NIBP 138/58 NIBP BP-Mean 84 Respiration from ECG 35 SpO2 83 I&O: 04/06/20 04/07/20 04/08/20 06:59 06:59 06:59 Intake Total 3180 1640 Output Total 800 1250 Balance 2380 390 Result Diagrams: 04/05/20 05:44 04/06/20 05:29 Additional Labs: Accuchecks 04/07/20 04/06/20 11:41 19:52 POC Glucose 99 111 H Hospitalist ROS - Medication Medications: Active Medications Generic Name Dose Route Start Last Admin Trade Name Freq PRN Reason Stop Dose Admin Acetaminophen 650 mg 04/07/20 03:22 04/07/20 09:21 Tylenol Elixir PER TUBE 650 mg Q6H PRN Administration Fever > 101 Clonidine 0.1 mg 03/20/20 06:38 03/30/20 13:38 Catapres PO 0.1 mg BIDPRN PRN Administration SBP > 160, use second Enoxaparin Sodium 40 mg 03/21/20 09:00 04/07/20 09:21 Lovenox SC Not Given 0900 BRITTANIE Famotidine 20 mg 03/20/20 21:00 04/07/20 09:19 Pepcid SLOW IVP 20 mg BID BRITTANIE Administration Haloperidol Lactate 10 mg 03/27/20 08:45 04/01/20 23:17 Haldol IM 10 mg Q4H PRN Administration Severe Agitation Dexmedetomidine HCl 400 mcg/ 100 mls @ 0 mls/hr 03/21/20 11:45 03/29/20 20:46 Sodium Chloride IVPB 100 mls INF BRITTANIE Administration Protocol Titrate Vancomycin HCl 1.75 gm/ Sodium 500 mls @ 250 mls/hr 04/03/20 10:00 04/07/20 14:53 Chloride IVPB Not Given 1000,2200 BRITTANIE Metoclopramide HCl 10 mg 03/26/20 14:00 04/07/20 15:06 Reglan IVP Not Given 0200,0800,1400,2000 [facility] Ondansetron HCl 4 mg 03/20/20 06:38 04/01/20 23:16 Zofran IVP 4 mg Q6H PRN Administration Nausea/Vomiting, use 1st Sodium Chloride 10 ml 03/28/20 09:00 04/07/20 09:51 Flush - Normal Saline IVF Not Given Q12HR BRITTANIE Sodium Chloride 10 ml 03/28/20 06:26 04/05/20 14:45 Flush - Normal Saline IVF 10 ml PRN PRN Administration Saline Flush - Exam Eye: PERRL, anicteric sclera Heart: RRR, no murmur, no gallops, no rubs, normal peripheral pulses Respiratory: CTAB, no wheezes, no rales, no ronchi, normal chest expansion, no tachypnea Gastrointestinal: soft, non-tender, non-distended, normal bowel sounds, no palpable masses Extremities: no cyanosis, no edema Hosp A/P (1) Acute respiratory failure with hypoxemia Code(s): J96.01 - ACUTE RESPIRATORY FAILURE WITH HYPOXIA Status: Acute (2) Aspiration pneumonia Code(s): J69.0 - PNEUMONITIS DUE TO INHALATION OF FOOD AND VOMIT Status: Acute (3) Methadone overdose Code(s): T40.3X1A - POISONING BY METHADONE, ACCIDENTAL (UNINTENTIONAL), INIT Status: Acute - Plan * Acute respiratory failure due to overdose on Methadone- resolved * Metabolic encephalopathy- resolved * Continue DVT and GI Prophyaxis * Encourage increased oral intake * Chronic pain- stable- off medications * Continue to ambulate * Home today
--- NOTE | 2020-04-07 18:38 | PRG ---
DATE OF SERVICE: 04/06/2020 SUBJECTIVE: The patient was seen and examined, noted with the following vital signs. OBJECTIVE: VITAL SIGNS: Afebrile, temperature 98.8, pulse 99, respiratory rate of 16, O2 saturations of 93%, and blood pressure 163/74. HEENT: Unremarkable. CARDIOVASCULAR: First and second heart sounds were heard. RESPIRATORY: Clear to auscultation. DIGESTIVE: Revealed a benign abdomen. Positive bowel sounds. EXTREMITIES: No peripheral edema. SKIN: No new gross rash. LYMPHATICS: No peripheral lymphadenopathy. LABORATORY INVESTIGATION: Sodium 139, creatinine 0.79. IMPRESSION: Hyponatremia, which seems to have resolved. PLAN: Continue current renal supportive measures. Job ID: [id number]
--- NOTE | 2020-04-08 01:41 | DIS ---
DATE OF ADMISSION: 03/20/2020 DATE OF DISCHARGE: 04/07/2020 DISCHARGE DISPOSITION: Home. DISCHARGE DIAGNOSES: 1. Acute respiratory failure with hypoxemia. 2. Methadone overdose. 3. Toxic metabolic encephalopathy. 4. Chronic pain. 5. Opioid addiction. 6. Hypertension. 7. Acute kidney injury, resolved. DISCHARGE MEDICATIONS: Include lisinopril 5 mg one p.o. daily. IMAGING DONE DURING THE HOSPITAL STAY: The patient had an echocardiogram in which the EF was estimated at 60% to 65%. There was grade 2/3 diastolic dysfunction. The patient also had an EEG showing some nonspecific cerebral dysfunction. The patient had a renal ultrasound showing a cyst on the right superior pole of the kidney, but no evidence of obstructive uropathy. CODE STATUS: Full code. ALLERGIES: NO KNOWN DRUG ALLERGIES. HOSPITAL COURSE: Mr. Maradiaga is a pleasant 54-year-old gentleman, who was brought to the emergency room with altered mental status and agitation. He was found to be hypoxic and confused, coughing up frothy red sputum. He was intubated and Critical Care was consulted. He has a history of chronic opioid abuse and his states that he had been taking methadone in an attempt to try to get off the narcotic medications but had taken other narcotic medications along with this. This resulted in his respiratory failure. He remained intubated for several days. He had quite a bit of agitation as well and there was some concern that he may have had hypoxic injury to the brain. However, this fortunately was ruled out. He had an EEG showing some nonspecific changes and with time, his mental status improved until he was back to the baseline mental status in which he was oriented to person, place, time, and situation. He, however, had a fairly long stay in the ICU and had become very deconditioned. He remained on the medical floor for several days, getting physical therapy in order to regain his strength. He was unfunded and therefore he was unable to be placed in rehab or skilled but by the time of discharge, he was walking several 100 feet. He was able to get into and out of the shower and perform the shower on his own. He also stated that he was aware of his problem with prescription medications and stated that he plans to seek rehabilitation for drug abuse once he leaves the hospital. I also talked with the as well about these issues. She is very well aware of his problems with prescription drugs. I also stated that he may have some underlying depression. It is hard to diagnose that in the midst of getting over this chronic illness and this is something that would need to be addressed in the outpatient setting as well. He was also placed on lisinopril for high blood pressure. The risks and benefits including angioedema and cough were discussed. He had been on amlodipine, which caused impotence in the past and for this reason, we are choosing lisinopril. The patient has been urged to follow up with his primary care physician in approximately 1 to 2 weeks. Job ID: [id number]
--- NOTE | 2020-04-09 07:15 | PQF ---
Dear : Kvng Blanton Date : 04/09/2020 Please exercise your independent, professional judgment in responding to the clarification form. Clinical indicators are provided on the bottom of this form for your review Can you please further clarify the diagnosis of the patient? Please check appropriate box(es): [X ] Aspiration Pneumonia due to drug overdose [ ] Aspiration Pneumonia not due to drug overdose [ ] Other diagnosis please specify [ ] Unable to determine Physician Signature: Date/Time: For continuity of documentation, please document condition throughout progress notes and discharge summary. Thank You. To be completed by CDI/Coding staff for physician review: Present Clinical Indicators - Signs / Symptoms / Labs Results and Location in Medical Record [ x ] ? neurogenic pulmonary pulmonary edema associated with his drug overdose PN 03/22 pg.1 [ x ] Some of this could be a chemical pneumonitis related to aspiration PN 03/22 pg.1 [ x ] Respiratory failure 2/2 drug overdose vs medication induced pulmonary edema vs aspiration pneumonia H and P pg.5 [ x ] Respiratory failure 2/2 multiple drug overdose Consult pg.1 03/20 [ x ] Toxic metabolic encephalopathy DS pg.1 [ x ] He has taking methadone in attempt to try to get off narcotic medication but had taken other narcotic medication along with this DS pg.1 [ x ] Chest Xray: persistent multifocal interstitial and alveolar opacities Chest Xray 03/20 Present Risk Factors Results and Location in Medical Record [ x ] Drug overdose H and P pg.5 [ x ] Acute respiratory failure H and P pg.5 [ x ] NSTEMI type 2 H and P pg.5 [ x ] BRITNEY H and P pg.5 [ x ] Opioid addiction DS pg.1 [ x ] Obesity PN 03/21 Present Treatments Results and Location in Medical Record [ x ] Chest X ray Chest X ray 03/20 [ x ] IV Fluids MAR 03/07 [ x ] Intubated and medically ventilated H and P pg.3 [ x ] Pulmonary Consult Dr. Donis 03/20 [ x ] Zosyn 3.375 gm IV MAR [ x ] Vancomycin 2gm IV MAR CDS/Manager Banquet Signature: Chente Weldon Phone #: [phone] Date: 04/09/20 This is a permanent part of the Medical Record [facility]
== END 2020-04-07 19:15 | disposition home or self-care (01) | DRG 917 ==
LOC: CCU 06:00 → T4-B 04-02 16:36 → T4-A 04-03 12:05
PROVIDERS: ADMIT Internal Medicine; ATTEND Internal Medicine
PROC: 5A1955Z Respiratory Ventilation, Greater than 96 Consecutive Hours (ICD-10-PCS; principal; 2020-03-20)
DX: T40.3X1A Poisoning by methadone, accidental (unintentional), initial encounter (principal); J69.0 Pneumonitis due to inhalation of food and vomit; G92 Toxic encephalopathy; J96.01 Acute respiratory failure with hypoxia; J96.02 Acute respiratory failure with hypercapnia; I21.A1 Myocardial infarction type 2; I50.43 Acute on chronic combined systolic (congestive) and diastolic (congestive) heart failure; F11.20 Opioid dependence, uncomplicated; N17.9 Acute kidney failure, unspecified; E87.1 Hypo-osmolality and hyponatremia; G93.1 Anoxic brain damage, not elsewhere classified; E87.0 Hyperosmolality and hypernatremia; G89.29 Other chronic pain; I11.0 Hypertensive heart disease with heart failure; E87.6 Hypokalemia; R31.9 Hematuria, unspecified; E87.5 Hyperkalemia; I45.81 Long QT syndrome; E66.9 Obesity, unspecified; Z68.32 Body mass index [BMI] 32.0-32.9, adult
CPT/HCPCS: 36415; 36416; 71045; 76770; 80048; 80202; 80307; 81003; 81015; 82533; 82553; 82805; 83605; 83735; 83930; 83935; 84100; 84132; 84443; 84484; 84550; 85007; 85025; 85027; 87040; 87070; 87086; 87149; 87205; 93005; 93010; 93306; 94002; 94003; 94640; 95712; 95816; 95819; 95957; J0132; J1630; J1650; J1940; J2060; J2185; J2405; J2543; J2704; J2765; J3370; J3480; J3490; J7030; J7050; J7070; J7620; Q0163; S0028